=== PATIENT | male | born 1940 | race Caucasian/White ===

== ENCOUNTER → 2017-06-29 10:55 | Outpatient (CLI) | payer MEDICARE, OTHER, SELFPAY ==
[2017-06-29 12:39] LABS: Anion Gap 10 (5-15); BUN 41 mg/dL (7-18); BUN/Creat Ratio 36.6 RATIO (10-20); Calcium,Total 9.3 mg/dL (8.5-10.1); Chloride 100 mmol/L (98-107); Creatinine, Serum 1.12 mg/dL (0.70-1.30); EST Glomerular Filtration Rate 68 mL/min (>60); Est Glom Filt Rate - Afr Amer 82 mL/min (>60); Glucose 82 mg/dL (70-110); Potassium 4.3 mmol/L (3.5-5.1); Sodium Level 139 mmol/L (136-145)
== END ==
PROVIDERS: Family Provider Family Medicine; PCP Family Medicine; Visit Provider Family Medicine
DX: F03.90 Unspecified dementia, unspecified severity, without behavioral disturbance, psychotic disturbance, mood disturbance, and anxiety (principal)
CPT/HCPCS: 36415; 80048

== ENCOUNTER → 2017-07-16 12:13 | Outpatient (CLI) | payer MEDICARE, OTHER, SELFPAY ==
[2017-07-16 12:53] LABS: Amphetamine Urine VISTA NEGATIVE (<1000 ng/mL); Barbiturate Urine VISTA NEGATIVE (< 200 ng/mL); Benzodiazepine Urine VISTA NEGATIVE (< 200 ng/mL); Cocaine Urine VISTA NEGATIVE (< 300 ng/mL); Ecstacy Urine VISTA NEGATIVE (< 500 ng/mL); Methadone Urine VISTA NEGATIVE (< 300 ng/mL); PCP Urine VISTA NEGATIVE (< 25 ng/mL); THC Urine VISTA NEGATIVE (< 50 ng/mL); Vista UDS pH Range 4
== END ==
PROVIDERS: Family Provider Family Medicine; PCP Family Medicine; Visit Provider Anesthesiology Pain Medicine
DX: F11.20 Opioid dependence, uncomplicated (principal)
CPT/HCPCS: 80307

== ENCOUNTER 2017-07-22 17:11 | Inpatient (IN) | payer MEDICARE, OTHER, SELFPAY ==
[2017-07-22] VITALS (8 sets, daily range): BP systolic 90–112; BP diastolic 53–65; PULSE 74–87; RESP 14–18; TEMP 35.8–36.6; O2SAT 94–100; BMI 32.4; BMI 26.9
--- NOTE | 2017-07-22 18:04 | EKG12_ITS ---
Test Reason : GENERAL ILLNESS Blood Pressure : / mmHG Vent. Rate : 084 BPM Atrial Rate : 084 BPM P-R Int : 212 ms QRS Dur : 096 ms QT Int : 378 ms P-R-T Axes : 044 023 145 degrees QTc Int : 446 ms Somatic/motion artifact Sinus rhythm with 1st degree A-V block with Premature supraventricular complexes and with frequent an d consecutive Premature ventricular complexes Nonspecific T wave abnormality Abnormal ECG Confirmed by ILEANA JACKSON, ALEAH ([id number]), website/blog editor FLORENCIA BECKHAM ([id number]) on 07/25/2017 1:58:58 PM Referred By: DEVEN Confirmed By:ALEAH TEJEDA MD
--- NOTE | 2017-07-22 18:07 | RAD_ITS ---
STUDY: X-RAY CHEST REASON FOR EXAM: Male, 76 years old. Dyspnea. TECHNIQUE: Single AP portable view of the chest. COMPARISON: 07/11/2016. FINDINGS: The lungs are hyperexpanded. There are coarsened interstitial markings suggestive of mild chronic fibrosis. Probable stable scarring in the right lung base. No gross focal infiltrates. No gross effusions. Normal size heart. Normal mediastinum and jessica. Normal visualized pulmonary arteries. Normal visualized aortic arch and descending thoracic aorta. Normal visualized thoracic spine. Normal visualized ribs, clavicles, and shoulders. There is no demonstrated abnormality of the visualized soft tissue structures of the upper abdomen. 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 Probable scarring or atelectasis in the right lung base. Electronically Signed: Dick Gray MD at 19:31 EST , Service support ,
[2017-07-22 18:37] LABS: Absolute Lymphocyte Count 1.08 X10^3/ul (0.83-4.51); Absolute Neutrophil Count 8.5 X10^3/uL (2.0-7.7); Basophil# 0.03 X10^3/uL; Basophil% 0.3 % (0-1); Hematocrit 33.3 % (40-54); Hemoglobin 10.5 g/dl (13.0-16.5); Lymphocyte # 1.08 X10^3/ul (4.0); Lymphocyte % 10.3 % (19-41); Mean Corp Hgb Conc 31.5 g/gl (32-36); Mean Corpuscular Hgb 25.6 pg (27.0-32.0); Mean Corpuscular Volume 81.2 fL (80-94); Monocyte# 0.85 X10^3/uL; Monocyte% 8.1 % (0-10); Neutrophil # 8.53 X10^3/uL (2.7-7.7); Neutrophil % 81.1 % (47-70); Platelet Count 402 K/mm3 (150-450); RBC Distribution Width CV 16.2 % (11.6-14.6); RBC Distribution Width SD 46.8 fl (35.1-43.9); White Blood Count 10.5 K/mm3 (4.4-11.0)
[2017-07-22 18:45] LABS: POSITIVE COUNT NO; POSITIVE DIFFERENTIAL NO; POSITIVE MORPHOLOGY NO
[2017-07-22 18:56] LABS: Anion Gap 12 (5-15); BUN 95 mg/dL (7-18); Calcium,Total 9.2 mg/dL (8.5-10.1); Chloride 100 mmol/L (98-107); Creatinine, Serum 2.64 mg/dL (0.70-1.30); EST Glomerular Filtration Rate 25 mL/min (>60); Est Glom Filt Rate - Afr Amer 31 mL/min (>60); Estimated Creatinine Clearance 21.82 ml/min; Glucose 114 mg/dL (74-106); Sodium Level 136 mmol/L (136-145)
--- NOTE | 2017-07-22 18:59 | ED.RN ---
trop 1.2 called from [address] lab[address] dr youssef aware
--- NOTE | 2017-07-22 19:23 | ED.RN ---
PT UNABLE TO URINATE AFTER SEVERAL ATTEMPTS. BLADDER SCAN. [address] CARVALHO AWARE.
[2017-07-22 19:43] LABS: Mucous, Urine 0 SEEN /hpf (<or=2+)
[2017-07-22] MEDS: 0.9% Normal Saline 1,000 ML 150 ML IV (19:44)
--- NOTE | 2017-07-22 20:04 | ED.DCSUM_ITS ---
- ER Visit Summary Date of Service: 07/22/17 Chief Complaint: Sleeping more, decreased energy History of Present Illness: The patient is a 76 M brought in from home after feeling more fatigued and having decreased activity tolerance of the past several days. He has not had a fever. Family states has not been wanting to eat or drink as much. His legs are more swollen late last week. called who said to elevate legs of the weekend. She also gave him extra hydrochlorothiazide without significant improvement. They do note that he has not been urinating much. They state that the patient seems to be short of breath with ambulation. He complains of generalized body aches, worse in the joints. Past history significant for reflux disease, hypertension, high cholesterol, skin cancer, PE, anemia, depression, and back pain with sciatica. Physical Examination: Blood pressure is 105/57, temperature 96.5, heart rate 87 , respiratory rate 18, pulse ox 100% on room air. Head neck examination is grossly unremarkable. Heart is regular. I appreciate no murmurs. Lung sounds are grossly clear. Abdomen is soft nontender. Lower extremity examination reveals 3+ edema to the lower extremities. He wears a brace on his right lower leg chronically. He has a small wound to the right great toe that does not appear to be infected. Test Results: EKG is sinus 84 with frequent PVCs. Lateral T-wave inversions are noted. Portable chest x-ray reveals 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 There is probable scarring or atelectasis at the right lung base. CBC was normal white count with hemoglobin 10.5. Chemistry studies reveal BUN of 95 and a creatinine of 2.64. This is compared to a creatinine of 1.12 on June 29 of this year. Troponin is elevated at 1.2 and BNP is 2095. Bedside bladder scan was performed and only revealed 40 cc of urine. Emergency Department Course and Treatment: Patient was given gentle IV fluids. Test results were discussed with the patient and family at bedside. He will need to be admitted for further treatment and evaluation. Hospitalist is on page at this time. Treatment Plan: [] Disposition: Admit Impression: 1. Acute renal failure 2. NSTEMI 3. Elevated BNP Addendum: At hospital's request I did speak with cardiology. Dr. Salcido requests the patient be admitted to the hospitalist service and an echocardiogram obtained tomorrow. He does not wish for any anticoagulation to be started tonight. This note was generated with [employer] dictation software. It may contain incorrect words, spelling, and punctuation that were not noted in review of the chart prior to signing ED Disposition - Plan for ED Patient: Disposition: Home or Assisted Living Chief Complaint: General Illness
--- NOTE | 2017-07-22 20:07 | PCM.HP.STD ---
Problem List (1) Dementia Status: Chronic Qualifiers: Dementia type: unspecified type Dementia behavioral disturbance: without behavioral disturbance Qualified Code(s): F03.90 - Unspecified dementia without behavioral disturbance (2) Constipation Status: Chronic Qualifiers: Constipation type: unspecified constipation type Qualified Code(s): K59.00 - Constipation, unspecified (3) GERD (gastroesophageal reflux disease) Status: Chronic Qualifiers: Esophagitis presence: esophagitis presence not specified Qualified Code(s): K21.9 - Gastro-esophageal reflux disease without esophagitis (4) Iron deficiency anemia Status: Chronic Qualifiers: Iron deficiency anemia type: unspecified iron deficiency Qualified Code(s): D50.9 - Iron deficiency anemia, unspecified (5) Depression Status: Chronic Qualifiers: Depression Type: unspecified Qualified Code(s): F32.9 - Major depressive disorder, single episode, unspecified (6) History of pulmonary embolism Status: Chronic (7) Hyperlipidemia Status: Chronic Qualifiers: (8) Hypertension Status: Chronic Qualifiers: Hypertension type: essential hypertension Qualified Code(s): I10 - Essential (primary) hypertension (9) Chronic lower back pain Status: Chronic Qualifiers: Back pain laterality: unspecified Sciatica presence: unspecified whether sciatica present Qualified Code(s): M54.5 - Low back pain; G89.29 - Other chronic pain (10) Chronic obstructive pulmonary disease Status: Chronic Qualifiers: COPD type: unspecified COPD Qualified Code(s): J44.9 - Chronic obstructive pulmonary disease, unspecified (11) Former tobacco use Status: Chronic History of Present Illness Date of Admission: 07/22/17 Chief Complaint: Malaise, poor intake, decreased UOP. The patient is a 76 y/o M w/ PMHx: Dementia unclear type with unclear behavioral history, HTN, HLD, Chronic back pain, Depression, Obesity, History of PE, Chronic COPD, Former Tobacco use, Chronic Fe/Normocytic Anemia (Baseline Hgb 10) who presents to the [facility] ED on 07/22/17 with decreased oral intake, dyspnea with exertion, decreased energy, sleeping more than baseline. This past Sunday the family contacted his PCP with complaint of BL LE increased edema (2-3+) with PCP recommendation for elevation; however, administered him additional HCTZ without marked improvement. In the ED work-up included T 96.5, HR 70s, BP 90/53-->111/65 after initiation IVFs, RR 14, 100% on RA, CBC w/ WBC 10.5, Hgb 10.5, Plts 402 with L shift, BMP w/ BUN/Cr 95/2.64 (baseline Cr 0.8-1), glucose 114, BNP 2095.9, Trop 1.20, UA pending, CXR with chronic COPD/fibrotic changes, EKG w/ lateral T-wave inversions. In the ED patient administered NS. Past Medical History Past Medical History (Chronic Problems): Chronic Problems Dementia (Chronic) Chronic obstructive pulmonary disease (Chronic) Former tobacco use (Chronic) Subacute delirium (Chronic) Hypokalemia (Chronic) Constipation (Chronic) GERD (gastroesophageal reflux disease) (Chronic) Iron deficiency anemia (Chronic) Depression (Chronic) Pulmonary embolism (Chronic) History of pulmonary embolism (Chronic) Status post total right knee replacement (Chronic) Hyperlipidemia (Chronic) Hypertension (Chronic) Chronic lower back pain (Chronic) Allergies hydrocodone [From Vicodin] Adverse Reaction (Verified 07/22/17 17:19) Itching lorazepam [From Ativan] Adverse Reaction (Verified 07/22/17 17:19) Other MAKES ME CRAZY morphine Adverse Reaction (Verified 07/22/17 17:19) Other MAKES HIM CRAZY PER Home Medications: Ambulatory Orders Medication Instructions Recorded Amlodipine Besylate [Norvasc] 10 mg PO DAILY 07/11/16 Duloxetine Hcl [Cymbalta] 60 mg PO DAILY 07/11/16 Hydrochlorothiazide [Hctz] 25 mg PO DAILY 07/11/16 Lisinopril [Prinivil] 5 mg PO DAILY 07/11/16 Omeprazole [Prilosec] 40 mg PO DAILY 09/20/16 Simvastatin [Zocor] 10 mg PO QHS 09/20/16 Acetaminophen [Tylenol] 1,000 mg PO Q8 30 Days tablet 09/30/16 DiphenhydrAMINE [Benadryl] 25 mg PO QHS PRN PRN 07/22/17 Memantine HCl/Donepezil HCl 1 each PO QHS 07/22/17 [Namzaric 28 mg-10 mg Capsule] Multivit-Min/FA/Lycopen/Lutein 1 each PO DAILY 07/22/17 [Centrum Silver Tablet] Oxycodone HCl/Acetaminophen 1 tablet PO TID 07/22/17 [Percocet 10-325 mg Tablet] Oxycodone Myristate [Xtampza ER] 18 mg PO BID 07/22/17 Surgical History: appendectomy, cholecystectomy, herniorrhaphy, total hip arthroplasty - Right, 2011., total knee arthroplasty - 2011, then 09/27/2016., tonsillectomy, - - Laminectomy 1974, Spinal fusion L4, L5, S1 1979, Right knee antibiotic spacer 07/12/2016 Dr. Perea. Psychiatric History: Depression Lives: Spouse/ Significant Other Smoking Status: Former smoker - Quit ~2 years prior. Tobacco Use: Non-smoker Alcohol: Rare Drugs: None - *Family History Maternal History Items: Dementia Paternal History Items: Cancer - Father age 47 from liver CA. Review of Systems Constitutional: Reports: Anorexia, Malaise, Weakness, Fatigue. Denies: Chills, Fever, Weight Change HEENT: Denies: Head Aches, Sinus Congestion, Sinus Drainage Cardiovascular: Denies: Chest Pain, Palpitations Respiratory: Reports: Shortness of Breath, Shortness of breath at rest, Shortness of breath upon exertion. Denies: Cough, Sputum production, Wheezing Gastrointestinal: Denies: Abdominal Pain, Nausea, Vomiting Genitourinary: Denies: Dysuria Musculoskeletal: Reports: Back Pain, Foot Pain. Denies: Joint Pain, Joint Tenderness Skin: Reports: Wounds. Denies: Rash Neurological: Denies: Numbness, Tingling, Focal weakness Psychiatric: Reports: Depression. Denies: Anxiety, Homicidal Ideations, Suicidal Ideations Hematologic/ Lymphatic: Reports: Anemia. Denies: Easy Bruising, Easy Bleeding VTE Information - Inpt Only VTE Present on Admission: No VTE Mechan Device Prophylaxis: SCD's VTE Pharm Prophylaxis ordered?: Yes Subjective: Seated upright in the ED bed, NAD, denies any current chest pain or dyspnea. Objective: Physical Examination: General: awake, alert, oriented x 3 and cooperative, seated upright in the ED bed in no apparent distress. Skin: normal color, turgor, no icterus, cyanosis. HEENT: AT/NC, EOMI, PERRLA, mildly dry MM, no carotid bruits or JVD noted. Lungs: Diminished BS, > BL bases, mild effort, no rales, ronchi or wheezing. Heart: Regular rate and rhythm; no gallop, rub audible. Abdomen: soft, NTTP, ND, normal BS, no HSM. Extremities: no cyanosis, clubbing, BL LE 2-3+ edema ankles to distal park, R foot drop, R great toe small pressure ulcer. Neurological: patient awake, alert, oriented x 3; cognitive function intact; pupils equally reactive to light and accomodation; cranial nerves II-XII grossly normal, moving all 4 extremities but limited, no focal deficits, strength moderately to severely globally decreased secondary to acute presentation. Psychiatric: affect appears mildly flat, fatigued, no acute evidence of depressive or anxiety feelings. - Physical Exam Vital Signs Temp Pulse Resp BP Pulse Ox 96.5 F L 78 14 111/65 100 07/22/17 17:20 07/22/17 18:45 07/22/17 18:45 07/22/17 18:45 07/22/17 17:16 Oxygen Delivery Method Room Air Weight: 200 lb 13.458 oz Body Mass Index (BMI) 32.4 Laboratory Tests Past 24 Hrs 07/22/17 07/22/17 07/22/17 18:21 18:21 18:21 WBC 10.5 RBC 4.10 L Hgb 10.5 L Hct 33.3 L MCV 81.2 MCH 25.6 L MCHC 31.5 L RDW 16.2 H RDW Differential 46.8 H Plt Count 402 MPV 9.0 Immature Gran % (Auto) 0.200 Neut % (Auto) 81.1 H Lymph % (Auto) 10.3 L [place] % (Auto) 8.1 Eos % (Auto) 0.0 Baso % (Auto) 0.3 Absolute Neuts (auto) 8.5 H Absolute Lymphs (auto) 1.08 Total Counted Not Reportable Sodium 136 Potassium 5.0 Chloride 100 Carbon Dioxide 24.0 Anion Gap 12 BUN 95 H Creatinine 2.64 H Estim Creat Clear Calc 21.82 Est GFR (MDRD) Af Amer 31 L Est GFR (MDRD) Non-Af 25 L BUN/Creatinine Ratio 36.0 H Glucose 114 H Calcium 9.2 Troponin I 1.20 H* B-Natriuretic Peptide 2095.9 H Urine Color Urine Clarity Urine pH Ur Specific Ashby Urine Protein Urine Glucose (UA) Urine Ketones Urine Occult Blood Urine Nitrite Urine Bilirubin Urine Urobilinogen Ur Leukocyte Esterase Urine RBC Urine WBC Ur Squamous Epith Cells Urine Bacteria Urine Mucus 07/22/17 19:34 WBC RBC Hgb Hct MCV MCH MCHC RDW RDW Differential Plt Count MPV Immature Gran % (Auto) Neut % (Auto) Lymph % (Auto) [place] % (Auto) Eos % (Auto) Baso % (Auto) Absolute Neuts (auto) Absolute Lymphs (auto) Total Counted Sodium Potassium Chloride Carbon Dioxide Anion Gap BUN Creatinine Estim Creat Clear Calc Est GFR (MDRD) Af Amer Est GFR (MDRD) Non-Af BUN/Creatinine Ratio Glucose Calcium Troponin I B-Natriuretic Peptide Urine Color Pending Urine Clarity Pending Urine pH Pending Ur Specific Ash[place] Pending Urine Protein Pending Urine Glucose (UA) Pending Urine Ketones Pending Urine Occult Blood Pending Urine Nitrite Pending Urine Bilirubin Pending Urine Urobilinogen Pending Ur Leukocyte Esterase Pending Urine RBC Pending Urine WBC Pending Ur Squamous Epith Cells Pending Urine Bacteria Pending Urine Mucus Pending Assessment/Plan The patient is a 76 y/o M w/ PMHx: Dementia unclear type with unclear behavioral history, HTN, HLD, Chronic back pain, Depression, Obesity, History of PE, Chronic COPD, Former Tobacco use, Chronic Fe/Normocytic Anemia who presents to the [facility] ED on 07/22/17 with decreased oral intake, dyspnea with exertion, decreased energy, sleeping more than baseline. (1) Acute NSTEMI: EKG in ED w/ lateral T-wave inversions, CXR w/ chronic COPD changes. Trop elevated, 1.20. Will admit to PCU, maintain on a monitored bed, continue serial cardiac enzymes and EKGs. Obtain magnesium level upon admission. Start Heparin drip. Continue medical management w/ asa, add BB, statin w/ AM FLP. Cardiology consulted, given KARINE will need to continue hydration and have renal improvement prior. ASA, NG. ECHO pending. Mag pending. (2) Acute kidney injury: Secondary to poor intake, increased nephrotoxic regimen. Admission BUN/Cr 95/2.64, prior baseline creatinine noted to be 0.8-1. Will gently hydrate, hold nephrotoxic medications and repeat chemistry in AM. If no improvement would plan FeNa and renal US assessment. (3) ? Underlying CHF: Elevated BNP but concurrently elevated troponin, BL LE 2-3+ pitting edema with complaint of exertional dyspnea, given presentation 100% on RA, CXR without congestion, effusions, appears compensated, will defer initiation of treatment given KARINE concurrently, will maintain on asa, add BB, statin w/ AM FLP. Holding ACEI, HCTZ. Magnesium and TSH pending. ECHO pending. BL LE snug JANINE wraps and elevation. (4) Chronic COPD: Will maintain on oxygen with wean as tolerated to room air/home oxygen supplementation, continue ATC duonebs, PRN albuterol, HOB, IS parameters. (5) Hypertension: Continue home regimen including addition of beta-benitez, Norvasc, holding lisinopril and hydrochlorothiazide secondary to KARINE, PRN hydralazine. (6) Hyperlipidemia: Continue home statin regimen. AM FLP. (7) Dementia unclear type with unclear behavioral history: Continue home namzaric regimen. Adverse rxn hx to ativan of note. (8) Depression: Continue home regimen cymbalta. (9) Chronic Fe/Normocytic Anemia: Admission Hgb 10.5, baseline Hgb 10, stable. (10) Chronic Back Pain: Continue home chronic narcotic regimen, PRN regimen, fall precautions, position changes. (11) GERD: PPI. 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 (13) DVT Prophylaxis: SCDs, heparin drip. (14) CODE status: Discussed CODE status at length including difference between FULL code, DNR-CCA and DNR-CC status. Following discussions about the differences in these status, requested FULL CODE. Advanced Care Planning Face to Face Time: 16 minutes. Code Visit Inpatient E&M: 31054 Init Hosp L3 Procedures: 75041 Advncd Care Plan 30 Min
[2017-07-22 20:12] LABS: Color, Urine Yellow (Yellow); Glucose, Dipstick Normal (Normal); Ketone-Dipstick 5 mg/dl (Negative); Leukocyte Esterase-Dipstick 25 /ul (Negative); Nitrite-Dipstick Negative (Negative); Occult Blood-Urine 10 /ul (Negative); Protein-Dipstick 100 mg/dl (Negative); Specific Gravity, Urine 1.025 (1.002-1.030); Urine Clarity Clear (Clear); Urine Urobilinogen 1 mg/dl (Normal)
[2017-07-22 20:13] LABS: Urine Bilirubin Dipstick 1 mg/dL (Negative)
--- NOTE | 2017-07-22 20:13 | HP.PCM_ITS ---
Problem List (1) Dementia Status: Chronic Qualifiers: Dementia type: unspecified type Dementia behavioral disturbance: without behavioral disturbance Qualified Code(s): F03.90 - Unspecified dementia without behavioral disturbance (2) Constipation Status: Chronic Qualifiers: Constipation type: unspecified constipation type Qualified Code(s): K59.00 - Constipation, unspecified (3) GERD (gastroesophageal reflux disease) Status: Chronic Qualifiers: Esophagitis presence: esophagitis presence not specified Qualified Code(s) : K21.9 - Gastro-esophageal reflux disease without esophagitis (4) Iron deficiency anemia Status: Chronic Qualifiers: Iron deficiency anemia type: unspecified iron deficiency Qualified Code(s) : D50.9 - Iron deficiency anemia, unspecified (5) Depression Status: Chronic Qualifiers: Depression Type: unspecified Qualified Code(s): F32.9 - Major depressive disorder, single episode, unspecified (6) History of pulmonary embolism Status: Chronic (7) Hyperlipidemia Status: Chronic Qualifiers: (8) Hypertension Status: Chronic Qualifiers: Hypertension type: essential hypertension Qualified Code(s): I10 - Essential (primary) hypertension (9) Chronic lower back pain Status: Chronic Qualifiers: Back pain laterality: unspecified Sciatica presence: unspecified whether sciatica present Qualified Code(s): M54.5 - Low back pain; G89.29 - Other chronic pain (10) Chronic obstructive pulmonary disease Status: Chronic Qualifiers: COPD type: unspecified COPD Qualified Code(s): J44.9 - Chronic obstructive pulmonary disease, unspecified (11) Former tobacco use Status: Chronic History of Present Illness Date of Admission: 07/22/17 Chief Complaint: Malaise, poor intake, decreased UOP. The patient is a 76 y/o M w/ PMHx: Dementia unclear type with unclear behavioral history, HTN, HLD, Chronic back pain, Depression, Obesity, History of PE, Chronic COPD, Former Tobacco use, Chronic Fe/Normocytic Anemia (Baseline Hgb 10) who presents to the [facility] ED on 07/22/17 with decreased oral intake, dyspnea with exertion, decreased energy, sleeping more than baseline. This past Sunday the family contacted his PCP with complaint of BL LE increased edema (2-3 +) with PCP recommendation for elevation; however, administered him additional HCTZ without marked improvement. In the ED work-up included T 96.5, HR 70s, BP 90/53-->111/65 after initiation IVFs, RR 14, 100% on RA, CBC w/ WBC 10.5, Hgb 10.5, Plts 402 with L shift, BMP w/ BUN/Cr 95/2.64 (baseline Cr 0.8-1) , glucose 114, BNP 2095.9, Trop 1.20, UA pending, CXR with chronic COPD/ fibrotic changes, EKG w/ lateral T-wave inversions. In the ED patient administered NS. Past Medical History Past Medical History (Chronic Problems): Chronic Problems Dementia (Chronic) Chronic obstructive pulmonary disease (Chronic) Former tobacco use (Chronic) Subacute delirium (Chronic) Hypokalemia (Chronic) Constipation (Chronic) GERD (gastroesophageal reflux disease) (Chronic) Iron deficiency anemia (Chronic) Depression (Chronic) Pulmonary embolism (Chronic) History of pulmonary embolism (Chronic) Status post total right knee replacement (Chronic) Hyperlipidemia (Chronic) Hypertension (Chronic) Chronic lower back pain (Chronic) Allergies hydrocodone [From Vicodin] Adverse Reaction (Verified 07/22/17 17:19) Itching lorazepam [From Ativan] Adverse Reaction (Verified 07/22/17 17:19) Other MAKES ME CRAZY morphine Adverse Reaction (Verified 07/22/17 17:19) Other MAKES HIM CRAZY PER Home Medications: Ambulatory Orders Medication Instructions Recorded Amlodipine Besylate [Norvasc] 10 mg PO DAILY 07/11/16 Duloxetine Hcl [Cymbalta] 60 mg PO DAILY 07/11/16 Hydrochlorothiazide [Hctz] 25 mg PO DAILY 07/11/16 Lisinopril [Prinivil] 5 mg PO DAILY 07/11/16 Omeprazole [Prilosec] 40 mg PO DAILY 09/20/16 Simvastatin [Zocor] 10 mg PO QHS 09/20/16 Acetaminophen [Tylenol] 1,000 mg PO Q8 30 Days tablet 09/30/16 DiphenhydrAMINE [Benadryl] 25 mg PO QHS PRN PRN 07/22/17 Memantine HCl/Donepezil HCl 1 each PO QHS 07/22/17 [Namzaric 28 mg-10 mg Capsule] Multivit-Min/FA/Lycopen/Lutein 1 each PO DAILY 07/22/17 [Centrum Silver Tablet] Oxycodone HCl/Acetaminophen 1 tablet PO TID 07/22/17 [Percocet 10-325 mg Tablet] Oxycodone Myristate [Xtampza ER] 18 mg PO BID 07/22/17 Surgical History: appendectomy, cholecystectomy, herniorrhaphy, total hip arthroplasty - Right, 2011., total knee arthroplasty - 2011, then 09/27/2016., tonsillectomy, - - Laminectomy 1974, Spinal fusion L4, L5, S1 1979, Right knee antibiotic spacer 07/12/2016 Dr. Perea. Psychiatric History: Depression Lives: Spouse/ Significant Other Smoking Status: Former smoker - Quit ~2 years prior. Tobacco Use: Non-smoker Alcohol: Rare Drugs: None - *Family History Maternal History Items: Dementia Paternal History Items: Cancer - Father age 47 from liver CA. Review of Systems Constitutional: Reports: Anorexia, Malaise, Weakness, Fatigue. Denies: Chills, Fever, Weight Change HEENT: Denies: Head Aches, Sinus Congestion, Sinus Drainage Cardiovascular: Denies: Chest Pain, Palpitations Respiratory: Reports: Shortness of Breath, Shortness of breath at rest, Shortness of breath upon exertion. Denies: Cough, Sputum production, Wheezing Gastrointestinal: Denies: Abdominal Pain, Nausea, Vomiting Genitourinary: Denies: Dysuria Musculoskeletal: Reports: Back Pain, Foot Pain. Denies: Joint Pain, Joint Tenderness Skin: Reports: Wounds. Denies: Rash Neurological: Denies: Numbness, Tingling, Focal weakness Psychiatric: Reports: Depression. Denies: Anxiety, Homicidal Ideations, Suicidal Ideations Hematologic/ Lymphatic: Reports: Anemia. Denies: Easy Bruising, Easy Bleeding VTE Information - Inpt Only VTE Present on Admission: No VTE Mechan Device Prophylaxis: SCD's VTE Pharm Prophylaxis ordered?: Yes Subjective: Seated upright in the ED bed, NAD, denies any current chest pain or dyspnea. Objective: Physical Examination: General: awake, alert, oriented x 3 and cooperative, seated upright in the ED bed in no apparent distress. Skin: normal color, turgor, no icterus, cyanosis. HEENT: AT/NC, EOMI, PERRLA, mildly dry MM, no carotid bruits or JVD noted. Lungs: Diminished BS, > BL bases, mild effort, no rales, ronchi or wheezing. Heart: Regular rate and rhythm; no gallop, rub audible. Abdomen: soft, NTTP, ND, normal BS, no HSM. Extremities: no cyanosis, clubbing, BL LE 2-3+ edema ankles to distal park, R foot drop, R great toe small pressure ulcer. Neurological: patient awake, alert, oriented x 3; cognitive function intact; pupils equally reactive to light and accomodation; cranial nerves II-XII grossly normal, moving all 4 extremities but limited, no focal deficits, strength moderately to severely globally decreased secondary to acute presentation. Psychiatric: affect appears mildly flat, fatigued, no acute evidence of depressive or anxiety feelings. - Physical Exam Vital Signs Temp Pulse Resp BP Pulse Ox 96.5 F L 78 14 111/65 100 07/22/17 17:20 07/22/17 18:45 07/22/17 18:45 07/22/17 18:45 07/22/17 17:16 Oxygen Delivery Method Room Air Weight: 200 lb 13.458 oz Body Mass Index (BMI) 32.4 Laboratory Tests Past 24 Hrs 07/22/17 07/22/17 07/22/17 18:21 18:21 18:21 WBC 10.5 RBC 4.10 L Hgb 10.5 L Hct 33.3 L MCV 81.2 MCH 25.6 L MCHC 31.5 L RDW 16.2 H RDW Differential 46.8 H Plt Count 402 MPV 9.0 Immature Gran % (Auto) 0.200 Neut % (Auto) 81.1 H Lymph % (Auto) 10.3 L [place] % (Auto) 8.1 Eos % (Auto) 0.0 Baso % (Auto) 0.3 Absolute Neuts (auto) 8.5 H Absolute Lymphs (auto) 1.08 Total Counted Not Reportable Sodium 136 Potassium 5.0 Chloride 100 Carbon Dioxide 24.0 Anion Gap 12 BUN 95 H Creatinine 2.64 H Estim Creat Clear Calc 21.82 Est GFR (MDRD) Af Amer 31 L Est GFR (MDRD) Non-Af 25 L BUN/Creatinine Ratio 36.0 H Glucose 114 H Calcium 9.2 Troponin I 1.20 H* B-Natriuretic Peptide 2095.9 H Urine Color Urine Clarity Urine pH Ur Specific [place] Urine Protein Urine Glucose (UA) Urine Ketones Urine Occult Blood Urine Nitrite Urine Bilirubin Urine Urobilinogen Ur Leukocyte Esterase Urine RBC Urine WBC Ur Squamous Epith Cells Urine Bacteria Urine Mucus 07/22/17 19:34 WBC RBC Hgb Hct MCV MCH MCHC RDW RDW Differential Plt Count MPV Immature Gran % (Auto) Neut % (Auto) Lymph % (Auto) [place] % (Auto) Eos % (Auto) Baso % (Auto) Absolute Neuts (auto) Absolute Lymphs (auto) Total Counted Sodium Potassium Chloride Carbon Dioxide Anion Gap BUN Creatinine Estim Creat Clear Calc Est GFR (MDRD) Af Amer Est GFR (MDRD) Non-Af BUN/Creatinine Ratio Glucose Calcium Troponin I B-Natriuretic Peptide Urine Color Pending Urine Clarity Pending Urine pH Pending Ur Specific [place] Pending Urine Protein Pending Urine Glucose (UA) Pending Urine Ketones Pending Urine Occult Blood Pending Urine Nitrite Pending Urine Bilirubin Pending Urine Urobilinogen Pending Ur Leukocyte Esterase Pending Urine RBC Pending Urine WBC Pending Ur Squamous Epith Cells Pending Urine Bacteria Pending Urine Mucus Pending Assessment/Plan The patient is a 76 y/o M w/ PMHx: Dementia unclear type with unclear behavioral history, HTN, HLD, Chronic back pain, Depression, Obesity, History of PE, Chronic COPD, Former Tobacco use, Chronic Fe/Normocytic Anemia who presents to the [facility] ED on 07/22/17 with decreased oral intake, dyspnea with exertion, decreased energy, sleeping more than baseline. (1) Acute NSTEMI: EKG in ED w/ lateral T-wave inversions, CXR w/ chronic COPD changes. Trop elevated, 1.20. Will admit to PCU, maintain on a monitored bed, continue serial cardiac enzymes and EKGs. Obtain magnesium level upon admission. Start Heparin drip. Continue medical management w/ asa, add BB, statin w/ AM FLP. Cardiology consulted, given KARINE will need to continue hydration and have renal improvement prior. ASA, NG. ECHO pending. Mag pending. (2) Acute kidney injury: Secondary to poor intake, increased nephrotoxic regimen. Admission BUN/Cr 95/2.64, prior baseline creatinine noted to be 0.8-1. Will gently hydrate, hold nephrotoxic medications and repeat chemistry in AM. If no improvement would plan FeNa and renal US assessment. (3) ? Underlying CHF: Elevated BNP but concurrently elevated troponin, BL LE 2-3 + pitting edema with complaint of exertional dyspnea, given presentation 100% on RA, CXR without congestion, effusions, appears compensated, will defer initiation of treatment given KARINE concurrently, will maintain on asa, add BB, statin w/ AM FLP. Holding ACEI, HCTZ. Magnesium and TSH pending. ECHO pending. BL LE snug JANINE wraps and elevation. (4) Chronic COPD: Will maintain on oxygen with wean as tolerated to room air/ home oxygen supplementation, continue ATC duonebs, PRN albuterol, HOB, IS parameters. (5) Hypertension: Continue home regimen including addition of beta-benitez, Norvasc, holding lisinopril and hydrochlorothiazide secondary to KARINE, PRN hydralazine. (6) Hyperlipidemia: Continue home statin regimen. AM FLP. (7) Dementia unclear type with unclear behavioral history: Continue home namzaric regimen. Adverse rxn hx to ativan of note. (8) Depression: Continue home regimen cymbalta. (9) Chronic Fe/Normocytic Anemia: Admission Hgb 10.5, baseline Hgb 10, stable. (10) Chronic Back Pain: Continue home chronic narcotic regimen, PRN regimen, fall precautions, position changes. (11) GERD: PPI. 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 (13) DVT Prophylaxis: SCDs, heparin drip. (14) CODE status: Discussed CODE status at length including difference between FULL code, DNR-CCA and DNR-CC status. Following discussions about the differences in these status, requested FULL CODE. Advanced Care Planning Face to Face Time: 16 minutes. Code Visit Inpatient E&M: 94777 Init Hosp L3 Procedures: 71018 Advncd Care Plan 30 Min
[2017-07-22 20:17] LABS: Red Blood Cells-Urine 0-5 SEEN /hpf (0-5); Squamous Epithelial Cells - UA 0-5 SEEN /hpf (0-5)
[2017-07-22 20:18] LABS: Bacteria 2+ /hpf (None Seen)
[2017-07-22 20:19] LABS: White Blood Cells 0-5 SEEN /hpf (0-5)
[2017-07-22 20:20] LABS: Hyaline Cast 10-25 SEEN /lpf (0-5)
[2017-07-22 21:43] LABS: Magnesium 2.9 mg/dL (1.6-2.6)
--- NOTE | 2017-07-22 21:44 | NURSING ---
, Monae, (cell) [phone] (home)
[2017-07-22] MEDS: 0.9% Normal Saline 1,000 ML 100 ML IV (23:39)
[2017-07-22] MEDS: Carvedilol 6.25 MG Tablet PO (23:39)
[2017-07-22] MEDS: oxyCODONE 5 MG Tablet 10 MG PO (23:39)
[2017-07-22] MEDS: Atorvastatin Calcium 10 MG Tablet 5 MG PO (23:40)
[2017-07-22] MEDS: Aspirin E.C. 81 MG Tablet PO (23:42)
[2017-07-23] VITALS (13 sets, daily range): BP systolic 95–102; BP diastolic 50–67; PULSE 68–85; RESP 12–18; TEMP 36.3–36.7; O2SAT 93–98
[2017-07-23 00:22] LABS: International Normalized Ratio 1.2; Prothrombin Time (Protime)PT. 14.7 SECONDS (11.7-14.9)
[2017-07-23 00:23] LABS: Partial Thromboplast Time 34.2 Seconds (24.1-36.2)
[2017-07-23] MEDS: CLARIFY ORDER 1 EACH NOTE (00:24)
[2017-07-23] MEDS: HEPARIN/D5w 25,000 UNITS 25,000 UNITS/250 ML IV.SOLN. 12 UNITS IV (00:39)
[2017-07-23] MEDS: HYDROmorphone 1 MG/ML Syringe 0.5 MG IV (01:05)
[2017-07-23] MEDS: oxyCODONE 5 MG Tablet 10 MG PO ×2 (03:39→15:37)
--- NOTE | 2017-07-23 05:55 | EKG12_ITS ---
Test Reason : ROUTINE AM Blood Pressure : / mmHG Vent. Rate : 078 BPM Atrial Rate : 078 BPM P-R Int : 194 ms QRS Dur : 086 ms QT Int : 420 ms P-R-T Axes : 052 064 197 degrees QTc Int : 478 ms Sinus rhythm with frequent Premature ventricular complexes in a pattern of bigeminy ST & T wave abnormality, consider anterolateral ischemia Abnormal ECG When compared with ECG of 22-JUL-2017 18:12, MANUAL COMPARISON REQUIRED, DATA IS UNCONFIRMED Confirmed by MASHA BORJA ([id number]), research editor FLORENCIA BECKHAM ([id number] on 07/26/2017 3:16:03 PM Referred By: DERRICK Confirmed By:MASHA BORJA
--- NOTE | 2017-07-23 05:55 | ECHOD_ITS ---
Reason For Study: CHF Procedure This was a 2D Doppler, Color Flow transthoracic echocardiogram. Exam performed portable in patient room. Left Ventricle Severely dilated left ventricle. The estimated ejection fraction is 10-15 %. There is severe global hypokinesis of the left ventricle. Right Ventricle Moderately dilated right ventricle. Moderate global right ventricular systolic dysfunction. Atria The left atrium is moderately enlarged. The right atrium is mildly enlarged. Normal atrial septum. Mitral Valve Mild diffuse mitral valve thickening. Moderate mitral annular calcification extending into the posterior leaflet. Trivial mitral valve insufficiency. Tricuspid Valve Normal tricuspid valve. Moderate (2+) tricuspid valve insufficiency. Right ventricular systolic pressure estimated to be 18 mmHg. Pulmonary pressures most likely underestimated. Aortic Valve Trisinus/trileaflet aortic valve. Mild focal aortic valve thickening. Trivial aortic valve insufficiency. Pulmonic Valve Normal pulmonic valve. Great Vessels Normal aortic root. Normal arch. The inferior vena cava is dilated. No collapse of the inferior vena cava. Pericardium/Pleural No pericardial effusion. Medication Definity0.5ml given slow IV push to enhance endocardial definition. MMode/2D Measurements & Calculations LVIDd: 5.2 cm IVSd: 1.3 cm Ao root diam: 3.2 cm LVIDs: 4.7 cm LVPWd: 0.99 cm LA dimension: 4.0 cm FS: 10.5 % LAV(MOD-bp): 80.3 ml LAV(MOD-bp) Indexed: 38.7 ml/m2 LA A4 area: 24.9 cm2 RA A4 area: 25.4 cm2 LAV(MOD-sp2): 70.2 ml LAV(MOD-sp4): 87.9 ml Doppler Measurements & Calculations MV E max wes: 67.7 cm/sec Ao V2 max: 102.9 cm/sec LV V1 max: 76.4 cm/sec MV A max wes: 78.1 cm/sec Ao max P.2 mmHg LV V1 max P.9 mmHg MV E/A: 0.87 Ao V2 mean: 86.0 cm/sec Ao mean P.1 mmHg Ao V2 VTI: 19.0 cm PA V2 max: 64.9 cm/sec TR max wes: 165.0 cm/sec TR max P.1 mmHg Interpretation Summary Severely dilated left ventricle. The estimated ejection fraction is 10-15 %. There is severe global hypokinesis of the left ventricle. Moderately dilated right ventricle. Moderate global right ventricular systolic dysfunction. The left atrium is moderately enlarged. Trivial mitral valve insufficiency. Moderate (2+) tricuspid valve insufficiency. Right ventricular systolic pressure estimated to be 18 mmHg. Pulmonary pressures most likely underestimated. Trivial aortic valve insufficiency. The inferior vena cava is dilated No collapse of the inferior vena cava. Compared to echo report dated 07/12/2016, LV function has markedly deteriorated from 60% to 10-15%. Ordering Physician: Natali Santiago Referring Physician: Jonel Mckeon Performed By: Mireille Francis, SILVIO, RVT
[2017-07-23 06:49] LABS: Partial Thromboplast Time 130.5 Seconds (24.1-36.2)
[2017-07-23 06:55] LABS: Absolute Lymphocyte Count 1.97 X10^3/ul (0.83-4.51); Absolute Neutrophil Count 6.8 X10^3/uL (2.0-7.7); Basophil# 0.02 X10^3/uL; Basophil% 0.2 % (0-1); Eosinophil# 0.02 X10^3/uL; Eosinophils% 0.2 % (0-5); Hematocrit 31.9 % (40-54); Lymphocyte # 1.97 X10^3/ul (4.0); Lymphocyte % 20.6 % (19-41); Mean Corp Hgb Conc 31.3 g/gl (32-36); Mean Corpuscular Hgb 25.3 pg (27.0-32.0); Mean Corpuscular Volume 80.6 fL (80-94); Mean Platelet Vol. 8.9 fl (6.2-12.0); Monocyte# 0.75 X10^3/uL; Monocyte% 7.9 % (0-10); Neutrophil # 6.78 X10^3/uL (2.7-7.7); Platelet Count 350 K/mm3 (150-450); RBC Distribution Width CV 16.2 % (11.6-14.6); RBC Distribution Width SD 46.9 fl (35.1-43.9); Red Blood Count 3.96 M/mm3 (4.6-6.2); White Blood Count 9.6 K/mm3 (4.4-11.0)
[2017-07-23] MEDS: Ipratropium/Albuterol Sulfate 3 ML AMPUL.NEB INHALATION ×2 (07:01→19:01)
[2017-07-23 07:02] LABS: AST(SGOT) 36 U/L (15-37); Alanine Aminotransfer ALT/SGPT 45 U/L (16-61); Albumin, Serum 2.9 g/dL (3.2-5.0); Alkaline Phosphatase 120 U/L (45-117); Anion Gap 13 (5-15); BUN 97 mg/dL (7-18); BUN/Creat Ratio 42.4 RATIO (10-20); Calcium,Total 8.9 mg/dL (8.5-10.1); Chloride 101 mmol/L (98-107); Cholesterol 86 mg/dL (200); Creatinine, Serum 2.29 mg/dL (0.70-1.30); EST Glomerular Filtration Rate 30 mL/min (>60); Est Glom Filt Rate - Afr Amer 36 mL/min (>60); Estimated Creatinine Clearance 29.69 ml/min; Glucose 88 mg/dL (74-106); High Density Lipoprotein 37 mg/dL; Potassium 4.9 mmol/L (3.5-5.1); Protein, Total 5.9 g/dL (6.4-8.2); Sodium Level 136 mmol/L (136-145); Triglycerides 53 mg/dL; Very Low Density Lipoprotein 11 mg/dL (5-40)
[2017-07-23 07:03] LABS: POSITIVE COUNT NO; POSITIVE DIFFERENTIAL NO; POSITIVE MORPHOLOGY NO
[2017-07-23] MEDS: 0.9% Normal Saline 1,000 ML 100 ML IV ×2 (09:54→21:47)
[2017-07-23] MEDS: Aspirin E.C. 81 MG Tablet PO (09:54)
[2017-07-23] MEDS: Carvedilol 6.25 MG Tablet PO ×2 (09:55→21:41)
[2017-07-23] MEDS: Donepezil HCl 10 MG Tablet PO (09:55)
[2017-07-23] MEDS: DULoxetine Hcl 60 MG Capsule PO (09:55)
[2017-07-23] MEDS: Memantine Hydrochloride 10 MG Tablet PO ×2 (09:55→21:41)
[2017-07-23] MEDS: Pantoprazole Sodium 40 MG Tablet PO (09:56)
[2017-07-23] MEDS: amLODIPine 10 MG Tablet PO (09:56)
--- NOTE | 2017-07-23 10:27 | CASEMGMT ---
Face to Face with patient for initial transition planning/care coordination assessment. RN BRYSON introduced self and role at [facility], pt voices understanding and consents to assessment at this time. Pt sitting up in bed in no distress at this time. Pt A/O x4 at this time and answers all questions appropriately at this time. Care providers, pharmacy, and demographics verified. See attached link. Pt voices no further concerns/needs at this time. Advised pt to ask for CM if any further questions/concerns/needs arise, voices understanding. CM to follow for any further discharge planning/needs. [place]
--- NOTE | 2017-07-23 12:05 | PCM.PN.HOSP ---
Vitals/I&O's: Vital Signs Temp Pulse Resp BP Pulse Ox 98.1 F 81 18 97/58 L 98 07/23/17 09:37 07/23/17 09:37 07/23/17 09:37 07/23/17 09:37 07/23/17 09:37 Oxygen Delivery Method Room Air Weight: 87.4 kg Body Mass Index (BMI) 26.9 Intake and Output for Last 24 Hours 07/21/17 07/22/17 07/23/17 23:59 23:59 23:59 Intake Total 640 / 640 Output Total 125 / 125 Balance 515 / 515 Laboratory Results 07/22/17 22:24: Troponin I 1.20 H* 07/22/17 23:59: PT 14.7, INR 1.2, APTT 34.2 07/23/17 02:27: Troponin I 1.32 H* 07/23/17 06:27: WBC 9.6, RBC 3.96 L, Hgb 10.0 L, Hct 31.9 L, MCV 80.6, MCH 25.3 L, MCHC 31.3 L, RDW 16.2 H, RDW Differential 46.9 H, Plt Count 350, MPV 8.9, Immature Gran % (Auto) 0.100, Neut % (Auto) 71.0 H, Lymph % (Auto) 20.6, [place] % (Auto) 7.9, Eos % (Auto) 0.2, Baso % (Auto) 0.2, Absolute Neuts (auto) 6.8, Absolute Lymphs (auto) 1.97, Total Counted Not Reportable 07/23/17 06:27: Sodium 136, Potassium 4.9, Chloride 101, Carbon Dioxide 22.0, Anion Gap 13, BUN 97 H, Creatinine 2.29 H, Estim Creat Clear Calc 29.69, Est GFR (MDRD) Af Amer 36 L, Est GFR (MDRD) Non-Af 30 L, BUN/Creatinine Ratio 42.4 H, Glucose 88, Calcium 8.9, Total Bilirubin 0.70, AST 36, ALT 45, Alkaline Phosphatase 120 H, Total Protein 5.9 L, Albumin 2.9 L, Globulin 3.0, Albumin/Globulin Ratio 1.0, Triglycerides 53, Cholesterol 86, LDL Cholesterol 38, VLDL Cholesterol 11, HDL Cholesterol 37 L 07/23/17 06:27: APTT 130.5 H* 07/23/17 08:25: Troponin I 1.31 H* Current Medications Al Hydroxide/Mg Hydroxide (Mylanta Ii) 30 ml PO Q6H PRN PRN PRN Reason: Gastric burning Albuterol Sulfate (Ventolin Aerosols) 2.5 mg INHALATION Q2H PRN PRN PRN Reason: dyspnea, wheezing Albuterol/Ipratropium (Duoneb) 3 ml INHALATION Q6HWA.RT [facility] Last Admin: 07/23/17 07:01 Dose: 3 ml Amlodipine Besylate (Norvasc) 10 mg PO DAILY [facility] Last Admin: 07/23/17 09:56 Dose: 10 mg Aspirin (Ecotrin) 81 mg PO DAILY@0800 [facility] Last Admin: 07/23/17 09:54 Dose: 81 mg Atorvastatin Calcium (Lipitor) 5 mg PO QHS [facility] Last Admin: 07/22/17 23:40 Dose: 5 mg Carvedilol (Coreg) 6.25 mg PO BID [facility] Last Admin: 07/23/17 09:55 Dose: 6.25 mg Donepezil HCl (Aricept) 10 mg PO DAILY [facility] Last Admin: 07/23/17 09:55 Dose: 10 mg Duloxetine HCl (Cymbalta) 60 mg PO DAILY [facility] Last Admin: 07/23/17 09:55 Dose: 60 mg Heparin Sodium (Porcine) (Heparin Na) 0 unit IV UD PRN PRN Reason: Protocol Hydralazine HCl (Apresoline) 10 mg IV Q4H PRN PRN PRN Reason: SBP > 160 Sodium Chloride () 1,000 mls @ 100 mls/hr IV .Q10H [facility] Last Admin: 07/23/17 09:54 Dose: 100 mls/hr Heparin Sodium/Dextrose () 25,000 units in 250 mls @ 12 mls/hr IV .[id number] [facility]; As Directed PRN Reason: Protocol Last Admin: 07/23/17 00:39 Dose: 12 mls/hr Magnesium Hydroxide (Milk Of Magnesia) 30 ml PO DAILY PRN PRN Reason: Constipation Memantine (Namenda) 10 mg PO BID [facility] Last Admin: 07/23/17 09:55 Dose: 10 mg Nitroglycerin (Nitrostat) 0.4 mg SUBLINGUAL Q5M PRN PRN Reason: CHEST PAIN Nutritional Formula (Lactose Free) (Ensure Enlive) 120 ml PO 4X/DAY [facility] Last Admin: 07/23/17 10:06 Dose: 120 ml Ondansetron HCl (Zofran) 4 mg IV Q8H PRN PRN PRN Reason: NAUSEA Oxycodone HCl (Oxyir) 10 mg PO Q4H PRN PRN PRN Reason: SEVERE PAIN (6-10/10) Last Admin: 07/23/17 03:39 Dose: 10 mg Oxycodone HCl (Oxycontin) 20 mg PO BID [facility] Last Admin: 07/23/17 10:02 Dose: 20 mg Pantoprazole Sodium (Protonix) 40 mg PO DAILY [facility] Last Admin: 07/23/17 09:56 Dose: 40 mg Promethazine HCl (Phenergan (Ll)) 12.5 mg IV Q6H PRN PRN PRN Reason: NAUSEA/VOMITING Sodium Chloride () 5 - 30 ml IV UD PRN PRN Reason: SALINE FLUSH
[2017-07-23] MEDS: 0.9% NaCl Peripheral Flush Adult/Peds IV (12:08)
[2017-07-23 13:36] LABS: Partial Thromboplast Time 40.1 Seconds (24.1-36.2)
--- NOTE | 2017-07-23 14:03 | CASEMGMT ---
Therapy told SW that patient and his would like patient to go to TCU for rehab. SW met with patient and his . She confirmed they would like TCU. BARBARA asked if she has a 2nd choice as TCU may be full. She said she does not and will have to think about it. BARBARA called TCU and left a message for Kavita with patient's name. Valentina BALBUENA MSW
--- NOTE | 2017-07-23 15:05 | PCM.CONS.C ---
Problem List (1) Elevated troponin I level Status: Acute Reason for Consult Date of Consultation: 07/23/17 History of Present Illness: The patient is a 76 year old M with past medical history significant for dementia, hypertension, pulmonary embolism, anemia. He was brought to the emergency room with complaints of increasing confusion. This was a change from his baseline. Noted to be short of breath with exertion. Patient usually used to walk with a cane. No chest pain. Per patient himself, he had been having pain in his legs. No orthopnea or PND. Positive ankle swelling recently. Patient was noted to have elevated troponins in the emergency room. He was also noted to have acute kidney injury with elevated creatinine. He had an echocardiogram done this morning which showed ejection fraction of 10-15% with global hypokinesis. No history of heart failure before. No history of coronary artery disease. [] Past Medical History Allergies/Adverse Reactions: Allergies hydrocodone [From Vicodin] Adverse Reaction (Verified 07/22/17 17:19) Itching lorazepam [From Ativan] Adverse Reaction (Verified 07/22/17 17:19) Other MAKES ME CRAZY morphine Adverse Reaction (Verified 07/22/17 17:19) Other MAKES HIM CRAZY PER Home Medications: Ambulatory Orders Medication Instructions Recorded Amlodipine Besylate [Norvasc] 10 mg PO DAILY 07/11/16 Duloxetine Hcl [Cymbalta] 60 mg PO DAILY 07/11/16 Hydrochlorothiazide [Hctz] 25 mg PO DAILY 07/11/16 Lisinopril [Prinivil] 5 mg PO DAILY 07/11/16 Omeprazole [Prilosec] 40 mg PO DAILY 09/20/16 Simvastatin [Zocor] 10 mg PO QHS 09/20/16 Acetaminophen [Tylenol] 1,000 mg PO Q8 30 Days tablet 09/30/16 DiphenhydrAMINE [Benadryl] 25 mg PO QHS PRN PRN 07/22/17 Memantine HCl/Donepezil HCl 1 each PO QHS 07/22/17 [Namzaric 28 mg-10 mg Capsule] Multivit-Min/FA/Lycopen/Lutein 1 each PO DAILY 07/22/17 [Centrum Silver Tablet] Oxycodone HCl/Acetaminophen 1 tablet PO TID 07/22/17 [Percocet 10-325 mg Tablet] Oxycodone Myristate [Xtampza ER] 18 mg PO BID 07/22/17 Past Medical History (Chronic Problems): Chronic Problems Dementia (Chronic) Chronic obstructive pulmonary disease (Chronic) Former tobacco use (Chronic) Subacute delirium (Chronic) Hypokalemia (Chronic) Constipation (Chronic) GERD (gastroesophageal reflux disease) (Chronic) Iron deficiency anemia (Chronic) Depression (Chronic) Pulmonary embolism (Chronic) History of pulmonary embolism (Chronic) Status post total right knee replacement (Chronic) Hyperlipidemia (Chronic) Hypertension (Chronic) Chronic lower back pain (Chronic) Surgical History: appendectomy, cholecystectomy, herniorrhaphy, total hip arthroplasty - Right, 2011., total knee arthroplasty - 2011, then 09/27/2016., tonsillectomy, - - Laminectomy 1974, Spinal fusion L4, L5, S1 1979, Right knee antibiotic spacer 07/12/2016 Dr. Perea. Psychiatric History: Depression - *Family History Maternal History Items: Dementia Paternal History Items: Cancer - Father age 47 from liver CA. Lives: Spouse/ Significant Other Smoking Status: Former smoker - Quit ~2 years prior. Tobacco Use: Non-smoker Alcohol: Rare Drugs: None Review of Systems - Review of Systems General: Reports: Fatigue, Weakness, Anorexia HEENT: Denies: Head Aches Cardiovascular: Reports: Shortness of Breath with Exertion, Peripheral Edema. Denies: Chest Discomfort, Orthopnea, PND Respiratory: Denies: Cough Gastrointestinal: Denies: Abdominal Discomfort, Jaundice, Nausea Muscoloskeletal: Reports: Myalgias Neurological: Reports: Confusion, Weakness Endocrine: Denies: Heat Intolerance, Cold Intolerance Hematologic/ Lymphatic: Reports: Anemia, Easy Brusing Subjectve: Comfortable. No apparent distress Objective: Vital Signs Temp Pulse Resp BP Pulse Ox 98.1 F 80 18 97/58 L 98 07/23/17 09:37 07/23/17 12:05 07/23/17 09:37 07/23/17 09:37 07/23/17 09:37 Oxygen Delivery Method Room Air Weight: 87.4 kg Body Mass Index (BMI) 26.9 Intake and Output for Last 24 Hours 07/21/17 07/22/17 07/23/17 23:59 23:59 23:59 Intake Total 1505 / 1505 Output Total 275 / 275 Balance 1230 / 1230 General: No Acute Distress HEENT: Atraumatic Oral: Moist Mucosa Neck: Supple Lungs: Diminished Demond Bases Cardiovascular: Regular Rhythm, Normal S1, Normal S2 Vascular: No Carotid Bruits Abdomen: Bowel Sounds Present, Soft Extremities: Bilateral Edema +2 Neurological: - - Alert oriented ?3 07/22/17 22:24: Troponin I 1.20 H* 07/22/17 23:59: PT 14.7, INR 1.2, APTT 34.2 07/23/17 02:27: Troponin I 1.32 H* 07/23/17 06:27: WBC 9.6, RBC 3.96 L, Hgb 10.0 L, Hct 31.9 L, MCV 80.6, MCH 25.3 L, MCHC 31.3 L, RDW 16.2 H, RDW Differential 46.9 H, Plt Count 350, MPV 8.9, Immature Gran % (Auto) 0.100, Neut % (Auto) 71.0 H, Lymph % (Auto) 20.6, [place] % (Auto) 7.9, Eos % (Auto) 0.2, Baso % (Auto) 0.2, Absolute Neuts (auto) 6.8, Total Counted Not Reportable 07/23/17 06:27: Sodium 136, Potassium 4.9, Chloride 101, Carbon Dioxide 22.0, Anion Gap 13, BUN 97 H, Creatinine 2.29 H, Est GFR (MDRD) Af Amer 36 L, Est GFR (MDRD) Non-Af 30 L, BUN/Creatinine Ratio 42.4 H, Glucose 88, Calcium 8.9, Total Bilirubin 0.70, Triglycerides 53, Cholesterol 86, LDL Cholesterol 38, VLDL Cholesterol 11, HDL Cholesterol 37 L 07/23/17 06:27: APTT 130.5 H* 07/23/17 08:25: Troponin I 1.31 H* 07/23/17 13:00: APTT 40.1 H Rhythm: Sinus rhythm. PVC is noted EKG: Sinus rhythm. Frequent PVCs. ST changes suggestive of lateral ischemia ECHO: Ejection fraction 10-15%. Global hypokinesis. Moderately dilated right ventricle and moderate hypokinesis of the right ventricle. Stress Test: Cardiac Cath: PCI: CT Surgery: Holter monitor: EPS: PPM: CXR: Chest CT Scan: Assessment/Plan 1. Elevated troponin. Likely secondary to acute renal failure. No significant upward or downward trend noted. Doubt acute coronary event 2. Severe LV systolic dysfunction. Consider chronic systolic congestive heart failure. However difficult to ascertain for sure if this is truly chronic, acute on chronic or acute. No JANINE inhibitors or ARB's in view of acute renal failure. Stop amlodipine. Start on low-dose beta blockers. No chest congestion on chest x-ray Likely nonischemic cardiomyopathy in view of the fact that there is RV dilatation and RV systolic dysfunction as well. However consider stress test at a later stage to rule out any underlying ischemia 3. Acute kidney injury. Consider nephrology consult 4. Underlying dementia 5. History of hypertension
--- NOTE | 2017-07-23 17:40 | PCM.PN.HOSP ---
Patient Problems: Active and Suspected Problems Elevated troponin I level (Acute) Subjective: Cc: Troponin elevation This is a 76 y/o M with past medical history of who presents to the [facility] ED on 07/22/17 with decreased oral intake, dyspnea with exertion, decreased energy malaise. The patient was noted to have worsening renal dysfunction and elevated troponin. He reports no chest pain shortness of breath or palpitations. Vitals/I&O's: Vital Signs Temp Pulse Resp BP Pulse Ox 97.5 F L 74 18 102/67 96 07/23/17 15:30 07/23/17 15:30 07/23/17 15:30 07/23/17 15:30 07/23/17 15:30 Oxygen Delivery Method Room Air Weight: 87.4 kg Body Mass Index (BMI) 26.9 Intake and Output for Last 24 Hours 07/21/17 07/22/17 07/23/17 23:59 23:59 23:59 Intake Total 1505 / 1505 Output Total 275 / 275 Balance 1230 / 1230 General: Alert, Oriented x3 HEENT: Atraumatic Oral: Moist Mucosa Neck: Supple, No JVD Lungs: Clear to auscultation Cardiovascular: Regular rate, Normal S1, Normal S2 Abdomen: Bowel Sounds Present, Soft, Non Tender, Non-Distended Extremities: No clubbing, No edema Neurological: Cranial nerves II-XII grossly intact, Deep Tendon Reflexes 2+/4 and Symmetrical, Neuro grossly intact, Motor Exam 5/5 strength throughout Laboratory Results 07/22/17 22:24: Troponin I 1.20 H* 07/22/17 23:59: PT 14.7, INR 1.2, APTT 34.2 07/23/17 02:27: Troponin I 1.32 H* 07/23/17 06:27: WBC 9.6, RBC 3.96 L, Hgb 10.0 L, Hct 31.9 L, MCV 80.6, MCH 25.3 L, MCHC 31.3 L, RDW 16.2 H, RDW Differential 46.9 H, Plt Count 350, MPV 8.9, Immature Gran % (Auto) 0.100, Neut % (Auto) 71.0 H, Lymph % (Auto) 20.6, [place] % (Auto) 7.9, Eos % (Auto) 0.2, Baso % (Auto) 0.2, Absolute Neuts (auto) 6.8, Absolute Lymphs (auto) 1.97, Total Counted Not Reportable 07/23/17 06:27: Sodium 136, Potassium 4.9, Chloride 101, Carbon Dioxide 22.0, Anion Gap 13, BUN 97 H, Creatinine 2.29 H, Estim Creat Clear Calc 29.69, Est GFR (MDRD) Af Amer 36 L, Est GFR (MDRD) Non-Af 30 L, BUN/Creatinine Ratio 42.4 H, Glucose 88, Calcium 8.9, Total Bilirubin 0.70, AST 36, ALT 45, Alkaline Phosphatase 120 H, Total Protein 5.9 L, Albumin 2.9 L, Globulin 3.0, Albumin/Globulin Ratio 1.0, Triglycerides 53, Cholesterol 86, LDL Cholesterol 38, VLDL Cholesterol 11, HDL Cholesterol 37 L 07/23/17 06:27: APTT 130.5 H* 07/23/17 08:25: Troponin I 1.31 H* 07/23/17 13:00: APTT 40.1 H Current Medications Al Hydroxide/Mg Hydroxide (Mylanta Ii) 30 ml PO Q6H PRN PRN PRN Reason: Gastric burning Albuterol Sulfate (Ventolin Aerosols) 2.5 mg INHALATION Q2H PRN PRN PRN Reason: dyspnea, wheezing Albuterol/Ipratropium (Duoneb) 3 ml INHALATION Q6HWA.RT [facility] Last Admin: 07/23/17 13:15 Dose: Not Given Aspirin (Ecotrin) 81 mg PO DAILY@0800 [facility] Last Admin: 07/23/17 09:54 Dose: 81 mg Atorvastatin Calcium (Lipitor) 5 mg PO QHS [facility] Last Admin: 07/22/17 23:40 Dose: 5 mg Carvedilol (Coreg) 6.25 mg PO BID [facility] Last Admin: 07/23/17 09:55 Dose: 6.25 mg Donepezil HCl (Aricept) 10 mg PO DAILY [facility] Last Admin: 07/23/17 09:55 Dose: 10 mg Duloxetine HCl (Cymbalta) 60 mg PO DAILY [facility] Last Admin: 07/23/17 09:55 Dose: 60 mg Heparin Sodium (Porcine) (Heparin Na) 0 unit IV UD PRN PRN Reason: Protocol Last Admin: 07/23/17 13:56 Dose: 3,000 units Hydralazine HCl (Apresoline) 10 mg IV Q4H PRN PRN PRN Reason: SBP > 160 Sodium Chloride () 1,000 mls @ 100 mls/hr IV .Q10H [facility] Last Admin: 07/23/17 09:54 Dose: 100 mls/hr Heparin Sodium/Dextrose () 25,000 units in 250 mls @ 12 mls/hr IV .[id number] [facility]; As Directed PRN Reason: Protocol Last Admin: 07/23/17 00:39 Dose: 12 mls/hr Magnesium Hydroxide (Milk Of Magnesia) 30 ml PO DAILY PRN PRN Reason: Constipation Memantine (Namenda) 10 mg PO BID [facility] Last Admin: 07/23/17 09:55 Dose: 10 mg Nitroglycerin (Nitrostat) 0.4 mg SUBLINGUAL Q5M PRN PRN Reason: CHEST PAIN Nutritional Formula (Lactose Free) (Ensure Enlive) 120 ml PO 4X/DAY [facility] Last Admin: 07/23/17 17:10 Dose: Not Given Ondansetron HCl (Zofran) 4 mg IV Q8H PRN PRN PRN Reason: NAUSEA Oxycodone HCl (Oxyir) 10 mg PO Q4H PRN PRN PRN Reason: SEVERE PAIN (6-10/10) Last Admin: 07/23/17 15:37 Dose: 10 mg Oxycodone HCl (Oxycontin) 20 mg PO BID [facility] Last Admin: 07/23/17 10:02 Dose: 20 mg Pantoprazole Sodium (Protonix) 40 mg PO DAILY [facility] Last Admin: 07/23/17 09:56 Dose: 40 mg Promethazine HCl (Phenergan (Ll)) 12.5 mg IV Q6H PRN PRN PRN Reason: NAUSEA/VOMITING Sodium Chloride () 5 - 30 ml IV UD PRN PRN Reason: SALINE FLUSH Last Admin: 07/23/17 12:08 Dose: 10 ml Assessment/Plan Active and Suspected Problems Elevated troponin I level (Acute) 1. Troponin elevation consistent with NSTEMI; he was started on heparin drip and cardiology was consulted. 2. Acute kidney injury; this is most likely. I will continue on gentle IV hydration, we will avoid potential nephrotoxic medications. 3. history of diastolic heart failure , he is clinically compensated we will monitor him closely. 4. Dementia without behavioral disturbance; supportive measures. 5. 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 6. Dyslipidemia; he is on a statin. 7. Prophylaxis with subcutaneous heparin. Code Visit Inpatient E&M: 75477 Subs Hosp L2
--- NOTE | 2017-07-23 17:47 | PN_ITS ---
Patient Problems: Active and Suspected Problems Elevated troponin I level (Acute) Subjective: Cc: Troponin elevation This is a 76 y/o M with past medical history of who presents to the [facility] ED on with decreased oral intake, dyspnea with exertion, decreased energy malaise. The patient was noted to have worsening renal dysfunction and elevated troponin. He reports no chest pain shortness of breath or palpitations. Vitals/I&O's: Vital Signs Temp Pulse Resp BP Pulse Ox 97.5 F L 74 18 102/67 96 07/23/17 15:30 07/23/17 15:30 07/23/17 15:30 07/23/17 15:30 07/23/17 15:30 Oxygen Delivery Method Room Air Weight: 87.4 kg Body Mass Index (BMI) 26.9 Intake and Output for Last 24 Hours 07/21/17 07/22/17 07/23/17 23:59 23:59 23:59 Intake Total 1505 / 1505 Output Total 275 / 275 Balance 1230 / 1230 General: Alert, Oriented x3 HEENT: Atraumatic Oral: Moist Mucosa Neck: Supple, No JVD Lungs: Clear to auscultation Cardiovascular: Regular rate, Normal S1, Normal S2 Abdomen: Bowel Sounds Present, Soft, Non Tender, Non-Distended Extremities: No clubbing, No edema Neurological: Cranial nerves II-XII grossly intact, Deep Tendon Reflexes 2+/4 and Symmetrical, Neuro grossly intact, Motor Exam 5/5 strength throughout Laboratory Results 07/22/17 22:24: Troponin I 1.20 H* 07/22/17 23:59: PT 14.7, INR 1.2, APTT 34.2 07/23/17 02:27: Troponin I 1.32 H* 07/23/17 06:27: WBC 9.6, RBC 3.96 L, Hgb 10.0 L, Hct 31.9 L, MCV 80.6, MCH 25.3 L, MCHC 31.3 L, RDW 16.2 H, RDW Differential 46.9 H, Plt Count 350, MPV 8.9, Immature Gran % (Auto) 0.100, Neut % (Auto) 71.0 H, Lymph % (Auto) 20.6, [place] % (Auto) 7.9, Eos % (Auto) 0.2, Baso % (Auto) 0.2, Absolute Neuts (auto) 6.8, Absolute Lymphs (auto) 1.97, Total Counted Not Reportable 07/23/17 06:27: Sodium 136, Potassium 4.9, Chloride 101, Carbon Dioxide 22.0, Anion Gap 13, BUN 97 H, Creatinine 2.29 H, Estim Creat Clear Calc 29.69, Est GFR (MDRD) Af Amer 36 L, Est GFR (MDRD) Non-Af 30 L, BUN/Creatinine Ratio 42.4 H , Glucose 88, Calcium 8.9, Total Bilirubin 0.70, AST 36, ALT 45, Alkaline Phosphatase 120 H, Total Protein 5.9 L, Albumin 2.9 L, Globulin 3.0, Albumin/ Globulin Ratio 1.0, Triglycerides 53, Cholesterol 86, LDL Cholesterol 38, VLDL Cholesterol 11, HDL Cholesterol 37 L 07/23/17 06:27: APTT 130.5 H* 07/23/17 08:25: Troponin I 1.31 H* 07/23/17 13:00: APTT 40.1 H Current Medications Al Hydroxide/Mg Hydroxide (Mylanta Ii) 30 ml PO Q6H PRN PRN PRN Reason: Gastric burning Albuterol Sulfate (Ventolin Aerosols) 2.5 mg INHALATION Q2H PRN PRN PRN Reason: dyspnea, wheezing Albuterol/Ipratropium (Duoneb) 3 ml INHALATION Q6HWA.RT [facility] Last Admin: 07/23/17 13:15 Dose: Not Given Aspirin (Ecotrin) 81 mg PO DAILY@0800 [facility] Last Admin: 07/23/17 09:54 Dose: 81 mg Atorvastatin Calcium (Lipitor) 5 mg PO QHS [facility] Last Admin: 07/22/17 23:40 Dose: 5 mg Carvedilol (Coreg) 6.25 mg PO BID [facility] Last Admin: 07/23/17 09:55 Dose: 6.25 mg Donepezil HCl (Aricept) 10 mg PO DAILY [facility] Last Admin: 07/23/17 09:55 Dose: 10 mg Duloxetine HCl (Cymbalta) 60 mg PO DAILY [facility] Last Admin: 07/23/17 09:55 Dose: 60 mg Heparin Sodium (Porcine) (Heparin Na) 0 unit IV UD PRN PRN Reason: Protocol Last Admin: 07/23/17 13:56 Dose: 3,000 units Hydralazine HCl (Apresoline) 10 mg IV Q4H PRN PRN PRN Reason: SBP > 160 Sodium Chloride () 1,000 mls @ 100 mls/hr IV .Q10H [facility] Last Admin: 07/23/17 09:54 Dose: 100 mls/hr Heparin Sodium/Dextrose () 25,000 units in 250 mls @ 12 mls/hr IV .[id number] [facility] ; As Directed PRN Reason: Protocol Last Admin: 07/23/17 00:39 Dose: 12 mls/hr Magnesium Hydroxide (Milk Of Magnesia) 30 ml PO DAILY PRN PRN Reason: Constipation Memantine (Namenda) 10 mg PO BID [facility] Last Admin: 07/23/17 09:55 Dose: 10 mg Nitroglycerin (Nitrostat) 0.4 mg SUBLINGUAL Q5M PRN PRN Reason: CHEST PAIN Nutritional Formula (Lactose Free) (Ensure Enlive) 120 ml PO 4X/DAY [facility] Last Admin: 07/23/17 17:10 Dose: Not Given Ondansetron HCl (Zofran) 4 mg IV Q8H PRN PRN PRN Reason: NAUSEA Oxycodone HCl (Oxyir) 10 mg PO Q4H PRN PRN PRN Reason: SEVERE PAIN (6-10/10) Last Admin: 07/23/17 15:37 Dose: 10 mg Oxycodone HCl (Oxycontin) 20 mg PO BID [facility] Last Admin: 07/23/17 10:02 Dose: 20 mg Pantoprazole Sodium (Protonix) 40 mg PO DAILY [facility] Last Admin: 07/23/17 09:56 Dose: 40 mg Promethazine HCl (Phenergan (Ll)) 12.5 mg IV Q6H PRN PRN PRN Reason: NAUSEA/VOMITING Sodium Chloride () 5 - 30 ml IV UD PRN PRN Reason: SALINE FLUSH Last Admin: 07/23/17 12:08 Dose: 10 ml Assessment/Plan Active and Suspected Problems Elevated troponin I level (Acute) 1. Troponin elevation consistent with NSTEMI; he was started on heparin drip and cardiology was consulted. 2. Acute kidney injury; this is most likely. I will continue on gentle IV hydration, we will avoid potential nephrotoxic medications. 3. history of diastolic heart failure , he is clinically compensated we will monitor him closely. 4. Dementia without behavioral disturbance; supportive measures. 5. 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 6. Dyslipidemia; he is on a statin. 7. Prophylaxis with subcutaneous heparin. Code Visit Inpatient E&M: 77136 Subs Hosp L2
[2017-07-23 21:02] LABS: Partial Thromboplast Time 170.8 Seconds (24.1-36.2)
[2017-07-23] MEDS: Atorvastatin Calcium 10 MG Tablet 5 MG PO (21:41)
[2017-07-24] VITALS (15 sets, daily range): BP systolic 91–108; BP diastolic 45–64; PULSE 58–75; RESP 12–26; TEMP 35.9–36.6; O2SAT 92–95
[2017-07-24 01:59] LABS: Partial Thromboplast Time 55.8 Seconds (24.1-36.2)
[2017-07-24] MEDS: oxyCODONE 5 MG Tablet 10 MG PO ×4 (03:48→19:20)
[2017-07-24] MEDS: HEPARIN/D5w 25,000 UNITS 25,000 UNITS/250 ML IV.SOLN. 8 UNITS IV (04:59)
[2017-07-24] MEDS: Ipratropium/Albuterol Sulfate 3 ML AMPUL.NEB INHALATION ×3 (07:12→19:00)
[2017-07-24] MEDS: Aspirin E.C. 81 MG Tablet PO (07:46)
[2017-07-24 08:04] LABS: Partial Thromboplast Time 43.8 Seconds (24.1-36.2)
[2017-07-24] MEDS: 0.9% Normal Saline 1,000 ML 100 ML IV ×2 (08:47→18:29)
[2017-07-24] MEDS: Donepezil HCl 10 MG Tablet PO (10:07)
[2017-07-24] MEDS: Carvedilol 6.25 MG Tablet PO (10:09)
[2017-07-24] MEDS: DULoxetine Hcl 60 MG Capsule PO (10:10)
[2017-07-24] MEDS: Memantine Hydrochloride 10 MG Tablet PO (10:11)
[2017-07-24] MEDS: Pantoprazole Sodium 40 MG Tablet PO (11:30)
[2017-07-24 13:22] LABS: Anion Gap 10 (5-15); BUN 108 mg/dL (7-18); BUN/Creat Ratio 48.4 RATIO (10-20); Calcium,Total 8.8 mg/dL (8.5-10.1); Chloride 105 mmol/L (98-107); Creatinine, Serum 2.23 mg/dL (0.70-1.30); EST Glomerular Filtration Rate 31 mL/min (>60); Est Glom Filt Rate - Afr Amer 37 mL/min (>60); Estimated Creatinine Clearance 30.48 ml/min; Glucose 108 mg/dL (74-106); Sodium Level 138 mmol/L (136-145)
--- NOTE | 2017-07-24 13:45 | US_ITS ---
STUDY: RENAL ULTRASOUND - COMPLETE REASON FOR EXAM: Male, 76 years old. Acute renal failure TECHNIQUE: Ultrasound evaluation of the kidneys was performed with real-time and static whaley-scale imaging. COMPARISON: None. FINDINGS: RIGHT KIDNEY: Normal location of the right kidney, which is normal in size. The right kidney measures 9.8 cm. There is a normal cortex of the right kidney. The renal cortex measures 1.3 cm. There is no right renal mass or cyst. There are no right renal calculi. There is no right hydronephrosis. DISTAL RIGHT URETER: There is non-visualization of the distal right ureter. There is no demonstrated right ureterovesical junction calculus. There is a non- visualized right ureteral jet. LEFT KIDNEY: Normal location of the left kidney, which is normal in size. The left kidney measures 9.3 cm. There is a normal cortex of the left kidney. The renal cortex measures 1.3 cm. There is a simple 2 cm cortical cyst. There are no left renal calculi. There is no left hydronephrosis. DISTAL LEFT URETER: There is non-visualization of the distal left ureter. There is no demonstrated left ureterovesical junction calculus. There is a non-visualized left ureteral jet. BLADDER: Decompressed with a Camara catheter.. US/Kidney and Bladder IMPRESSION: Simple left renal cortical cyst Electronically Signed: Leno Pinedo MD at 23:56 EST , Service support ,
[2017-07-24 15:06] LABS: Partial Thromboplast Time 69.9 Seconds (24.1-36.2)
[2017-07-24 15:32] LABS: Bacteria 0 SEEN /hpf (None Seen); Mucous, Urine 0 SEEN /hpf (<or=2+); Red Blood Cells-Urine 0 SEEN /hpf (0-5); White Blood Cells 0 SEEN /hpf (0-5)
[2017-07-24 15:36] LABS: Color, Urine Yellow (Yellow); Glucose, Dipstick Normal (Normal); Ketone-Dipstick Negative (Negative); Leukocyte Esterase-Dipstick Negative /ul (Negative); Nitrite-Dipstick Negative (Negative); Occult Blood-Urine Negative /ul (Negative); Protein-Dipstick 15 mg/dl (Negative); Urine Bilirubin Dipstick Negative (Negative); Urine Clarity Sl. Cloudy (Clear); Urine Urobilinogen 1 mg/dl (Normal)
--- NOTE | 2017-07-24 16:03 | PCM.PN.HOSP ---
Patient Problems: Active and Suspected Problems Elevated troponin I level (Acute) Subjective: c: Troponin elevation This is a 76 y/o M with past medical history of who presents to the [facility] ED on 07/22/17 with decreased oral intake, dyspnea with exertion, decreased energy malaise. The patient much more somnolent today and has less urine output. Vitals/I&O's: Vital Signs Temp Pulse Resp BP Pulse Ox 97.8 F 66 16 91/58 L 94 07/24/17 15:22 07/24/17 15:22 07/24/17 15:22 07/24/17 15:22 07/24/17 15:22 Oxygen Delivery Method Room Air Weight: 87.4 kg Body Mass Index (BMI) 26.9 Intake and Output for Last 24 Hours 07/22/17 07/23/17 07/24/17 23:59 23:59 23:59 Intake Total 2743 / 2743 1920 / 1920 Output Total 600 / 600 225 / 225 Balance 2143 / 2143 1695 / 1695 General: Alert, Oriented x3 HEENT: Atraumatic Neck: Supple, No JVD Lungs: Clear to auscultation Cardiovascular: Regular rate, Normal S1, Normal S2 Abdomen: Bowel Sounds Present, Soft, Non Tender Extremities: No edema Skin: No rashes Neurological: Cranial nerves II-XII grossly intact, Neuro grossly intact, Motor Exam 5/5 strength throughout Laboratory Results 07/23/17 19:40: APTT 170.8 H* 07/24/17 01:20: APTT 55.8 H 07/24/17 07:13: APTT 43.8 H 07/24/17 12:52: Sodium 138, Potassium 5.0, Chloride 105, Carbon Dioxide 23.0, Anion Gap 10, BUN 108 H*, Creatinine 2.23 H, Estim Creat Clear Calc 30.48, Est GFR (MDRD) Af Amer 37 L, Est GFR (MDRD) Non-Af 31 L, BUN/Creatinine Ratio 48.4 H, Glucose 108 H, Calcium 8.8 07/24/17 14:40: APTT 69.9 H 07/24/17 15:05: Urine Color Pending, Urine Clarity Pending, Urine pH Pending, Ur Specific Orange Pending, Urine Protein Pending, Urine Glucose (UA) Pending, Urine Ketones Pending, Urine Occult Blood Pending, Urine Nitrite Pending, Urine Bilirubin Pending, Urine Urobilinogen Pending, Ur Leukocyte Esterase Pending, Urine RBC Pending, Urine WBC Pending, Ur Squamous Epith Cells Pending, Urine Bacteria Pending, Urine Mucus Pending 07/24/17 15:05: Urine Creatinine Pending 07/24/17 15:05: U Random Total Protein Pending Current Medications Al Hydroxide/Mg Hydroxide (Mylanta Ii) 30 ml PO Q6H PRN PRN PRN Reason: Gastric burning Albuterol Sulfate (Ventolin Aerosols) 2.5 mg INHALATION Q2H PRN PRN PRN Reason: dyspnea, wheezing Albuterol/Ipratropium (Duoneb) 3 ml INHALATION Q6HWA.RT [facility] Last Admin: 07/24/17 13:33 Dose: 3 ml Aspirin (Ecotrin) 81 mg PO DAILY@0800 [facility] Last Admin: 07/24/17 07:46 Dose: 81 mg Atorvastatin Calcium (Lipitor) 5 mg PO QHS [facility] Last Admin: 07/23/17 21:41 Dose: 5 mg Carvedilol (Coreg) 6.25 mg PO BID [facility] Last Admin: 07/24/17 10:09 Dose: 6.25 mg Donepezil HCl (Aricept) 10 mg PO DAILY [facility] Last Admin: 07/24/17 10:07 Dose: 10 mg Duloxetine HCl (Cymbalta) 60 mg PO DAILY [facility] Last Admin: 07/24/17 10:10 Dose: 60 mg Heparin Sodium (Porcine) (Heparin Na) 0 unit IV UD PRN PRN Reason: Protocol Last Admin: 07/24/17 08:47 Dose: 1,000 units Hydralazine HCl (Apresoline) 10 mg IV Q4H PRN PRN PRN Reason: SBP > 160 Sodium Chloride () 1,000 mls @ 100 mls/hr IV .Q10H [facility] Last Admin: 07/24/17 08:47 Dose: 100 mls/hr Heparin Sodium/Dextrose () 25,000 units in 250 mls @ 12 mls/hr IV .[id number] [facility]; As Directed PRN Reason: Protocol Last Admin: 07/24/17 04:59 Dose: 8 mls/hr Magnesium Hydroxide (Milk Of Magnesia) 30 ml PO DAILY PRN PRN Reason: Constipation Memantine (Namenda) 10 mg PO BID [facility] Last Admin: 07/24/17 10:11 Dose: 10 mg Nitroglycerin (Nitrostat) 0.4 mg SUBLINGUAL Q5M PRN PRN Reason: CHEST PAIN Nutritional Formula (Lactose Free) (Ensure Enlive) 120 ml PO 4X/DAY [facility] Last Admin: 07/24/17 14:39 Dose: Not Given Ondansetron HCl (Zofran) 4 mg IV Q8H PRN PRN PRN Reason: NAUSEA Oxycodone HCl (Oxyir) 10 mg PO Q4H PRN PRN PRN Reason: SEVERE PAIN (6-10/10) Last Admin: 07/24/17 15:34 Dose: 10 mg Oxycodone HCl (Oxycontin) 20 mg PO BID [facility] Last Admin: 07/24/17 11:28 Dose: 20 mg Pantoprazole Sodium (Protonix) 40 mg PO DAILY [facility] Last Admin: 07/24/17 11:30 Dose: 40 mg Promethazine HCl (Phenergan (Ll)) 12.5 mg IV Q6H PRN PRN PRN Reason: NAUSEA/VOMITING Sodium Chloride () 5 - 30 ml IV UD PRN PRN Reason: SALINE FLUSH Last Admin: 07/23/17 12:08 Dose: 10 ml Assessment/Plan Active and Suspected Problems Elevated troponin I level (Acute) 1. Troponin elevation consistent with NSTEMI, likely type II :he was started on heparin drip and cardiology was consulted. No heart catheterization is recommended at this time we would undergo stress testing at some point during this hospitalization as per cardiology's recommendation. 2. Acute kidney injury; worsening renal parameters with oliguria, obtain renal ultrasound, with increased IV fluids rate, placing a Camara catheter for strict I's and O's, will consult wholesale diamond broker. 3. history of diastolic heart failure , he is clinically compensated we will monitor him closely. 4. Dementia without behavioral disturbance; supportive measures. 5. 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 6. Dyslipidemia; he is on a statin. 7. Prophylaxis with subcutaneous heparin. Code Visit Inpatient E&M: 82056 [facility] Hosp L3
--- NOTE | 2017-07-24 16:07 | PN_ITS ---
Patient Problems: Active and Suspected Problems Elevated troponin I level (Acute) Subjective: c: Troponin elevation This is a 76 y/o M with past medical history of who presents to the [facility] ED on with decreased oral intake, dyspnea with exertion, decreased energy malaise. The patient much more somnolent today and has less urine output. Vitals/I&O's: Vital Signs Temp Pulse Resp BP Pulse Ox 97.8 F 66 16 91/58 L 94 07/24/17 15:22 07/24/17 15:22 07/24/17 15:22 07/24/17 15:22 07/24/17 15:22 Oxygen Delivery Method Room Air Weight: 87.4 kg Body Mass Index (BMI) 26.9 Intake and Output for Last 24 Hours 07/22/17 07/23/17 07/24/17 23:59 23:59 23:59 Intake Total 2743 / 2743 1920 / 1920 Output Total 600 / 600 225 / 225 Balance 2143 / 2143 1695 / 1695 General: Alert, Oriented x3 HEENT: Atraumatic Neck: Supple, No JVD Lungs: Clear to auscultation Cardiovascular: Regular rate, Normal S1, Normal S2 Abdomen: Bowel Sounds Present, Soft, Non Tender Extremities: No edema Skin: No rashes Neurological: Cranial nerves II-XII grossly intact, Neuro grossly intact, Motor Exam 5/5 strength throughout Laboratory Results 07/23/17 19:40: APTT 170.8 H* 07/24/17 01:20: APTT 55.8 H 07/24/17 07:13: APTT 43.8 H 07/24/17 12:52: Sodium 138, Potassium 5.0, Chloride 105, Carbon Dioxide 23.0, Anion Gap 10, BUN 108 H*, Creatinine 2.23 H, Estim Creat Clear Calc 30.48, Est GFR (MDRD) Af Amer 37 L, Est GFR (MDRD) Non-Af 31 L, BUN/Creatinine Ratio 48.4 H , Glucose 108 H, Calcium 8.8 07/24/17 14:40: APTT 69.9 H 07/24/17 15:05: Urine Color Pending, Urine Clarity Pending, Urine pH Pending, Ur Specific [place] Pending, Urine Protein Pending, Urine Glucose (UA) Pending, Urine Ketones Pending, Urine Occult Blood Pending, Urine Nitrite Pending, Urine Bilirubin Pending, Urine Urobilinogen Pending, Ur Leukocyte Esterase Pending, Urine RBC Pending, Urine WBC Pending, Ur Squamous Epith Cells Pending, Urine Bacteria Pending, Urine Mucus Pending 07/24/17 15:05: Urine Creatinine Pending 07/24/17 15:05: U Random Total Protein Pending Current Medications Al Hydroxide/Mg Hydroxide (Mylanta Ii) 30 ml PO Q6H PRN PRN PRN Reason: Gastric burning Albuterol Sulfate (Ventolin Aerosols) 2.5 mg INHALATION Q2H PRN PRN PRN Reason: dyspnea, wheezing Albuterol/Ipratropium (Duoneb) 3 ml INHALATION Q6HWA.RT [facility] Last Admin: 07/24/17 13:33 Dose: 3 ml Aspirin (Ecotrin) 81 mg PO DAILY@0800 [facility] Last Admin: 07/24/17 07:46 Dose: 81 mg Atorvastatin Calcium (Lipitor) 5 mg PO QHS [facility] Last Admin: 07/23/17 21:41 Dose: 5 mg Carvedilol (Coreg) 6.25 mg PO BID [facility] Last Admin: 07/24/17 10:09 Dose: 6.25 mg Donepezil HCl (Aricept) 10 mg PO DAILY [facility] Last Admin: 07/24/17 10:07 Dose: 10 mg Duloxetine HCl (Cymbalta) 60 mg PO DAILY [facility] Last Admin: 07/24/17 10:10 Dose: 60 mg Heparin Sodium (Porcine) (Heparin Na) 0 unit IV UD PRN PRN Reason: Protocol Last Admin: 07/24/17 08:47 Dose: 1,000 units Hydralazine HCl (Apresoline) 10 mg IV Q4H PRN PRN PRN Reason: SBP > 160 Sodium Chloride () 1,000 mls @ 100 mls/hr IV .Q10H [facility] Last Admin: 07/24/17 08:47 Dose: 100 mls/hr Heparin Sodium/Dextrose () 25,000 units in 250 mls @ 12 mls/hr IV .[id number] [facility] ; As Directed PRN Reason: Protocol Last Admin: 07/24/17 04:59 Dose: 8 mls/hr Magnesium Hydroxide (Milk Of Magnesia) 30 ml PO DAILY PRN PRN Reason: Constipation Memantine (Namenda) 10 mg PO BID [facility] Last Admin: 07/24/17 10:11 Dose: 10 mg Nitroglycerin (Nitrostat) 0.4 mg SUBLINGUAL Q5M PRN PRN Reason: CHEST PAIN Nutritional Formula (Lactose Free) (Ensure Enlive) 120 ml PO 4X/DAY [facility] Last Admin: 07/24/17 14:39 Dose: Not Given Ondansetron HCl (Zofran) 4 mg IV Q8H PRN PRN PRN Reason: NAUSEA Oxycodone HCl (Oxyir) 10 mg PO Q4H PRN PRN PRN Reason: SEVERE PAIN (6-10/10) Last Admin: 07/24/17 15:34 Dose: 10 mg Oxycodone HCl (Oxycontin) 20 mg PO BID [facility] Last Admin: 07/24/17 11:28 Dose: 20 mg Pantoprazole Sodium (Protonix) 40 mg PO DAILY [facility] Last Admin: 07/24/17 11:30 Dose: 40 mg Promethazine HCl (Phenergan (Ll)) 12.5 mg IV Q6H PRN PRN PRN Reason: NAUSEA/VOMITING Sodium Chloride () 5 - 30 ml IV UD PRN PRN Reason: SALINE FLUSH Last Admin: 07/23/17 12:08 Dose: 10 ml Assessment/Plan Active and Suspected Problems Elevated troponin I level (Acute) 1. Troponin elevation consistent with NSTEMI, likely type II :he was started on heparin drip and cardiology was consulted. No heart catheterization is recommended at this time we would undergo stress testing at some point during this hospitalization as per cardiology's recommendation. 2. Acute kidney injury; worsening renal parameters with oliguria, obtain renal ultrasound, with increased IV fluids rate, placing a Camara catheter for strict I 's and O's, will consult wraparound facilitator. 3. history of diastolic heart failure , he is clinically compensated we will monitor him closely. 4. Dementia without behavioral disturbance; supportive measures. 5. 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 6. Dyslipidemia; he is on a statin. 7. Prophylaxis with subcutaneous heparin. Code Visit Inpatient E&M: [id number] [facility] [place] [facility] L3
[2017-07-24 16:09] LABS: Protein, Urine (Random) 21.9 mg/dL (<11.9)
[2017-07-24 16:41] LABS: Squamous Epithelial Cells - UA 0-5 SEEN /hpf (0-5)
--- NOTE | 2017-07-24 22:53 | PCM.PN.CARD ---
Subjectve: The patient was evaluated earlier. He appears to be confused. Objective: Vital Signs Temp Pulse Resp BP Pulse Ox 97.7 F L 65 18 108/53 L 95 07/24/17 20:16 07/24/17 20:16 07/24/17 20:16 07/24/17 20:16 07/24/17 20:16 Oxygen Delivery Method Room Air Weight: 192 lb 10.944 oz Body Mass Index (BMI) 26.9 Intake and Output for Last 24 Hours 07/22/17 07/23/17 07/24/17 23:59 23:59 23:59 Intake Total 2743 / 2743 2580 / 2580 Output Total 600 / 600 225 / 225 Balance 2143 / 2143 2355 / 2355 General: Disoriented Neck: Positive JVD Lungs: Diminished [place]ond Bases Cardiovascular: Regular Rhythm, Premature Ectopic Beats, Normal S1, Normal S2 Abdomen: Bowel Sounds Present, Soft, Non Tender Extremities: Mild RLE Edema, Mild LLE Edema 07/24/17 01:20: APTT 55.8 H 07/24/17 07:13: APTT 43.8 H 07/24/17 12:52: Sodium 138, Potassium 5.0, Chloride 105, Carbon Dioxide 23.0, Anion Gap 10, BUN 108 H*, Creatinine 2.23 H, Est GFR (MDRD) Af Amer 37 L, Est GFR (MDRD) Non-Af 31 L, BUN/Creatinine Ratio 48.4 H, Glucose 108 H, Calcium 8.8 07/24/17 14:40: APTT 69.9 H 07/24/17 15:05: Urine Color Yellow, Urine Clarity Sl. Cloudy, Urine pH 5.0, Ur Specific [place] 1.020, Urine Protein 15 H, Urine Glucose (UA) Normal, Urine Ketones Negative, Urine Occult Blood Negative, Urine Nitrite Negative, Urine Bilirubin Negative, Urine Urobilinogen 1 H, Ur Leukocyte Esterase Negative, Urine RBC 0 SEEN, Urine WBC 0 SEEN 07/24/17 20:45: APTT 68.0 H Rhythm: Sinus rhythm; PVC Assessment/Plan 1. Non-ST segment elevation [place] As per Dr. Salcido's previous cardiovascular consultation, it is unclear whether this is related to a type I event versus a type II event. According to his initial impression this may be a type II event being brought out by his underlying noncardiovascular conditions including his renal insufficiency. The patient has continued to be followed. He has undergone noninvasive studies. He does have the appearance of underlying cardiomyopathy. There is a concern whether this is ischemic or nonischemic mediated. Has been started on medical management. This is included aspirin, beta blockers, and lipid-lowering agents. He has not been on JANINE inhibitors or ARB secondary to his ongoing renal insufficiency. He may eventually need further evaluation with noninvasive or invasive studies. However this may depend upon his underlying mental status as well as his other medical issues including his renal insufficiency. 2. Cardiomyopathy As appear to have an underlying cardiomyopathy. His LV systolic function is markedly depressed according to his echocardiographic studies. Again the etiology is unclear as noted above. He will continue medical management. His medications will be adjusted based upon his ability to tolerate them from the standpoint of vital signs, renal function, etc. 3. Hypertension He apparently has a history of hypertension. He will continue medical therapy as deemed appropriate. 4. Renal insufficiency He does have the appearance of renal insufficiency. He will continue evaluation care per internal medicine and nephrology. However this does impact his cardiovascular status and medical therapy and ability to undergo additional cardiovascular studies including invasive studies. 5. Dementia He does have a history of dementia. He appears to have been noted to be confused. Again this impacts his ongoing evaluation and care. This note was generated with [employer] software. It may contain incorrect words, spelling, and punctuation that were not noted in checking the note before signing.
--- NOTE | 2017-07-24 22:58 | PN.CARD_ITS ---
Subjectve: The patient was evaluated earlier. He appears to be confused. Objective: Vital Signs Temp Pulse Resp BP Pulse Ox 97.7 F L 65 18 108/53 L 95 07/24/17 20:16 07/24/17 20:16 07/24/17 20:16 07/24/17 20:16 07/24/17 20:16 Oxygen Delivery Method Room Air Weight: 192 lb 10.944 oz Body Mass Index (BMI) 26.9 Intake and Output for Last 24 Hours 07/22/17 07/23/17 07/24/17 23:59 23:59 23:59 Intake Total 2743 / 2743 2580 / 2580 Output Total 600 / 600 225 / 225 Balance 2143 / 2143 2355 / 2355 General: Disoriented Neck: Positive JVD Lungs: Diminished [place]ond Bases Cardiovascular: Regular Rhythm, Premature Ectopic Beats, Normal S1, Normal S2 Abdomen: Bowel Sounds Present, Soft, Non Tender Extremities: Mild RLE Edema, Mild LLE Edema 07/24/17 01:20: APTT 55.8 H 07/24/17 07:13: APTT 43.8 H 07/24/17 12:52: Sodium 138, Potassium 5.0, Chloride 105, Carbon Dioxide 23.0, Anion Gap 10, BUN 108 H*, Creatinine 2.23 H, Est GFR (MDRD) Af Amer 37 L, Est GFR (MDRD) Non-Af 31 L, BUN/Creatinine Ratio 48.4 H, Glucose 108 H, Calcium 8.8 07/24/17 14:40: APTT 69.9 H 07/24/17 15:05: Urine Color Yellow, Urine Clarity Sl. Cloudy, Urine pH 5.0, Ur Specific [place] 1.020, Urine Protein 15 H, Urine Glucose (UA) Normal, Urine Ketones Negative, Urine Occult Blood Negative, Urine Nitrite Negative, Urine Bilirubin Negative, Urine Urobilinogen 1 H, Ur Leukocyte Esterase Negative, Urine RBC 0 SEEN, Urine WBC 0 SEEN 07/24/17 20:45: APTT 68.0 H Rhythm: Sinus rhythm; PVC Assessment/Plan 1. Non-ST segment elevation [place] As per Dr. Salcido's previous cardiovascular consultation, it is unclear whether this is related to a type I event versus a type II event. According to his initial impression this may be a type II event being brought out by his underlying noncardiovascular conditions including his renal insufficiency. The patient has continued to be followed. He has undergone noninvasive studies. He does have the appearance of underlying cardiomyopathy. There is a concern whether this is ischemic or nonischemic mediated. Has been started on medical management. This is included aspirin, beta blockers , and lipid-lowering agents. He has not been on JANINE inhibitors or ARB secondary to his ongoing renal insufficiency. He may eventually need further evaluation with noninvasive or invasive studies. However this may depend upon his underlying mental status as well as his other medical issues including his renal insufficiency. 2. Cardiomyopathy As appear to have an underlying cardiomyopathy. His LV systolic function is markedly depressed according to his echocardiographic studies. Again the etiology is unclear as noted above. He will continue medical management. His medications will be adjusted based upon his ability to tolerate them from the standpoint of vital signs, renal function, etc. 3. Hypertension He apparently has a history of hypertension. He will continue medical therapy as deemed appropriate. 4. Renal insufficiency He does have the appearance of renal insufficiency. He will continue evaluation care per internal medicine and nephrology. However this does impact his cardiovascular status and medical therapy and ability to undergo additional cardiovascular studies including invasive studies. 5. Dementia He does have a history of dementia. He appears to have been noted to be confused. Again this impacts his ongoing evaluation and care. This note was generated with [employer] software. It may contain incorrect words, spelling, and punctuation that were not noted in checking the note before signing.
[2017-07-25] VITALS (16 sets, daily range): BP systolic 91–125; BP diastolic 50–60; PULSE 71–88; RESP 16–18; TEMP 36.3–36.8; O2SAT 80–98
[2017-07-25 05:48] LABS: Partial Thromboplast Time 54.1 Seconds (24.1-36.2)
[2017-07-25 05:49] LABS: Anion Gap 13 (5-15); BUN 116 mg/dL (7-18); BUN/Creat Ratio 46.6 RATIO (10-20); Calcium,Total 8.8 mg/dL (8.5-10.1); Chloride 104 mmol/L (98-107); Creatinine, Serum 2.49 mg/dL (0.70-1.30); EST Glomerular Filtration Rate 27 mL/min (>60); Est Glom Filt Rate - Afr Amer 33 mL/min (>60); Glucose 104 mg/dL (74-106); Potassium 4.9 mmol/L (3.5-5.1); Sodium Level 140 mmol/L (136-145)
[2017-07-25] MEDS: 0.9% Normal Saline 1,000 ML 100 ML IV (06:45)
[2017-07-25] MEDS: Ipratropium/Albuterol Sulfate 3 ML AMPUL.NEB INHALATION ×3 (07:25→19:15)
[2017-07-25] MEDS: 0.9% NaCl Peripheral Flush Adult/Peds IV (07:40)
--- NOTE | 2017-07-25 08:59 | PCM.PN.CARD ---
Subjectve: The patient remains confused. Objective: Vital Signs Temp Pulse Resp BP Pulse Ox 98.2 F 63 16 107/57 L 93 07/25/17 06:48 07/25/17 07:26 07/25/17 07:26 07/25/17 06:48 07/25/17 07:26 Oxygen Delivery Method Room Air Weight: 192 lb 10.944 oz Body Mass Index (BMI) 26.9 Intake and Output for Last 24 Hours 07/23/17 07/24/17 07/25/17 23:59 23:59 23:59 Intake Total 2743 / 2743 2580 / 2580 Output Total 600 / 600 345 / 345 100 / 100 Balance 2143 / 2143 2235 / 2235 -100 / -100 General: Disoriented Neck: Positive JVD Lungs: - - Scattered upper air way sounds Cardiovascular: Regular Rhythm, Premature Ectopic Beats, Normal S1, Normal S2 Abdomen: Bowel Sounds Present, Soft Extremities: Mild RLE Edema, Mild LLE Edema 07/24/17 12:52: Sodium 138, Potassium 5.0, Chloride 105, Carbon Dioxide 23.0, Anion Gap 10, BUN 108 H*, Creatinine 2.23 H, Est GFR (MDRD) Af Amer 37 L, Est GFR (MDRD) Non-Af 31 L, BUN/Creatinine Ratio 48.4 H, Glucose 108 H, Calcium 8.8 07/24/17 14:40: APTT 69.9 H 07/24/17 15:05: Urine Color Yellow, Urine Clarity Sl. Cloudy, Urine pH 5.0, Ur Specific [place] 1.020, Urine Protein 15 H, Urine Glucose (UA) Normal, Urine Ketones Negative, Urine Occult Blood Negative, Urine Nitrite Negative, Urine Bilirubin Negative, Urine Urobilinogen 1 H, Ur Leukocyte Esterase Negative, Urine RBC 0 SEEN, Urine WBC 0 SEEN 07/24/17 20:45: APTT 68.0 H 07/25/17 04:55: Sodium 140, Potassium 4.9, Chloride 104, Carbon Dioxide 23.0, Anion Gap 13, BUN 116 H*, Creatinine 2.49 H, Est GFR (MDRD) Af Amer 33 L, Est GFR (MDRD) Non-Af 27 L, BUN/Creatinine Ratio 46.6 H, Glucose 104, Calcium 8.8 07/25/17 04:55: APTT 54.1 H Rhythm: sinus rhythm; PVCs Assessment/Plan 1. Non-ST segment elevation [place] The patient has continued to be followed. He has undergone noninvasive studies. He does have the appearance of underlying cardiomyopathy. There is a concern whether this is ischemic or nonischemic mediated. Has been started on medical management. This is included aspirin, beta blockers, and lipid-lowering agents. He has not been on JANINE inhibitors or ARB secondary to his ongoing renal insufficiency. However, due to his confusion and concern of possible aspiration, he is unable to take oral medications. Thus, his medications may need to altered to topical or IV medications. He may eventually need further evaluation with noninvasive or invasive studies. However this may depend upon his underlying mental status as well as his other medical issues including his renal insufficiency. 2. Cardiomyopathy As appear to have an underlying cardiomyopathy. His LV systolic function is markedly depressed according to his echocardiographic studies. Again the etiology is unclear as noted above. He will continue medical management. His medications will be adjusted based upon his ability to tolerate them from the standpoint of vital signs, renal function, etc., as noted above. 3. Hypertension He apparently has a history of hypertension. He will continue medical therapy as deemed appropriate and able. 4. Renal insufficiency He does have the appearance of renal insufficiency. He will continue evaluation care per internal medicine and nephrology. However this does impact his cardiovascular status and medical therapy and ability to undergo additional cardiovascular studies including invasive studies. 5. Dementia He does have a history of dementia. He appears to have been noted to be confused. Again this impacts his ongoing evaluation and care. Comment: His case has been discussed with Dr. Delgado of nephrology. She discussed the case with the patients spouse via telephone. At the present time the patient' spouse requests continue evaluation / care including if needed dialysis. At the present time, Dr. Delgado is planning continuing medical therapy with IV fluids. If the patient does not improve with respect to overall status / renal function then the tentative plan will be for initiation of dialysis therapy. The patients future cardiac evaluation will depend upon his overall status including his renal function. This note was generated with [employer] software. It may contain incorrect words, spelling, and punctuation that were not noted in checking the note before signing.
--- NOTE | 2017-07-25 09:13 | PN.CARD_ITS ---
Subjectve: The patient remains confused. Objective: Vital Signs Temp Pulse Resp BP Pulse Ox 98.2 F 63 16 107/57 L 93 07/25/17 06:48 07/25/17 07:26 07/25/17 07:26 07/25/17 06:48 07/25/17 07:26 Oxygen Delivery Method Room Air Weight: 192 lb 10.944 oz Body Mass Index (BMI) 26.9 Intake and Output for Last 24 Hours 07/23/17 07/24/17 07/25/17 23:59 23:59 23:59 Intake Total 2743 / 2743 2580 / 2580 Output Total 600 / 600 345 / 345 100 / 100 Balance 2143 / 2143 2235 / 2235 -100 / -100 General: Disoriented Neck: Positive JVD Lungs: - - Scattered upper air way sounds Cardiovascular: Regular Rhythm, Premature Ectopic Beats, Normal S1, Normal S2 Abdomen: Bowel Sounds Present, Soft Extremities: Mild RLE Edema, Mild LLE Edema 07/24/17 12:52: Sodium 138, Potassium 5.0, Chloride 105, Carbon Dioxide 23.0, Anion Gap 10, BUN 108 H*, Creatinine 2.23 H, Est GFR (MDRD) Af Amer 37 L, Est GFR (MDRD) Non-Af 31 L, BUN/Creatinine Ratio 48.4 H, Glucose 108 H, Calcium 8.8 07/24/17 14:40: APTT 69.9 H 07/24/17 15:05: Urine Color Yellow, Urine Clarity Sl. Cloudy, Urine pH 5.0, Ur Specific [place] 1.020, Urine Protein 15 H, Urine Glucose (UA) Normal, Urine Ketones Negative, Urine Occult Blood Negative, Urine Nitrite Negative, Urine Bilirubin Negative, Urine Urobilinogen 1 H, Ur Leukocyte Esterase Negative, Urine RBC 0 SEEN, Urine WBC 0 SEEN 07/24/17 20:45: APTT 68.0 H 07/25/17 04:55: Sodium 140, Potassium 4.9, Chloride 104, Carbon Dioxide 23.0, Anion Gap 13, BUN 116 H*, Creatinine 2.49 H, Est GFR (MDRD) Af Amer 33 L, Est GFR (MDRD) Non-Af 27 L, BUN/Creatinine Ratio 46.6 H, Glucose 104, Calcium 8.8 07/25/17 04:55: APTT 54.1 H Rhythm: sinus rhythm; PVCs Assessment/Plan 1. Non-ST segment elevation [place] The patient has continued to be followed. He has undergone noninvasive studies. He does have the appearance of underlying cardiomyopathy. There is a concern whether this is ischemic or nonischemic mediated. Has been started on medical management. This is included aspirin, beta blockers , and lipid-lowering agents. He has not been on JANINE inhibitors or ARB secondary to his ongoing renal insufficiency. However, due to his confusion and concern of possible aspiration, he is unable to take oral medications. Thus, his medications may need to altered to topical or IV medications. He may eventually need further evaluation with noninvasive or invasive studies. However this may depend upon his underlying mental status as well as his other medical issues including his renal insufficiency. 2. Cardiomyopathy As appear to have an underlying cardiomyopathy. His LV systolic function is markedly depressed according to his echocardiographic studies. Again the etiology is unclear as noted above. He will continue medical management. His medications will be adjusted based upon his ability to tolerate them from the standpoint of vital signs, renal function, etc., as noted above. 3. Hypertension He apparently has a history of hypertension. He will continue medical therapy as deemed appropriate and able. 4. Renal insufficiency He does have the appearance of renal insufficiency. He will continue evaluation care per internal medicine and nephrology. However this does impact his cardiovascular status and medical therapy and ability to undergo additional cardiovascular studies including invasive studies. 5. Dementia He does have a history of dementia. He appears to have been noted to be confused. Again this impacts his ongoing evaluation and care. Comment: His case has been discussed with Dr. Delgado of nephrology. She discussed the case with the patients spouse via telephone. At the present time the patient ' spouse requests continue evaluation / care including if needed dialysis. At the present time, Dr. Delgado is planning continuing medical therapy with IV fluids. If the patient does not improve with respect to overall status / renal function then the tentative plan will be for initiation of dialysis therapy. The patients future cardiac evaluation will depend upon his overall status including his renal function. This note was generated with Prism Skyl[employer] software. It may contain incorrect words, spelling, and punctuation that were not noted in checking the note before signing.
[2017-07-25] MEDS: HEPARIN/D5w 25,000 UNITS 25,000 UNITS/250 ML IV.SOLN. 10 UNITS IV (13:18)
[2017-07-25 14:41] LABS: Partial Thromboplast Time 70.8 Seconds (24.1-36.2)
[2017-07-25] MEDS: 0.9% Normal Saline 1,000 ML 125 ML IV (15:10)
--- NOTE | 2017-07-25 17:45 | PCM.CONS.GEN ---
Problem List (1) Acute renal failure Status: Acute Qualifiers: Acute renal failure type: unspecified Qualified Code(s): N17.9 - Acute kidney failure, unspecified Reason for Consult Date of Consultation: 07/25/17 History of Present Illness: The patient is a 76 year old M who was hospitalized on July 22, 2017. Problems include chronic dementia, chronic constipation, chronic GERD, chronic iron deficiency anemia, chronic depression, history of pulmonary embolism, hyperlipidemia, hypertension, chronic low back pain, chronic obstructive airways disease. He was admitted with acute malaise and poor oral intake and decreased urine output. Was found to have an acute non-ST segment IN. Acute renal injury, possible underlying congestive heart failure. I have been asked by Dr. Haydee Delgado to see this patient for placement of dialysis catheters. Patient's was present. A full discussion was had. She is wanting all resuscitative measures to be pursued at this time. Past Medical History Past Medical History (Chronic Problems): Chronic Problems Dementia (Chronic) Chronic obstructive pulmonary disease (Chronic) Former tobacco use (Chronic) Subacute delirium (Chronic) Hypokalemia (Chronic) Constipation (Chronic) GERD (gastroesophageal reflux disease) (Chronic) Iron deficiency anemia (Chronic) Depression (Chronic) Pulmonary embolism (Chronic) History of pulmonary embolism (Chronic) Status post total right knee replacement (Chronic) Hyperlipidemia (Chronic) Hypertension (Chronic) Chronic lower back pain (Chronic) Allergies hydrocodone [From Vicodin] Adverse Reaction (Verified 07/22/17 17:19) Itching lorazepam [From Ativan] Adverse Reaction (Verified 07/22/17 17:19) Other MAKES ME CRAZY morphine Adverse Reaction (Verified 07/22/17 17:19) Other MAKES HIM CRAZY PER Home Medications: Ambulatory Orders Medication Instructions Recorded Amlodipine Besylate [Norvasc] 10 mg PO DAILY 07/11/16 Duloxetine Hcl [Cymbalta] 60 mg PO DAILY 07/11/16 Hydrochlorothiazide [Hctz] 25 mg PO DAILY 07/11/16 Omeprazole [Prilosec] 40 mg PO DAILY 09/20/16 Simvastatin [Zocor] 10 mg PO QHS 09/20/16 Acetaminophen [Tylenol] 1,000 mg PO Q8 30 Days tablet 09/30/16 DiphenhydrAMINE [Benadryl] 25 mg PO QHS PRN PRN 07/22/17 Memantine HCl/Donepezil HCl 1 each PO QHS 07/22/17 [Namzaric 28 mg-10 mg Capsule] Multivit-Min/FA/Lycopen/Lutein 1 each PO DAILY 07/22/17 [Centrum Silver Tablet] Oxycodone HCl/Acetaminophen 1 tablet PO TID 07/22/17 [Percocet 10-325 mg Tablet] Oxycodone Myristate [Xtampza ER] 18 mg PO BID 07/22/17 Surgical History: appendectomy, cholecystectomy, herniorrhaphy, total hip arthroplasty - Right, 2011., total knee arthroplasty - 2011, then 09/27/2016., tonsillectomy, - - Laminectomy 1974, Spinal fusion L4, L5, S1 1979, Right knee antibiotic spacer 07/12/2016 Dr. Perea. Psychiatric History: Depression Lives: Spouse/ Significant Other Smoking Status: Former smoker - Quit ~2 years prior. Tobacco Use: Non-smoker Alcohol: Rare Drugs: None - *Family History Maternal History Items: Dementia Paternal History Items: Cancer - Father age 47 from liver CA. Review of Systems Unable to obtain accurate/complete ROS d/t: Unable to obtain because of dementia and inability to express himself Patient Problems: Active and Suspected Problems Elevated troponin I level (Acute) Acute renal failure (Acute) - Physical Exam General: - - Patient has tremors jerks. Gurgling respirations, appears significantly ill HEENT: - - Torticollis severe Neck: Negative Carotid Bruits Lungs: - - Coarse bilaterally Cardiovascular: Regular rate Abdomen: Bowel Sounds Present, Non Tender Extremities: - - Evidence of bilateral knee incisions, Ramon wrap bilateral feet and calves Vital Signs Temp Pulse Resp BP Pulse Ox 97.4 F L 79 16 105/51 L 97 07/25/17 12:48 07/25/17 15:06 07/25/17 13:09 07/25/17 12:48 07/25/17 12:48 Oxygen Delivery Method Room Air Weight: 192 lb 10.944 oz Body Mass Index (BMI) 26.9 Intake and Output for Last 24 Hours 07/23/17 07/24/17 07/25/17 23:59 23:59 23:59 Intake Total 2743 / 2743 2580 / 2580 870 / 870 Output Total 600 / 600 345 / 345 275 / 275 Balance 2143 / 2143 2235 / 2235 595 / 595 Laboratory Tests Past 24 Hrs 07/24/17 07/25/17 07/25/17 20:45 04:55 04:55 APTT 68.0 H 54.1 H Sodium 140 Potassium 4.9 Chloride 104 Carbon Dioxide 23.0 Anion Gap 13 BUN 116 H* Creatinine 2.49 H Estim Creat Clear Calc 27.30 Est GFR (MDRD) Af Amer 33 L Est GFR (MDRD) Non-Af 27 L BUN/Creatinine Ratio 46.6 H Glucose 104 Calcium 8.8 07/25/17 13:45 APTT 70.8 H Sodium Potassium Chloride Carbon Dioxide Anion Gap BUN Creatinine Estim Creat Clear Calc Est GFR (MDRD) Af Amer Est GFR (MDRD) Non-Af BUN/Creatinine Ratio Glucose Calcium Assessment/Plan Active and Suspected Problems Elevated troponin I level (Acute) Acute renal failure (Acute) It is of note that the patient is on aspirin and Aricept and Cymbalta and is fully anticoagulated on IV heparin. Spin additionally treated with Apresoline. This is in addition to his other medications. Operatory significant for PTT of 70.8. BUN is 116 and creatinine 2.49. His most recent white count was 9.6 with a hemoglobin of 10 and hematocrit 31.9 and a platelet count of 350,000 I have discussed treatment options with the patient's . I offered palliative comfort care versus ongoing aggressive treatment. The patient requests all options be pursued. I discussed placement of tunneled hemodialysis catheters. We discussed the technique, benefits, risks and alternatives. Absolutely no guarantees of success have been offered. The the patient's is very much aware that this is a higher risk surgical procedure for this patient and that he is at risk for complication including . Pending the patient's progress we will tentatively proceed with placement of catheters tomorrow. I appreciate the opportunity of assisting with surgical care Paco Alaniz M.D., F.A.C.S.
--- NOTE | 2017-07-25 17:47 | PCM.CONS.R ---
Consultation - Renal 07/25/17 PCP/ Referring MD: Requesting physician: Shaka Wang Primary care physician: Jonel Mckeon Reason for Consultation:: KARINE - History of Present Illness History of Present Illness: The patient is a 76 M brought in from home for complaints of progressive weakness past 2 weeks with poor oral intake.He has a history of chronic pain syndrome on narcotics for spinal stenosis, foot drop, back pain. He has been requiring a walker recently with progressive weakness. His states he did not express chest pain but was breathless with minimal exertion past week. He has no prior history of heart disease that he is aware of. Echo on admit showed severe LV dysfunction with EF 10-15% with moderate,severe right ventricular dysfunction. He was started on heparin drip for NSTEMI and cardiology was consulted. He was instructed to increase his thiazide diuretic for increased leg swelling. He has a history of PE. His mentation has been progressively worsening. He remains on oxycodone for pain. Consulted for worsening renal function. Creatinine was 1.12 on 06/29/17. Creatinine on admit was 2.64 improved to 2.23 yesterday with gentle hydration. Creatinine increased to 2.49 today with little improvement in urine output despite iv fluids. His lisinopril and HCTZ were discontinued. He has a history of renal failure in the past with prior sepsis from right knee infection requiring spacers, arthroplasty and following a GB removal 3 years ago. He did not require dialysis in the past and did not require f/u with a bag tester. He has a history of dementia and is unable to provide history. Contacted his spouse who provided history over phone. Pt full code and wants everything done including hemodialysis if needed. CXR showed COPD on admit. Renal US was unremarkable for hydronephrosis. - Allergies Allergies: Allergies hydrocodone [From Vicodin] Adverse Reaction (Verified 07/22/17 17:19) Itching lorazepam [From Ativan] Adverse Reaction (Verified 07/22/17 17:19) Other MAKES ME CRAZY morphine Adverse Reaction (Verified 07/22/17 17:19) Other MAKES HIM CRAZY PER - Current Medications Current Medications: Current Medications Al Hydroxide/Mg Hydroxide (Mylanta Ii) 30 ml PO Q6H PRN PRN PRN Reason: Gastric burning Albuterol Sulfate (Ventolin Aerosols) 2.5 mg INHALATION Q2H PRN PRN PRN Reason: dyspnea, wheezing Albuterol/Ipratropium (Duoneb) 3 ml INHALATION Q6HWA.RT [facility] Last Admin: 07/25/17 13:08 Dose: 3 ml Aspirin (Ecotrin) 81 mg PO DAILY@0800 [facility] Last Admin: 07/25/17 09:07 Dose: Not Given Atorvastatin Calcium (Lipitor) 5 mg PO QHS [facility] Last Admin: 07/24/17 22:04 Dose: Not Given Donepezil HCl (Aricept) 10 mg PO DAILY [facility] Last Admin: 07/25/17 09:08 Dose: Not Given Duloxetine HCl (Cymbalta) 60 mg PO DAILY [facility] Last Admin: 07/25/17 09:08 Dose: Not Given Heparin Sodium (Porcine) (Heparin Na) 0 unit IV UD PRN PRN Reason: Protocol Last Admin: 07/25/17 07:40 Dose: 1,000 units Hydralazine HCl (Apresoline) 10 mg IV Q4H PRN PRN PRN Reason: SBP > 160 Heparin Sodium/Dextrose () 25,000 units in 250 mls @ 12 mls/hr IV .[id number] [facility]; As Directed PRN Reason: Protocol Last Admin: 07/25/17 13:18 Dose: 10 mls/hr Sodium Chloride () 1,000 mls @ 125 mls/hr IV .Q8H [facility] Last Admin: 07/25/17 15:10 Dose: 125 mls/hr Magnesium Hydroxide (Milk Of Magnesia) 30 ml PO DAILY PRN PRN Reason: Constipation Memantine (Namenda) 10 mg PO BID [facility] Last Admin: 07/25/17 09:08 Dose: Not Given Metoprolol Succinate (Toprol Xl (Beta Ceci)) 25 mg PO BID [facility] Nitroglycerin (Nitrostat) 0.4 mg SUBLINGUAL Q5M PRN PRN Reason: CHEST PAIN Ondansetron HCl (Zofran) 4 mg IV Q8H PRN PRN PRN Reason: NAUSEA Oxycodone HCl (Oxyir) 10 mg PO Q4H PRN PRN PRN Reason: SEVERE PAIN (6-10/10) Last Admin: 07/24/17 19:20 Dose: 10 mg Oxycodone HCl (Oxycontin) 20 mg PO BID [facility] Last Admin: 07/25/17 09:08 Dose: Not Given Pantoprazole Sodium (Protonix) 40 mg PO DAILY [facility] Last Admin: 07/25/17 09:08 Dose: Not Given Promethazine HCl (Phenergan (Ll)) 12.5 mg IV Q6H PRN PRN PRN Reason: NAUSEA/VOMITING Sodium Chloride () 5 - 30 ml IV UD PRN PRN Reason: SALINE FLUSH Last Admin: 07/25/17 07:40 Dose: 10 ml - Past Medical History Past Medical History (Chronic Problems): Chronic Problems Dementia (Chronic) Chronic obstructive pulmonary disease (Chronic) Former tobacco use (Chronic) Subacute delirium (Chronic) Hypokalemia (Chronic) Constipation (Chronic) GERD (gastroesophageal reflux disease) (Chronic) Iron deficiency anemia (Chronic) Depression (Chronic) Pulmonary embolism (Chronic) History of pulmonary embolism (Chronic) Status post total right knee replacement (Chronic) Hyperlipidemia (Chronic) Hypertension (Chronic) Chronic lower back pain (Chronic) - Past Surgical History Surgical History: appendectomy, cholecystectomy, herniorrhaphy, total hip arthroplasty - Right, 2011., total knee arthroplasty - 2011, then 09/27/2016., tonsillectomy, - - Laminectomy 1974, Spinal fusion L4, L5, S1 1979, Right knee antibiotic spacer 07/12/2016 Dr. Perea. - Social History Marital Status: Smoking Status: Former smoker - Quit ~2 years prior. Alcohol: Rare Drugs: None - Family History Maternal History Items: Dementia Paternal History Items: Cancer - Father age 47 from liver CA. Review of Systems Constitutional: Reports: Anorexia, Weakness, Fatigue. Denies: Chills, Fever Eyes: Denies: Blurred vision Cardiovascular: Reports: Edema, - - breathlessness. Denies: Chest Pain Respiratory: Reports: Cough - with swallowing per nursing staff, Shortness of Breath, Shortness of breath upon exertion Gastrointestinal: Reports: - - anorexia. Denies: Abdominal Pain, Constipation, Diarrhea, Nausea, Vomiting Genitourinary: Reports: - - decreased urine output, waters catheter inserted. Denies: Dysuria Musculoskeletal: Reports: - - spinal stenosis, sciatica Skin: Denies: Rash Neurological: Reports: Balance problems, Tremor, - - weakness, uses walker at home Psychiatric: Reports: Depression Hematologic/ Lymphatic: Reports: Anemia, Hx of blood clot - PE Patient Problems: Active and Suspected Problems Elevated troponin I level (Acute) Acute renal failure (Acute) - Physical Exam General: No apparent distress, Confused, Disoriented, - - poor historian, follows commands, debilitated HEENT: PERRLA, EOMI, - - tortocolis Oral: Dry Mucosa Neck: Supple, No JVD Lungs: Clear to auscultation, Diminished Cardiovascular: Regular rate, No rub noted Abdomen: Bowel Sounds Present, Soft, Non Tender, Non-Distended Extremities: No edema Skin: Excoriated - abrasions on toes, shins, - Musculoskeletal: Muscle Wasting, - - R TKA with deformity, generalized weakness of all four extremities Neurological: - - generalized weakness, tremor in upper extremities Psych/Mental Status: Flat Affect, Depressed, - - confused to time, place Vital Signs Temp Pulse Resp BP Pulse Ox 97.4 F L 79 16 105/51 L 97 07/25/17 12:48 07/25/17 15:06 07/25/17 13:09 07/25/17 12:48 07/25/17 12:48 Oxygen Delivery Method Room Air Weight: 87.4 kg Body Mass Index (BMI) 26.9 Intake and Output for Last 24 Hours 07/23/17 07/24/17 07/25/17 23:59 23:59 23:59 Intake Total 2743 / 2743 2580 / 2580 870 / 870 Output Total 600 / 600 345 / 345 275 / 275 Balance 2143 / 2143 2235 / 2235 595 / 595 Laboratory Tests Past 24 Hrs 07/24/17 07/25/17 07/25/17 20:45 04:55 04:55 APTT 68.0 H 54.1 H Sodium 140 Potassium 4.9 Chloride 104 Carbon Dioxide 23.0 Anion Gap 13 BUN 116 H* Creatinine 2.49 H Estim Creat Clear Calc 27.30 Est GFR (MDRD) Af Amer 33 L Est GFR (MDRD) Non-Af 27 L BUN/Creatinine Ratio 46.6 H Glucose 104 Calcium 8.8 07/25/17 13:45 APTT 70.8 H Sodium Potassium Chloride Carbon Dioxide Anion Gap BUN Creatinine Estim Creat Clear Calc Est GFR (MDRD) Af Amer Est GFR (MDRD) Non-Af BUN/Creatinine Ratio Glucose Calcium Clinical Impression(s) from Imaging Studies Chest X-Ray 07/22/17 18:07 IMPRESSION: 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 Probable scarring or atelectasis in the right lung base. Electronically Signed: Dick Gray MD at 19:31 EST , Service support , Renal Ultrasound 07/24/17 13:45 IMPRESSION: Simple left renal cortical cyst Electronically Signed: Leno Pinedo MD at 23:56 EST , Service support , Assessment/Plan Active and Suspected Problems Elevated troponin I level (Acute) Acute renal failure (Acute) 1. KARINE with baseline creatinine 0.9-1.0 in Jun 2017, 2016. Creatinine 2.6 on admit taking lisinopril and HCTz at home with poor oral intake. Creatinine improved to 2.23 with iv hydration now at 2.49 suspect prerenal event from cardiomyopathy, biventricular failure LVEF 10-15%, recent NSTEMI, poor intake, hypotension. Agree with gentle hydration, hold lisinopril. Avoid nephrotoxins. No recent iv contrast studies. Discussed with pt spouse that he may require dialysis if continues to have poor urinary output with continued rise in creatinine. Spouse wants everything done including dialysis if needed. Renal US without hydronephrosis. UCr 183, UA with high specific gravity suggestive of prerenal event. 2. Acute NSTEMI with severe cardiomyopathy that is new to pt. Cardiology following. Remains on heparin drip. 3. History of pulmonary embolus BNP elevated at 2094 4. Recent diagnosis of dementia started on dementia drugs 3 months ago, now with worsening mentation. Likely from combination of narcotics, renal failure. 5. Consult Dr. Alaniz for possible dialysis access placement. DW hospitalist, cardiology, surgery, nursing staff.
--- NOTE | 2017-07-25 17:58 | CON.PCM_ITS ---
Consultation - Renal 07/25/17 PCP/ Referring MD: Requesting physician: Shaka Wang Primary care physician: Jonel Mckeon Reason for Consultation:: KARINE - History of Present Illness History of Present Illness: The patient is a 76 M brought in from home for complaints of progressive weakness past 2 weeks with poor oral intake.He has a history of chronic pain syndrome on narcotics for spinal stenosis, foot drop, back pain. He has been requiring a walker recently with progressive weakness. His states he did not express chest pain but was breathless with minimal exertion past week. He has no prior history of heart disease that he is aware of. Echo on admit showed severe LV dysfunction with EF 10-15% with moderate,severe right ventricular dysfunction. He was started on heparin drip for NSTEMI and cardiology was consulted. He was instructed to increase his thiazide diuretic for increased leg swelling. He has a history of PE. His mentation has been progressively worsening. He remains on oxycodone for pain. Consulted for worsening renal function. Creatinine was 1.12 on 06/29/17. Creatinine on admit was 2.64 improved to 2.23 yesterday with gentle hydration. Creatinine increased to 2.49 today with little improvement in urine output despite iv fluids. His lisinopril and HCTZ were discontinued. He has a history of renal failure in the past with prior sepsis from right knee infection requiring spacers, arthroplasty and following a GB removal 3 years ago. 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 He has a history of dementia and is unable to provide history. Contacted his spouse who provided history over phone. Pt full code and wants everything done including hemodialysis if needed. CXR showed COPD on admit. Renal US was unremarkable for hydronephrosis. - Allergies Allergies: Allergies hydrocodone [From Vicodin] Adverse Reaction (Verified 07/22/17 17:19) Itching lorazepam [From Ativan] Adverse Reaction (Verified 07/22/17 17:19) Other MAKES ME CRAZY morphine Adverse Reaction (Verified 07/22/17 17:19) Other MAKES HIM CRAZY PER - Current Medications Current Medications: Current Medications Al Hydroxide/Mg Hydroxide (Mylanta Ii) 30 ml PO Q6H PRN PRN PRN Reason: Gastric burning Albuterol Sulfate (Ventolin Aerosols) 2.5 mg INHALATION Q2H PRN PRN PRN Reason: dyspnea, wheezing Albuterol/Ipratropium (Duoneb) 3 ml INHALATION Q6HWA.RT [facility] Last Admin: 07/25/17 13:08 Dose: 3 ml Aspirin (Ecotrin) 81 mg PO DAILY@0800 [facility] Last Admin: 07/25/17 09:07 Dose: Not Given Atorvastatin Calcium (Lipitor) 5 mg PO QHS [facility] Last Admin: 07/24/17 22:04 Dose: Not Given Donepezil HCl (Aricept) 10 mg PO DAILY [facility] Last Admin: 07/25/17 09:08 Dose: Not Given Duloxetine HCl (Cymbalta) 60 mg PO DAILY [facility] Last Admin: 07/25/17 09:08 Dose: Not Given Heparin Sodium (Porcine) (Heparin Na) 0 unit IV UD PRN PRN Reason: Protocol Last Admin: 07/25/17 07:40 Dose: 1,000 units Hydralazine HCl (Apresoline) 10 mg IV Q4H PRN PRN PRN Reason: SBP > 160 Heparin Sodium/Dextrose () 25,000 units in 250 mls @ 12 mls/hr IV .[id number] [facility] ; As Directed PRN Reason: Protocol Last Admin: 07/25/17 13:18 Dose: 10 mls/hr Sodium Chloride () 1,000 mls @ 125 mls/hr IV .Q8H [facility] Last Admin: 07/25/17 15:10 Dose: 125 mls/hr Magnesium Hydroxide (Milk Of Magnesia) 30 ml PO DAILY PRN PRN Reason: Constipation Memantine (Namenda) 10 mg PO BID [facility] Last Admin: 07/25/17 09:08 Dose: Not Given Metoprolol Succinate (Toprol Xl (Beta Ceci)) 25 mg PO BID [facility] Nitroglycerin (Nitrostat) 0.4 mg SUBLINGUAL Q5M PRN PRN Reason: CHEST PAIN Ondansetron HCl (Zofran) 4 mg IV Q8H PRN PRN PRN Reason: NAUSEA Oxycodone HCl (Oxyir) 10 mg PO Q4H PRN PRN PRN Reason: SEVERE PAIN (6-10/10) Last Admin: 07/24/17 19:20 Dose: 10 mg Oxycodone HCl (Oxycontin) 20 mg PO BID [facility] Last Admin: 07/25/17 09:08 Dose: Not Given Pantoprazole Sodium (Protonix) 40 mg PO DAILY [facility] Last Admin: 07/25/17 09:08 Dose: Not Given Promethazine HCl (Phenergan (Ll)) 12.5 mg IV Q6H PRN PRN PRN Reason: NAUSEA/VOMITING Sodium Chloride () 5 - 30 ml IV UD PRN PRN Reason: SALINE FLUSH Last Admin: 07/25/17 07:40 Dose: 10 ml - Past Medical History Past Medical History (Chronic Problems): Chronic Problems Dementia (Chronic) Chronic obstructive pulmonary disease (Chronic) Former tobacco use (Chronic) Subacute delirium (Chronic) Hypokalemia (Chronic) Constipation (Chronic) GERD (gastroesophageal reflux disease) (Chronic) Iron deficiency anemia (Chronic) Depression (Chronic) Pulmonary embolism (Chronic) History of pulmonary embolism (Chronic) Status post total right knee replacement (Chronic) Hyperlipidemia (Chronic) Hypertension (Chronic) Chronic lower back pain (Chronic) - Past Surgical History Surgical History: appendectomy, cholecystectomy, herniorrhaphy, total hip arthroplasty - Right, 2011., total knee arthroplasty - 2011, then 09/27/2016., tonsillectomy, - - Laminectomy 1974, Spinal fusion L4, L5, S1 1979, Right knee antibiotic spacer 07/12/2016 Dr. Perea. - Social History Marital Status: Smoking Status: Former smoker - Quit ~2 years prior. Alcohol: Rare Drugs: None - Family History Maternal History Items: Dementia Paternal History Items: Cancer - Father age 47 from liver CA. Review of Systems Constitutional: Reports: Anorexia, Weakness, Fatigue. Denies: Chills, Fever Eyes: Denies: Blurred vision Cardiovascular: Reports: Edema, - - breathlessness. Denies: Chest Pain Respiratory: Reports: Cough - with swallowing per nursing staff, Shortness of Breath, Shortness of breath upon exertion Gastrointestinal: Reports: - - anorexia. Denies: Abdominal Pain, Constipation, Diarrhea, Nausea, Vomiting Genitourinary: Reports: - - decreased urine output, waters catheter inserted. Denies: Dysuria Musculoskeletal: Reports: - - spinal stenosis, sciatica Skin: Denies: Rash Neurological: Reports: Balance problems, Tremor, - - weakness, uses walker at home Psychiatric: Reports: Depression Hematologic/ Lymphatic: Reports: Anemia, Hx of blood clot - PE Patient Problems: Active and Suspected Problems Elevated troponin I level (Acute) Acute renal failure (Acute) - Physical Exam General: No apparent distress, Confused, Disoriented, - - poor historian, follows commands, debilitated HEENT: PERRLA, EOMI, - - tortocolis Oral: Dry Mucosa Neck: Supple, No JVD Lungs: Clear to auscultation, Diminished Cardiovascular: Regular rate, No rub noted Abdomen: Bowel Sounds Present, Soft, Non Tender, Non-Distended Extremities: No edema Skin: Excoriated - abrasions on toes, shins, - Musculoskeletal: Muscle Wasting, - - R TKA with deformity, generalized weakness of all four extremities Neurological: - - generalized weakness, tremor in upper extremities Psych/Mental Status: Flat Affect, Depressed, - - confused to time, place Vital Signs Temp Pulse Resp BP Pulse Ox 97.4 F L 79 16 105/51 L 97 07/25/17 12:48 07/25/17 15:06 07/25/17 13:09 07/25/17 12:48 07/25/17 12:48 Oxygen Delivery Method Room Air Weight: 87.4 kg Body Mass Index (BMI) 26.9 Intake and Output for Last 24 Hours 07/23/17 07/24/17 07/25/17 23:59 23:59 23:59 Intake Total 2743 / 2743 2580 / 2580 870 / 870 Output Total 600 / 600 345 / 345 275 / 275 Balance 2143 / 2143 2235 / 2235 595 / 595 Laboratory Tests Past 24 Hrs 07/24/17 07/25/17 07/25/17 20:45 04:55 04:55 APTT 68.0 H 54.1 H Sodium 140 Potassium 4.9 Chloride 104 Carbon Dioxide 23.0 Anion Gap 13 BUN 116 H* Creatinine 2.49 H Estim Creat Clear Calc 27.30 Est GFR (MDRD) Af Amer 33 L Est GFR (MDRD) Non-Af 27 L BUN/Creatinine Ratio 46.6 H Glucose 104 Calcium 8.8 07/25/17 13:45 APTT 70.8 H Sodium Potassium Chloride Carbon Dioxide Anion Gap BUN Creatinine Estim Creat Clear Calc Est GFR (MDRD) Af Amer Est GFR (MDRD) Non-Af BUN/Creatinine Ratio Glucose Calcium Clinical Impression(s) from Imaging Studies Chest X-Ray 07/22/17 18:07 IMPRESSION: 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 Probable scarring or atelectasis in the right lung base. Electronically Signed: Dick Gray MD at 19:31 EST , Service support , Renal Ultrasound 07/24/17 13:45 IMPRESSION: Simple left renal cortical cyst Electronically Signed: Leno Pinedo MD at 23:56 EST , Service support , Assessment/Plan Active and Suspected Problems Elevated troponin I level (Acute) Acute renal failure (Acute) 1. KARINE with baseline creatinine 0.9-1.0 in Jun 2017, 2016. Creatinine 2.6 on admit taking lisinopril and HCTz at home with poor oral intake. Creatinine improved to 2.23 with iv hydration now at 2.49 suspect prerenal event from cardiomyopathy, biventricular failure LVEF 10-15%, recent NSTEMI, poor intake, hypotension. Agree with gentle hydration, hold lisinopril. Avoid nephrotoxins. No recent iv contrast studies. Discussed with pt spouse that he may require dialysis if continues to have poor urinary output with continued rise in creatinine. Spouse wants everything done including dialysis if needed. Renal US without hydronephrosis. UCr 183, UA with high specific gravity suggestive of prerenal event. 2. Acute NSTEMI with severe cardiomyopathy that is new to pt. Cardiology following. Remains on heparin drip. 3. History of pulmonary embolus BNP elevated at 2094 4. Recent diagnosis of dementia started on dementia drugs 3 months ago, now with worsening mentation. Likely from combination of narcotics, renal failure. 5. Consult Dr. Alaniz for possible dialysis access placement. DW hospitalist, cardiology, surgery, nursing staff.
--- NOTE | 2017-07-25 18:04 | PCM.PN.HOSP ---
Patient Problems: Active and Suspected Problems Elevated troponin I level (Acute) Acute renal failure (Acute) Subjective: Cc: Troponin elevation, worsening KARINE This is a 76 y/o M with past medical history of who presents to the [facility] ED on 07/22/17 with decreased oral intake, dyspnea with exertion, decreased energy malaise. The patient much more somnolent today and has less urine output his renal parameters are worsening. Vitals/I&O's: Vital Signs Temp Pulse Resp BP Pulse Ox 97.4 F L 79 16 105/51 L 97 07/25/17 12:48 07/25/17 15:06 07/25/17 13:09 07/25/17 12:48 07/25/17 12:48 Oxygen Delivery Method Room Air Weight: 87.4 kg Body Mass Index (BMI) 26.9 Intake and Output for Last 24 Hours 07/23/17 07/24/17 07/25/17 23:59 23:59 23:59 Intake Total 2743 / 2743 2580 / 2580 870 / 870 Output Total 600 / 600 345 / 345 275 / 275 Balance 2143 / 2143 2235 / 2235 595 / 595 General: Confused HEENT: Atraumatic Oral: Moist Mucosa Neck: Supple Abdomen: Bowel Sounds Present, Soft Psych/Mental Status: Normal Affect Laboratory Results 07/24/17 20:45: APTT 68.0 H 07/25/17 04:55: Sodium 140, Potassium 4.9, Chloride 104, Carbon Dioxide 23.0, Anion Gap 13, BUN 116 H*, Creatinine 2.49 H, Estim Creat Clear Calc 27.30, Est GFR (MDRD) Af Amer 33 L, Est GFR (MDRD) Non-Af 27 L, BUN/Creatinine Ratio 46.6 H, Glucose 104, Calcium 8.8 07/25/17 04:55: APTT 54.1 H 07/25/17 13:45: APTT 70.8 H Current Medications Al Hydroxide/Mg Hydroxide (Mylanta Ii) 30 ml PO Q6H PRN PRN PRN Reason: Gastric burning Albuterol Sulfate (Ventolin Aerosols) 2.5 mg INHALATION Q2H PRN PRN PRN Reason: dyspnea, wheezing Albuterol/Ipratropium (Duoneb) 3 ml INHALATION Q6HWA.RT [facility] Last Admin: 07/25/17 13:08 Dose: 3 ml Aspirin (Ecotrin) 81 mg PO DAILY@0800 [facility] Last Admin: 07/25/17 09:07 Dose: Not Given Atorvastatin Calcium (Lipitor) 5 mg PO QHS [facility] Last Admin: 07/24/17 22:04 Dose: Not Given Donepezil HCl (Aricept) 10 mg PO DAILY [facility] Last Admin: 07/25/17 09:08 Dose: Not Given Duloxetine HCl (Cymbalta) 60 mg PO DAILY [facility] Last Admin: 07/25/17 09:08 Dose: Not Given Heparin Sodium (Porcine) (Heparin Na) 0 unit IV UD PRN PRN Reason: Protocol Last Admin: 07/25/17 07:40 Dose: 1,000 units Hydralazine HCl (Apresoline) 10 mg IV Q4H PRN PRN PRN Reason: SBP > 160 Heparin Sodium/Dextrose () 25,000 units in 250 mls @ 12 mls/hr IV .[id number] [facility]; As Directed PRN Reason: Protocol Last Admin: 07/25/17 13:18 Dose: 10 mls/hr Sodium Chloride () 1,000 mls @ 125 mls/hr IV .Q8H [facility] Last Admin: 07/25/17 15:10 Dose: 125 mls/hr Cefazolin Sodium 2 gm/ Sodium (Chloride) 120 mls @ 240 mls/hr IV SEND TO OR W/PATIENT ONE Stop: 07/25/17 18:21 Magnesium Hydroxide (Milk Of Magnesia) 30 ml PO DAILY PRN PRN Reason: Constipation Memantine (Namenda) 10 mg PO BID [facility] Last Admin: 07/25/17 09:08 Dose: Not Given Metoprolol Succinate (Toprol Xl (Beta Ceci)) 25 mg PO BID [facility] Nitroglycerin (Nitrostat) 0.4 mg SUBLINGUAL Q5M PRN PRN Reason: CHEST PAIN Ondansetron HCl (Zofran) 4 mg IV Q8H PRN PRN PRN Reason: NAUSEA Oxycodone HCl (Oxyir) 10 mg PO Q4H PRN PRN PRN Reason: SEVERE PAIN (6-10/10) Last Admin: 07/24/17 19:20 Dose: 10 mg Oxycodone HCl (Oxycontin) 20 mg PO BID [facility] Last Admin: 07/25/17 09:08 Dose: Not Given Pantoprazole Sodium (Protonix) 40 mg PO DAILY [facility] Last Admin: 07/25/17 09:08 Dose: Not Given Promethazine HCl (Phenergan (Ll)) 12.5 mg IV Q6H PRN PRN PRN Reason: NAUSEA/VOMITING Sodium Chloride () 5 - 30 ml IV UD PRN PRN Reason: SALINE FLUSH Last Admin: 07/25/17 07:40 Dose: 10 ml Assessment/Plan Active and Suspected Problems Elevated troponin I level (Acute) Acute renal failure (Acute) 1. Troponin elevation consistent with NSTEMI, likely type II ; he was started on heparin drip and cardiology was consulted. No heart catheterization is recommended at this time. 2. Cardiomyopathy likely ischemic. we will Place him on appropriate cardioprotective medications. 3. Acute kidney injury; worsening renal parameters with oliguria, will continue IV fluids, nephrology to consider possible hemodialysis 3. history of diastolic heart failure , he is clinically compensated we will monitor him closely. 4. Dementia without behavioral disturbance; supportive measures. 5. 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 6. Dyslipidemia; he is on a statin. 7. Possible angioedema ; we will stop any of her new medication, would give a dose of Solu-Medrol 8. Prophylaxis with subcutaneous heparin. Code Visit Inpatient E&M: 20213 Subs Hosp L2
--- NOTE | 2017-07-25 18:08 | PN_ITS ---
Patient Problems: Active and Suspected Problems Elevated troponin I level (Acute) Acute renal failure (Acute) Subjective: Cc: Troponin elevation, worsening KARINE This is a 76 y/o M with past medical history of who presents to the [facility] ED on with decreased oral intake, dyspnea with exertion, decreased energy malaise. The patient much more somnolent today and has less urine output his renal parameters are worsening. Vitals/I&O's: Vital Signs Temp Pulse Resp BP Pulse Ox 97.4 F L 79 16 105/51 L 97 07/25/17 12:48 07/25/17 15:06 07/25/17 13:09 07/25/17 12:48 07/25/17 12:48 Oxygen Delivery Method Room Air Weight: 87.4 kg Body Mass Index (BMI) 26.9 Intake and Output for Last 24 Hours 07/23/17 07/24/17 07/25/17 23:59 23:59 23:59 Intake Total 2743 / 2743 2580 / 2580 870 / 870 Output Total 600 / 600 345 / 345 275 / 275 Balance 2143 / 2143 2235 / 2235 595 / 595 General: Confused HEENT: Atraumatic Oral: Moist Mucosa Neck: Supple Abdomen: Bowel Sounds Present, Soft Psych/Mental Status: Normal Affect Laboratory Results 07/24/17 20:45: APTT 68.0 H 07/25/17 04:55: Sodium 140, Potassium 4.9, Chloride 104, Carbon Dioxide 23.0, Anion Gap 13, BUN 116 H*, Creatinine 2.49 H, Estim Creat Clear Calc 27.30, Est GFR (MDRD) Af Amer 33 L, Est GFR (MDRD) Non-Af 27 L, BUN/Creatinine Ratio 46.6 H , Glucose 104, Calcium 8.8 07/25/17 04:55: APTT 54.1 H 07/25/17 13:45: APTT 70.8 H Current Medications Al Hydroxide/Mg Hydroxide (Mylanta Ii) 30 ml PO Q6H PRN PRN PRN Reason: Gastric burning Albuterol Sulfate (Ventolin Aerosols) 2.5 mg INHALATION Q2H PRN PRN PRN Reason: dyspnea, wheezing Albuterol/Ipratropium (Duoneb) 3 ml INHALATION Q6HWA.RT [facility] Last Admin: 07/25/17 13:08 Dose: 3 ml Aspirin (Ecotrin) 81 mg PO DAILY@0800 [facility] Last Admin: 07/25/17 09:07 Dose: Not Given Atorvastatin Calcium (Lipitor) 5 mg PO QHS [facility] Last Admin: 07/24/17 22:04 Dose: Not Given Donepezil HCl (Aricept) 10 mg PO DAILY [facility] Last Admin: 07/25/17 09:08 Dose: Not Given Duloxetine HCl (Cymbalta) 60 mg PO DAILY [facility] Last Admin: 07/25/17 09:08 Dose: Not Given Heparin Sodium (Porcine) (Heparin Na) 0 unit IV UD PRN PRN Reason: Protocol Last Admin: 07/25/17 07:40 Dose: 1,000 units Hydralazine HCl (Apresoline) 10 mg IV Q4H PRN PRN PRN Reason: SBP > 160 Heparin Sodium/Dextrose () 25,000 units in 250 mls @ 12 mls/hr IV .[id number] [facility] ; As Directed PRN Reason: Protocol Last Admin: 07/25/17 13:18 Dose: 10 mls/hr Sodium Chloride () 1,000 mls @ 125 mls/hr IV .Q8H [facility] Last Admin: 07/25/17 15:10 Dose: 125 mls/hr Cefazolin Sodium 2 gm/ Sodium (Chloride) 120 mls @ 240 mls/hr IV SEND TO OR W/ PATIENT ONE Stop: 07/25/17 18:21 Magnesium Hydroxide (Milk Of Magnesia) 30 ml PO DAILY PRN PRN Reason: Constipation Memantine (Namenda) 10 mg PO BID [facility] Last Admin: 07/25/17 09:08 Dose: Not Given Metoprolol Succinate (Toprol Xl (Beta Ceci)) 25 mg PO BID [facility] Nitroglycerin (Nitrostat) 0.4 mg SUBLINGUAL Q5M PRN PRN Reason: CHEST PAIN Ondansetron HCl (Zofran) 4 mg IV Q8H PRN PRN PRN Reason: NAUSEA Oxycodone HCl (Oxyir) 10 mg PO Q4H PRN PRN PRN Reason: SEVERE PAIN (6-10/10) Last Admin: 07/24/17 19:20 Dose: 10 mg Oxycodone HCl (Oxycontin) 20 mg PO BID [facility] Last Admin: 07/25/17 09:08 Dose: Not Given Pantoprazole Sodium (Protonix) 40 mg PO DAILY [facility] Last Admin: 07/25/17 09:08 Dose: Not Given Promethazine HCl (Phenergan (Ll)) 12.5 mg IV Q6H PRN PRN PRN Reason: NAUSEA/VOMITING Sodium Chloride () 5 - 30 ml IV UD PRN PRN Reason: SALINE FLUSH Last Admin: 07/25/17 07:40 Dose: 10 ml Assessment/Plan Active and Suspected Problems Elevated troponin I level (Acute) Acute renal failure (Acute) 1. Troponin elevation consistent with NSTEMI, likely type II ; he was started on heparin drip and cardiology was consulted. No heart catheterization is recommended at this time. 2. Cardiomyopathy likely ischemic. we will Place him on appropriate cardioprotective medications. 3. Acute kidney injury; worsening renal parameters with oliguria, will continue IV fluids, nephrology to consider possible hemodialysis 3. history of diastolic heart failure , he is clinically compensated we will monitor him closely. 4. Dementia without behavioral disturbance; supportive measures. 5. 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 6. Dyslipidemia; he is on a statin. 7. Possible angioedema ; we will stop any of her new medication, would give a dose of Solu-Medrol 8. Prophylaxis with subcutaneous heparin. Code Visit Inpatient E&M: 85205 Subs Hosp L2
[2017-07-25 19:47] LABS: Albumin, Serum 2.9 g/dL (3.2-5.0); BUN 108 mg/dL (7-18); BUN/Creat Ratio 48.9 RATIO (10-20); Chloride 108 mmol/L (98-107); Creatinine, Serum 2.21 mg/dL (0.70-1.30); EST Glomerular Filtration Rate 31 mL/min (>60); Est Glom Filt Rate - Afr Amer 37 mL/min (>60); Estimated Creatinine Clearance 30.76 ml/min; Glucose 105 mg/dL (74-106); Phosphorus 5.8 mg/dL (2.5-4.9); Potassium 4.6 mmol/L (3.5-5.1); Sodium Level 141 mmol/L (136-145)
[2017-07-25] MEDS: HYDROmorphone HCL 0.5 MG/0.5 ML SYRINGE IV (20:40)
[2017-07-25] MEDS: 0.9% Normal Saline 1,000 ML 75 ML IV (21:33)
[2017-07-26] VITALS (23 sets, daily range): BP systolic 113–149; BP diastolic 68–99; PULSE 73–108; RESP 16–18; TEMP 36.5–37.2; O2SAT 94–100; BMI 26.9
[2017-07-26] MEDS: HYDROmorphone HCL 0.5 MG/0.5 ML SYRINGE IV (04:43)
[2017-07-26 05:17] LABS: Absolute Lymphocyte Count 0.84 X10^3/ul (0.83-4.51); Absolute Neutrophil Count 9.6 X10^3/uL (2.0-7.7); Eosinophil# 0.01 X10^3/uL; Eosinophils% 0.1 % (0-5); Hematocrit 34.8 % (40-54); Hemoglobin 10.7 g/dl (13.0-16.5); Lymphocyte # 0.84 X10^3/ul (4.0); Lymphocyte % 7.7 % (19-41); Mean Corp Hgb Conc 30.7 g/gl (32-36); Mean Corpuscular Hgb 24.8 pg (27.0-32.0); Mean Corpuscular Volume 80.7 fL (80-94); Mean Platelet Vol. 8.9 fl (6.2-12.0); Monocyte# 0.39 X10^3/uL; Monocyte% 3.6 % (0-10); Neutrophil # 9.59 X10^3/uL (2.7-7.7); Neutrophil % 88.4 % (47-70); Platelet Count 416 K/mm3 (150-450); RBC Distribution Width CV 16.7 % (11.6-14.6); RBC Distribution Width SD 49.3 fl (35.1-43.9); Red Blood Count 4.31 M/mm3 (4.6-6.2); White Blood Count 10.9 K/mm3 (4.4-11.0)
[2017-07-26 05:18] LABS: International Normalized Ratio 1.2; Prothrombin Time (Protime)PT. 14.8 SECONDS (11.7-14.9)
[2017-07-26 05:30] LABS: Anion Gap 15 (5-15); BUN 102 mg/dL (7-18); Chloride 108 mmol/L (98-107); Creatinine, Serum 1.96 mg/dL (0.70-1.30); EST Glomerular Filtration Rate 36 mL/min (>60); Est Glom Filt Rate - Afr Amer 43 mL/min (>60); Estimated Creatinine Clearance 34.68 ml/min; Glucose 110 mg/dL (74-106); Potassium 4.4 mmol/L (3.5-5.1); Sodium Level 143 mmol/L (136-145)
[2017-07-26 05:39] LABS: POSITIVE COUNT NO; POSITIVE DIFFERENTIAL NO; POSITIVE MORPHOLOGY NO
--- NOTE | 2017-07-26 05:59 | PCM.PN.BLA ---
Progress Note UOP improved Labs about the same Tunneled cath placement on schedule for later today pending medical review I will not be available tomorrow for cath placement [place]
[2017-07-26 07:12] LABS: Partial Thromboplast Time 52.6 Seconds (24.1-36.2)
[2017-07-26] MEDS: Ipratropium/Albuterol Sulfate 3 ML AMPUL.NEB INHALATION ×2 (07:28→19:55)
--- NOTE | 2017-07-26 08:36 | PN.RENAL_ITS ---
Patient Problems: Active and Suspected Problems Elevated troponin I level (Acute) Acute renal failure (Acute) Subjective: Patient awake, follows commands but has slurred speech. Remains confused. His narcotics have been on hold. He is scheduled for tunneled dialysis catheter today. His renal function is slightly improved with minimal improvement in his mental status. - Physical Exam General: Alert, Confused, Disoriented HEENT: PERRLA, EOMI, - - torticollis Lungs: Rhonchi Cardiovascular: Regular rate Abdomen: Bowel Sounds Present, Soft, Non Tender, Non-Distended Extremities: Edema - mild BLE Skin: No rashes Musculoskeletal: - - muscle weakness Neurological: Slurred Speech, Unsteady Gait, - - tremor, coordination abnormal Psych/Mental Status: Flat Affect, Depressed, - - confused Vital Signs Temp Pulse Resp BP Pulse Ox 98.5 F 89 18 113/68 97 07/26/17 04:41 07/26/17 07:57 07/26/17 07:28 07/26/17 04:41 07/26/17 07:28 Oxygen Flow Rate 2.5 Oxygen Delivery Method Nasal Cannula Weight: 87.4 kg Body Mass Index (BMI) 26.9 Intake and Output for Last 24 Hours 07/24/17 07/25/17 07/26/17 23:59 23:59 23:59 Intake Total 2580 / 2580 2760.1 / 2760.1 445 / 445 Output Total 345 / 345 850 / 850 250 / 250 Balance 2235 / 2235 1910.1 / 1910.1 195 / 195 Laboratory Tests Past 24 Hrs 07/25/17 07/25/17 07/25/17 13:45 18:57 18:57 WBC RBC Hgb Hct MCV MCH MCHC RDW RDW Differential Plt Count MPV Immature Gran % (Auto) Neut % (Auto) Lymph % (Auto) [place] % (Auto) Eos % (Auto) Baso % (Auto) Absolute Neuts (auto) Absolute Lymphs (auto) Total Counted PT INR APTT 70.8 H Sodium 141 Cancelled Potassium 4.6 Cancelled Chloride 108 H Cancelled Carbon Dioxide 19.0 L Cancelled Anion Gap BUN 108 H* Cancelled Creatinine 2.21 H Cancelled Estim Creat Clear Calc 30.76 Cancelled Est GFR (MDRD) Af Amer 37 L Cancelled Est GFR (MDRD) Non-Af 31 L Cancelled BUN/Creatinine Ratio 48.9 H Cancelled Glucose 105 Cancelled Calcium 9.0 Cancelled Phosphorus 5.8 H Cancelled Albumin 2.9 L Cancelled 07/26/17 07/26/17 07/26/17 04:52 04:52 04:52 WBC 10.9 RBC 4.31 L Hgb 10.7 L Hct 34.8 L MCV 80.7 MCH 24.8 L MCHC 30.7 L RDW 16.7 H RDW Differential 49.3 H Plt Count 416 MPV 8.9 Immature Gran % (Auto) 0.200 Neut % (Auto) 88.4 H Lymph % (Auto) 7.7 L [place] % (Auto) 3.6 Eos % (Auto) 0.1 Baso % (Auto) 0.0 Absolute Neuts (auto) 9.6 H Absolute Lymphs (auto) 0.84 Total Counted Not Reportable PT INR APTT 52.6 H Sodium 143 Potassium 4.4 Chloride 108 H Carbon Dioxide 20.0 L Anion Gap 15 BUN 102 H* Creatinine 1.96 H Estim Creat Clear Calc 34.68 Est GFR (MDRD) Af Amer 43 L Est GFR (MDRD) Non-Af 36 L BUN/Creatinine Ratio 52.0 H Glucose 110 H Calcium 9.0 Phosphorus Albumin 07/26/17 04:52 WBC RBC Hgb Hct MCV MCH MCHC RDW RDW Differential Plt Count MPV Immature Gran % (Auto) Neut % (Auto) Lymph % (Auto) [place] % (Auto) Eos % (Auto) Baso % (Auto) Absolute Neuts (auto) Absolute Lymphs (auto) Total Counted PT 14.8 INR 1.2 APTT Sodium Potassium Chloride Carbon Dioxide Anion Gap BUN Creatinine Estim Creat Clear Calc Est GFR (MDRD) Af Amer Est GFR (MDRD) Non-Af BUN/Creatinine Ratio Glucose Calcium Phosphorus Albumin Assessment/Plan Active and Suspected Problems Elevated troponin I level (Acute) Acute renal failure (Acute) 1. KARINE with baseline creatinine 0.9-1.0 in Jun 20172016. Creatinine 2.6 on admit improved to 1.9 today. Decreased iv fluids. tsuspect prerenal event from cardiomyopathy, biventricular failure LVEF 10-15%, recent NSTEMI, poor intake, hypotension. 2. Acute NSTEMI with severe cardiomyopathy that is new to pt. Cardiology following. Remains on heparin drip. 3. History of pulmonary embolus BNP elevated at 2094 4. Metabolic encephalopathy with underlying dementia started on dementia drugs 3 months ago, now with worsening mentation. Likely from combination of narcotics , renal failure. 5. Consult Dr. Alaniz for dialysis access placement possible need for dialysis for altered mental status. 6. Debilitation PT/OT storm [facility] pt spouse regarding risks, benefits of initiating dialysis including but not limited to a stroke, ND, hypotension, bleeding, infection, and permanent loss of kidney function. Will place tunneled catheter today and continue to monitor renal function and assess mental status. Pt spouse agreed to proceed.
[2017-07-26 11:06] LABS: Urine Sodium 79 mmol/L (Not Establ.)
--- NOTE | 2017-07-26 13:12 | NURSING ---
verbal report given to surgical nurse
[2017-07-26] MEDS: Cefazolin 2 GM in 0.9% Normal Saline 100 ML IV (15:15)
[2017-07-26] MEDS: Heparin 10,000 UNITS/10 ML Vial 10000 UNITS (15:30)
[2017-07-26] MEDS: Bupivacaine 0.25% 30 ML Vial (15:38)
--- NOTE | 2017-07-26 15:49 | OP.PCM_ITS ---
Problem List (1) Acute renal failure Status: Acute Qualifiers: Acute renal failure type: unspecified Qualified Code(s): N17.9 - Acute kidney failure, unspecified Report of Operation Date of Procedure: 07/26/17 Pre-Operative Diagnosis: Acute renal failure Post-Operative Diagnosis: Same Surgery/Procedure Performed:: Right internal jugular tunneled 19 cm pre-curved palindrome catheters Description of Surgical Findings:: Timeout and informed consent was obtained. 76-year-old gentleman was taken to the operating room placed supine on the table. Because of medical risk he underwent mostly anesthetic. Ancef 2 g are given intravenously preoperatively. The right neck chest were sterilely prepped and draped. 1% lidocaine mixed 50 -50 with 0.5% Marcaine was used as a local anesthetic. Throughout the procedure total of 15 cc was used. Under ultrasound guidance local was instilled. Micropuncture needle was inserted. Micropuncture wire inserted. Then local was instilled down upon the chest wall. Exit site was selected. Skin site was incised in the 19 cm pre-curved palindrome catheter was tunneled from the chest of the neck. Then the micropuncture sheath was placed over the micropuncture wire. 035 J-wire was inserted. Fluoroscopy demonstrated good position. The tract was serially dilated. The sheath dilator was inserted. The dilator wire removed. The catheter was advanced through the sheath. The sheath was split and the catheter was positioned so the tip was at the SVC atrial junction. It aspirated easily. It was flushed with 2 cc of heparinized saline per channel. The cath was secured with interrupted 3-0 nylon. The neck site was closed with interrupted 5-0 Vicryl subdermal stitch. Steri-Strips Telfa OpSite dressing applied. And silver impregnated dressing was placed at the catheter exit site. Blood loss was minimal. He tolerated procedure well. No specimens. No drains. He was taken to the recovery area in satisfactory condition. Stat portable chest x-ray is pending. Paco Alaniz M.D., F.A.C.S. Type of Anesthesia:: Local MAC Anesthesiologist: Trent Marrero
[2017-07-26] MEDS: 0.9% Normal Saline 1,000 ML 75 ML IV (16:46)
--- NOTE | 2017-07-26 17:14 | RAD_ITS ---
STUDY: X-RAY CHEST REASON FOR EXAM: Male, 76 years old. Port placement. TECHNIQUE: Single AP portable view of the chest. COMPARISON: July 22, 2017 FINDINGS: Central catheter on the right extends to the lower superior vena cava. Bilateral mid and lower lung airspace opacities. Bilateral pleural effusions. There is moderate cardiac enlargement. Normal mediastinum and jessica. Normal visualized pulmonary arteries. There is atherosclerotic tortuosity of the aortic arch and descending thoracic aorta. There is demineralization of the osseous structures. Normal visualized ribs, clavicles, and shoulders. There is no demonstrated abnormality of the visualized soft tissue structures of the upper abdomen. RAD/Chest 1 View (Portable) IMPRESSION: Bilateral infiltrates or edema and pleural effusions. Electronically Signed: Ashish Sandra MD at 17:37 EST , Service support ,
--- NOTE | 2017-07-26 18:06 | PCM.PN.HOSP ---
Patient Problems: Active and Suspected Problems Elevated troponin I level (Acute) Acute renal failure (Acute) Subjective: CC: Troponin elevation, worsening KARINE This is a 76 y/o M who presented on 07/22/17 with decreased oral intake, dyspnea with exertion, decreased energy malaise. The patient is confused, his has low urine output his renal , to undergo dialysis catheter placement for possible hemodialysis. Vitals/I&O's: Vital Signs Temp Pulse Resp BP Pulse Ox 97.9 F 99 16 132/87 H 98 07/26/17 17:34 07/26/17 17:34 07/26/17 17:34 07/26/17 17:34 07/26/17 17:34 Oxygen Flow Rate 2 Oxygen Delivery Method Nasal Cannula Weight: 87.4 kg Body Mass Index (BMI) 26.9 Intake and Output for Last 24 Hours 07/24/17 07/25/17 07/26/17 23:59 23:59 23:59 Intake Total 2580 / 2580 2760.1 / 2760.1 955 / 955 Output Total 345 / 345 850 / 850 850 / 850 Balance 2235 / 2235 1910.1 / 1910.1 105 / 105 General: Confused, Lethargic Oral: Moist Mucosa Neck: Supple, No JVD Lungs: Clear to auscultation, No wheeze Cardiovascular: Regular rate, Normal S1, Normal S2 Abdomen: Bowel Sounds Present, Soft, Non Tender, Non-Distended Extremities: No edema Laboratory Results 07/25/17 18:57: Sodium 141, Potassium 4.6, Chloride 108 H, Carbon Dioxide 19.0 L, BUN 108 H*, Creatinine 2.21 H, Estim Creat Clear Calc 30.76, Est GFR (MDRD) Af Amer 37 L, Est GFR (MDRD) Non-Af 31 L, BUN/Creatinine Ratio 48.9 H, Glucose 105, Calcium 9.0, Phosphorus 5.8 H, Albumin 2.9 L 07/25/17 18:57: Sodium Cancelled, Potassium Cancelled, Chloride Cancelled, Carbon Dioxide Cancelled, BUN Cancelled, Creatinine Cancelled, Estim Creat Clear Calc Cancelled, Est GFR (MDRD) Af Amer Cancelled, Est GFR (MDRD) Non-Af Cancelled, BUN/Creatinine Ratio Cancelled, Glucose Cancelled, Calcium Cancelled, Phosphorus Cancelled, Albumin Cancelled 07/26/17 04:52: Sodium 143, Potassium 4.4, Chloride 108 H, Carbon Dioxide 20.0 L, Anion Gap 15, BUN 102 H*, Creatinine 1.96 H, Estim Creat Clear Calc 34.68, Est GFR (MDRD) Af Amer 43 L, Est GFR (MDRD) Non-Af 36 L, BUN/Creatinine Ratio 52.0 H, Glucose 110 H, Calcium 9.0 07/26/17 04:52: APTT 52.6 H 07/26/17 04:52: WBC 10.9, RBC 4.31 L, Hgb 10.7 L, Hct 34.8 L, MCV 80.7, MCH 24.8 L, MCHC 30.7 L, RDW 16.7 H, RDW Differential 49.3 H, Plt Count 416, MPV 8.9, Immature Gran % (Auto) 0.200, Neut % (Auto) 88.4 H, Lymph % (Auto) 7.7 L, [place] % (Auto) 3.6, Eos % (Auto) 0.1, Baso % (Auto) 0.0, Absolute Neuts (auto) 9.6 H, Absolute Lymphs (auto) 0.84, Total Counted Not Reportable 07/26/17 04:52: PT 14.8, INR 1.2 07/26/17 10:30: Ur Random Sodium 79 Current Medications Al Hydroxide/Mg Hydroxide (Mylanta Ii) 30 ml PO Q6H PRN PRN PRN Reason: Gastric burning Albuterol Sulfate (Ventolin Aerosols) 2.5 mg INHALATION Q2H PRN PRN PRN Reason: dyspnea, wheezing Albuterol/Ipratropium (Duoneb) 3 ml INHALATION Q6HWA.RT [facility] Last Admin: 07/26/17 13:27 Dose: Not Given Aspirin (Ecotrin) 81 mg PO DAILY@0800 [facility] Last Admin: 07/26/17 09:38 Dose: Not Given Atorvastatin Calcium (Lipitor) 5 mg PO QHS [facility] Last Admin: 07/25/17 23:08 Dose: Not Given Donepezil HCl (Aricept) 10 mg PO DAILY [facility] Last Admin: 07/26/17 09:38 Dose: Not Given Duloxetine HCl (Cymbalta) 60 mg PO DAILY [facility] Last Admin: 07/26/17 09:38 Dose: Not Given Fentanyl (Duragesic) 25 mcg TRANSDERM. Q3D [facility] Heparin Sodium (Porcine) (Heparin Na) 0 unit IV UD PRN PRN Reason: Protocol Last Admin: 07/25/17 07:40 Dose: 1,000 units Hydralazine HCl (Apresoline) 10 mg IV Q4H PRN PRN PRN Reason: SBP > 160 Hydromorphone HCl (Hydromorphone Hcl) 0.5 mg IV Q8H PRN PRN PRN Reason: PAIN Last Admin: 07/26/17 04:43 Dose: 0.5 mg Heparin Sodium/Dextrose () 25,000 units in 250 mls @ 12 mls/hr IV .[id number] [facility]; As Directed PRN Reason: Protocol Last Admin: 07/25/17 13:18 Dose: 10 mls/hr Sodium Chloride () 1,000 mls @ 75 mls/hr IV .[id number] [facility] Last Admin: 07/26/17 16:46 Dose: 75 mls/hr Magnesium Hydroxide (Milk Of Magnesia) 30 ml PO DAILY PRN PRN Reason: Constipation Memantine (Namenda) 10 mg PO BID [facility] Last Admin: 07/26/17 09:38 Dose: Not Given Metoprolol Succinate (Toprol Xl (Beta Ceci)) 25 mg PO BID [facility] Last Admin: 07/26/17 09:39 Dose: Not Given Nitroglycerin (Nitrostat) 0.4 mg SUBLINGUAL Q5M PRN PRN Reason: CHEST PAIN Ondansetron HCl (Zofran) 4 mg IV Q8H PRN PRN PRN Reason: NAUSEA Oxycodone HCl (Oxyir) 10 mg PO Q4H PRN PRN PRN Reason: SEVERE PAIN (6-10/10) Last Admin: 07/24/17 19:20 Dose: 10 mg Oxycodone HCl (Oxycontin) 20 mg PO BID [facility] Last Admin: 07/26/17 09:39 Dose: Not Given Pantoprazole Sodium (Protonix) 40 mg PO DAILY [facility] Last Admin: 07/26/17 09:39 Dose: Not Given Promethazine HCl (Phenergan (Ll)) 12.5 mg IV Q6H PRN PRN PRN Reason: NAUSEA/VOMITING Sodium Chloride () 5 - 30 ml IV UD PRN PRN Reason: SALINE FLUSH Last Admin: 07/25/17 07:40 Dose: 10 ml Assessment/Plan Active and Suspected Problems Elevated troponin I level (Acute) Acute renal failure (Acute) 1. Troponin elevation consistent with NSTEMI ; continue cardioprotective medications . 2. Cardiomyopathy likely ischemic. we will Place him on appropriate cardioprotective medications. 3. Acute kidney injury; renal parameters improved today. 3. history of diastolic heart failure , he is clinically compensated we will monitor him closely. 4. Acute change in mental status; I wonder if he is going through opiate withdrawal, he takes scheduled dose of OxyContin at home for many years but has not had descended since admission, he is on as needed Dilaudid and will place him on a fentanyl patch. 5. Chronic pain syndrome with possible opiate withdrawal; we will place him on fentanyl patch and as needed Dilaudid. 6. Dementia without behavioral disturbance; supportive measures. 7. 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 8. Dyslipidemia; he is on a statin. 7. Possible angioedema ; resolved after IV steroids. 8. Prophylaxis with subcutaneous heparin. Code Visit Inpatient E&M: 96107 Subs Hosp L3
--- NOTE | 2017-07-26 18:10 | PN_ITS ---
Patient Problems: Active and Suspected Problems Elevated troponin I level (Acute) Acute renal failure (Acute) Subjective: CC: Troponin elevation, worsening KARINE This is a 76 y/o M who presented on 07/22/17 with decreased oral intake, dyspnea with exertion, decreased energy malaise. The patient is confused, his has low urine output his renal , to undergo dialysis catheter placement for possible hemodialysis. Vitals/I&O's: Vital Signs Temp Pulse Resp BP Pulse Ox 97.9 F 99 16 132/87 H 98 07/26/17 17:34 07/26/17 17:34 07/26/17 17:34 07/26/17 17:34 07/26/17 17:34 Oxygen Flow Rate 2 Oxygen Delivery Method Nasal Cannula Weight: 87.4 kg Body Mass Index (BMI) 26.9 Intake and Output for Last 24 Hours 07/24/17 07/25/17 07/26/17 23:59 23:59 23:59 Intake Total 2580 / 2580 2760.1 / 2760.1 955 / 955 Output Total 345 / 345 850 / 850 850 / 850 Balance 2235 / 2235 1910.1 / 1910.1 105 / 105 General: Confused, Lethargic Oral: Moist Mucosa Neck: Supple, No JVD Lungs: Clear to auscultation, No wheeze Cardiovascular: Regular rate, Normal S1, Normal S2 Abdomen: Bowel Sounds Present, Soft, Non Tender, Non-Distended Extremities: No edema Laboratory Results 07/25/17 18:57: Sodium 141, Potassium 4.6, Chloride 108 H, Carbon Dioxide 19.0 L , BUN 108 H*, Creatinine 2.21 H, Estim Creat Clear Calc 30.76, Est GFR (MDRD) Af Amer 37 L, Est GFR (MDRD) Non-Af 31 L, BUN/Creatinine Ratio 48.9 H, Glucose 105, Calcium 9.0, Phosphorus 5.8 H, Albumin 2.9 L 07/25/17 18:57: Sodium Cancelled, Potassium Cancelled, Chloride Cancelled, Carbon Dioxide Cancelled, BUN Cancelled, Creatinine Cancelled, Estim Creat Clear Calc Cancelled, Est GFR (MDRD) Af Amer Cancelled, Est GFR (MDRD) Non-Af Cancelled, BUN/Creatinine Ratio Cancelled, Glucose Cancelled, Calcium Cancelled , Phosphorus Cancelled, Albumin Cancelled 07/26/17 04:52: Sodium 143, Potassium 4.4, Chloride 108 H, Carbon Dioxide 20.0 L , Anion Gap 15, BUN 102 H*, Creatinine 1.96 H, Estim Creat Clear Calc 34.68, Est GFR (MDRD) Af Amer 43 L, Est GFR (MDRD) Non-Af 36 L, BUN/Creatinine Ratio 52.0 H, Glucose 110 H, Calcium 9.0 07/26/17 04:52: APTT 52.6 H 07/26/17 04:52: WBC 10.9, RBC 4.31 L, Hgb 10.7 L, Hct 34.8 L, MCV 80.7, MCH 24.8 L, MCHC 30.7 L, RDW 16.7 H, RDW Differential 49.3 H, Plt Count 416, MPV 8.9 , Immature Gran % (Auto) 0.200, Neut % (Auto) 88.4 H, Lymph % (Auto) 7.7 L, [place] % (Auto) 3.6, Eos % (Auto) 0.1, Baso % (Auto) 0.0, Absolute Neuts (auto) 9.6 H, Absolute Lymphs (auto) 0.84, Total Counted Not Reportable 07/26/17 04:52: PT 14.8, INR 1.2 07/26/17 10:30: Ur Random Sodium 79 Current Medications Al Hydroxide/Mg Hydroxide (Mylanta Ii) 30 ml PO Q6H PRN PRN PRN Reason: Gastric burning Albuterol Sulfate (Ventolin Aerosols) 2.5 mg INHALATION Q2H PRN PRN PRN Reason: dyspnea, wheezing Albuterol/Ipratropium (Duoneb) 3 ml INHALATION Q6HWA.RT [facility] Last Admin: 07/26/17 13:27 Dose: Not Given Aspirin (Ecotrin) 81 mg PO DAILY@0800 [facility] Last Admin: 07/26/17 09:38 Dose: Not Given Atorvastatin Calcium (Lipitor) 5 mg PO QHS [facility] Last Admin: 07/25/17 23:08 Dose: Not Given Donepezil HCl (Aricept) 10 mg PO DAILY [facility] Last Admin: 07/26/17 09:38 Dose: Not Given Duloxetine HCl (Cymbalta) 60 mg PO DAILY [facility] Last Admin: 07/26/17 09:38 Dose: Not Given Fentanyl (Duragesic) 25 mcg TRANSDERM. Q3D [facility] Heparin Sodium (Porcine) (Heparin Na) 0 unit IV UD PRN PRN Reason: Protocol Last Admin: 07/25/17 07:40 Dose: 1,000 units Hydralazine HCl (Apresoline) 10 mg IV Q4H PRN PRN PRN Reason: SBP > 160 Hydromorphone HCl (Hydromorphone Hcl) 0.5 mg IV Q8H PRN PRN PRN Reason: PAIN Last Admin: 07/26/17 04:43 Dose: 0.5 mg Heparin Sodium/Dextrose () 25,000 units in 250 mls @ 12 mls/hr IV .[id number] [facility] ; As Directed PRN Reason: Protocol Last Admin: 07/25/17 13:18 Dose: 10 mls/hr Sodium Chloride () 1,000 mls @ 75 mls/hr IV .[id number] [facility] Last Admin: 07/26/17 16:46 Dose: 75 mls/hr Magnesium Hydroxide (Milk Of Magnesia) 30 ml PO DAILY PRN PRN Reason: Constipation Memantine (Namenda) 10 mg PO BID [facility] Last Admin: 07/26/17 09:38 Dose: Not Given Metoprolol Succinate (Toprol Xl (Beta Ceci)) 25 mg PO BID [facility] Last Admin: 07/26/17 09:39 Dose: Not Given Nitroglycerin (Nitrostat) 0.4 mg SUBLINGUAL Q5M PRN PRN Reason: CHEST PAIN Ondansetron HCl (Zofran) 4 mg IV Q8H PRN PRN PRN Reason: NAUSEA Oxycodone HCl (Oxyir) 10 mg PO Q4H PRN PRN PRN Reason: SEVERE PAIN (6-10/10) Last Admin: 07/24/17 19:20 Dose: 10 mg Oxycodone HCl (Oxycontin) 20 mg PO BID [facility] Last Admin: 07/26/17 09:39 Dose: Not Given Pantoprazole Sodium (Protonix) 40 mg PO DAILY [facility] Last Admin: 07/26/17 09:39 Dose: Not Given Promethazine HCl (Phenergan (Ll)) 12.5 mg IV Q6H PRN PRN PRN Reason: NAUSEA/VOMITING Sodium Chloride () 5 - 30 ml IV UD PRN PRN Reason: SALINE FLUSH Last Admin: 07/25/17 07:40 Dose: 10 ml Assessment/Plan Active and Suspected Problems Elevated troponin I level (Acute) Acute renal failure (Acute) 1. Troponin elevation consistent with NSTEMI ; continue cardioprotective medications . 2. Cardiomyopathy likely ischemic. we will Place him on appropriate cardioprotective medications. 3. Acute kidney injury; renal parameters improved today. 3. history of diastolic heart failure , he is clinically compensated we will monitor him closely. 4. Acute change in mental status; I wonder if he is going through opiate withdrawal, he takes scheduled dose of OxyContin at home for many years but has not had descended since admission, he is on as needed Dilaudid and will place him on a fentanyl patch. 5. Chronic pain syndrome with possible opiate withdrawal; we will place him on fentanyl patch and as needed Dilaudid. 6. Dementia without behavioral disturbance; supportive measures. 7. 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 8. Dyslipidemia; he is on a statin. 7. Possible angioedema ; resolved after IV steroids. 8. Prophylaxis with subcutaneous heparin. Code Visit Inpatient E&M: 14190 Subs Hosp L3
--- NOTE | 2017-07-26 18:12 | PCM.PN.BLA ---
Progress Note Right IJ catheter in good position and may be used RKalin
--- NOTE | 2017-07-26 18:48 | PCM.PN.CARD ---
Subjectve: The patient remains confused. He has continued medical management. He is now status post tunnel catheter placement for initiation of dialysis. Objective: Vital Signs Temp Pulse Resp BP Pulse Ox 97.8 F 92 16 127/73 H 95 07/26/17 18:33 07/26/17 18:33 07/26/17 18:33 07/26/17 18:33 07/26/17 18:33 Oxygen Flow Rate 2 Oxygen Delivery Method Nasal Cannula Weight: 192 lb 10.944 oz Body Mass Index (BMI) 26.9 Intake and Output for Last 24 Hours 07/24/17 07/25/17 07/26/17 23:59 23:59 23:59 Intake Total 2580 / 2580 2760.1 / 2760.1 1154 / 1154 Output Total 345 / 345 850 / 850 950 / 950 Balance 2235 / 2235 1910.1 / 1910.1 204 / 204 General: Disoriented Neck: Positive JVD Lungs: Diminished Demond Bases Cardiovascular: Regular Rhythm, Premature Ectopic Beats, Normal S1, Normal S2 Abdomen: Bowel Sounds Present, Soft Extremities: Mild RLE Edema, Mild LLE Edema 07/25/17 18:57: Sodium 141, Potassium 4.6, Chloride 108 H, Carbon Dioxide 19.0 L, BUN 108 H*, Creatinine 2.21 H, Est GFR (MDRD) Af Amer 37 L, Est GFR (MDRD) Non-Af 31 L, BUN/Creatinine Ratio 48.9 H, Glucose 105, Calcium 9.0, Phosphorus 5.8 H 07/25/17 18:57: Sodium Cancelled, Potassium Cancelled, Chloride Cancelled, Carbon Dioxide Cancelled, BUN Cancelled, Creatinine Cancelled, Est GFR (MDRD) Af Amer Cancelled, Est GFR (MDRD) Non-Af Cancelled, BUN/Creatinine Ratio Cancelled, Glucose Cancelled, Calcium Cancelled, Phosphorus Cancelled 07/26/17 04:52: Sodium 143, Potassium 4.4, Chloride 108 H, Carbon Dioxide 20.0 L, Anion Gap 15, BUN 102 H*, Creatinine 1.96 H, Est GFR (MDRD) Af Amer 43 L, Est GFR (MDRD) Non-Af 36 L, BUN/Creatinine Ratio 52.0 H, Glucose 110 H, Calcium 9.0 07/26/17 04:52: APTT 52.6 H 07/26/17 04:52: WBC 10.9, RBC 4.31 L, Hgb 10.7 L, Hct 34.8 L, MCV 80.7, MCH 24.8 L, MCHC 30.7 L, RDW 16.7 H, RDW Differential 49.3 H, Plt Count 416, MPV 8.9, Immature Gran % (Auto) 0.200, Neut % (Auto) 88.4 H, Lymph % (Auto) 7.7 L, [place] % (Auto) 3.6, Eos % (Auto) 0.1, Baso % (Auto) 0.0, Absolute Neuts (auto) 9.6 H, Total Counted Not Reportable 07/26/17 04:52: PT 14.8, INR 1.2 Rhythm: Sinus rhythm Assessment/Plan 1. Non-ST segment elevation AR The patient has continued to be followed. He has undergone noninvasive studies. He does have the appearance of underlying cardiomyopathy. There is a concern whether this is ischemic or nonischemic mediated. Has been started on medical management. This is included aspirin, beta blockers, and lipid-lowering agents. He has not been on JANINE inhibitors or ARB secondary to his ongoing renal insufficiency. However, due to his confusion and concern of possible aspiration, he is unable to take oral medications. Thus, his medications may need to altered to topical or IV medications. He may eventually need further evaluation with noninvasive or invasive studies. However this may depend upon his underlying mental status as well as his other medical issues including his renal insufficiency. 2. Cardiomyopathy As appear to have an underlying cardiomyopathy. His LV systolic function is markedly depressed according to his echocardiographic studies. Again the etiology is unclear as noted above. He will continue medical management. His medications will be adjusted based upon his ability to tolerate them from the standpoint of vital signs, renal function, etc., as noted above. 3. Hypertension He apparently has a history of hypertension. He will continue medical therapy as deemed appropriate and able. 4. Renal insufficiency He does have the appearance of renal insufficiency. Now status post tunnel catheter placement for dialysis therapy. Hopefully if the patient initiates dialysis, and his BUN levels decreased, he may have improvement in his underlying mental status. 5. Dementia He does have a history of dementia. He appears to have been noted to be confused. Again this impacts his ongoing evaluation and care. This note was generated with Dragon dictation software. It may contain incorrect words, spelling, and punctuation that were not noted in checking the note before signing.
--- NOTE | 2017-07-26 18:51 | PN.CARD_ITS ---
Subjectve: The patient remains confused. He has continued medical management. He is now status post tunnel catheter placement for initiation of dialysis. Objective: Vital Signs Temp Pulse Resp BP Pulse Ox 97.8 F 92 16 127/73 H 95 07/26/17 18:33 07/26/17 18:33 07/26/17 18:33 07/26/17 18:33 07/26/17 18:33 Oxygen Flow Rate 2 Oxygen Delivery Method Nasal Cannula Weight: 192 lb 10.944 oz Body Mass Index (BMI) 26.9 Intake and Output for Last 24 Hours 07/24/17 07/25/17 07/26/17 23:59 23:59 23:59 Intake Total 2580 / 2580 2760.1 / 2760.1 1154 / 1154 Output Total 345 / 345 850 / 850 950 / 950 Balance 2235 / 2235 1910.1 / 1910.1 204 / 204 General: Disoriented Neck: Positive JVD Lungs: Diminished Demond Bases Cardiovascular: Regular Rhythm, Premature Ectopic Beats, Normal S1, Normal S2 Abdomen: Bowel Sounds Present, Soft Extremities: Mild RLE Edema, Mild LLE Edema 07/25/17 18:57: Sodium 141, Potassium 4.6, Chloride 108 H, Carbon Dioxide 19.0 L , BUN 108 H*, Creatinine 2.21 H, Est GFR (MDRD) Af Amer 37 L, Est GFR (MDRD) Non -Af 31 L, BUN/Creatinine Ratio 48.9 H, Glucose 105, Calcium 9.0, Phosphorus 5.8 H 07/25/17 18:57: Sodium Cancelled, Potassium Cancelled, Chloride Cancelled, Carbon Dioxide Cancelled, BUN Cancelled, Creatinine Cancelled, Est GFR (MDRD) Af Amer Cancelled, Est GFR (MDRD) Non-Af Cancelled, BUN/Creatinine Ratio Cancelled, Glucose Cancelled, Calcium Cancelled, Phosphorus Cancelled 07/26/17 04:52: Sodium 143, Potassium 4.4, Chloride 108 H, Carbon Dioxide 20.0 L , Anion Gap 15, BUN 102 H*, Creatinine 1.96 H, Est GFR (MDRD) Af Amer 43 L, Est GFR (MDRD) Non-Af 36 L, BUN/Creatinine Ratio 52.0 H, Glucose 110 H, Calcium 9.0 07/26/17 04:52: APTT 52.6 H 07/26/17 04:52: WBC 10.9, RBC 4.31 L, Hgb 10.7 L, Hct 34.8 L, MCV 80.7, MCH 24.8 L, MCHC 30.7 L, RDW 16.7 H, RDW Differential 49.3 H, Plt Count 416, MPV 8.9 , Immature Gran % (Auto) 0.200, Neut % (Auto) 88.4 H, Lymph % (Auto) 7.7 L, [place] % (Auto) 3.6, Eos % (Auto) 0.1, Baso % (Auto) 0.0, Absolute Neuts (auto) 9.6 H, Total Counted Not Reportable 07/26/17 04:52: PT 14.8, INR 1.2 Rhythm: Sinus rhythm Assessment/Plan 1. Non-ST segment elevation NV The patient has continued to be followed. He has undergone noninvasive studies. He does have the appearance of underlying cardiomyopathy. There is a concern whether this is ischemic or nonischemic mediated. Has been started on medical management. This is included aspirin, beta blockers , and lipid-lowering agents. He has not been on JANINE inhibitors or ARB secondary to his ongoing renal insufficiency. However, due to his confusion and concern of possible aspiration, he is unable to take oral medications. Thus, his medications may need to altered to topical or IV medications. He may eventually need further evaluation with noninvasive or invasive studies. However this may depend upon his underlying mental status as well as his other medical issues including his renal insufficiency. 2. Cardiomyopathy As appear to have an underlying cardiomyopathy. His LV systolic function is markedly depressed according to his echocardiographic studies. Again the etiology is unclear as noted above. He will continue medical management. His medications will be adjusted based upon his ability to tolerate them from the standpoint of vital signs, renal function, etc., as noted above. 3. Hypertension He apparently has a history of hypertension. He will continue medical therapy as deemed appropriate and able. 4. Renal insufficiency He does have the appearance of renal insufficiency. Now status post tunnel catheter placement for dialysis therapy. Hopefully if the patient initiates dialysis, and his BUN levels decreased, he may have improvement in his underlying mental status. 5. Dementia He does have a history of dementia. He appears to have been noted to be confused. Again this impacts his ongoing evaluation and care. This note was generated with Dragon dictation software. It may contain incorrect words, spelling, and punctuation that were not noted in checking the note before signing.
[2017-07-26] MEDS: fentaNYL 25 MCG Patch TRANSDERM. (19:24)
--- NOTE | 2017-07-26 20:39 | NURSING ---
heparin gtt restarted at previous rate of 10 ml/hr at this time per Dr Schulz's order
[2017-07-26] MEDS: Nitroglycerin Oint 1 INCH PACKET 0.5 INCH TRANSDERM. (21:34)
[2017-07-27] VITALS (19 sets, daily range): BP systolic 122–129; BP diastolic 67–96; PULSE 71–121; RESP 16–24; TEMP 36.6–36.9; O2SAT 94–97; BMI 26.9
[2017-07-27] MEDS: Metoprolol Tartrate 5 MG/5 ML Vial IV ×3 (00:37→11:11)
[2017-07-27] MEDS: HEPARIN/D5w 25,000 UNITS 25,000 UNITS/250 ML IV.SOLN. 10 UNITS IV (00:59)
[2017-07-27] MEDS: 0.9% Normal Saline 1,000 ML 75 ML IV (04:31)
[2017-07-27] MEDS: 0.9% NaCl Peripheral Flush Adult/Peds IV (05:00)
[2017-07-27] MEDS: Nitroglycerin Oint 1 INCH PACKET 0.5 INCH TRANSDERM. ×3 (05:00→22:17)
[2017-07-27 06:02] LABS: Partial Thromboplast Time 55.9 Seconds (24.1-36.2)
[2017-07-27 06:25] LABS: Anion Gap 12 (5-15); BUN 84 mg/dL (7-18); BUN/Creat Ratio 65.1 RATIO (10-20); Calcium,Total 8.9 mg/dL (8.5-10.1); Chloride 114 mmol/L (98-107); Creatinine, Serum 1.29 mg/dL (0.70-1.30); EST Glomerular Filtration Rate 58 mL/min (>60); Est Glom Filt Rate - Afr Amer 70 mL/min (>60); Glucose 118 mg/dL (74-106); Potassium 3.9 mmol/L (3.5-5.1); Sodium Level 147 mmol/L (136-145)
[2017-07-27] MEDS: Ipratropium/Albuterol Sulfate 3 ML AMPUL.NEB INHALATION ×3 (06:52→19:18)
[2017-07-27] MEDS: 0.45% Normal Saline 1,000 ML 75 ML IV (11:07)
[2017-07-27] MEDS: Aspirin E.C. 81 MG Tablet PO (11:08)
[2017-07-27] MEDS: Pantoprazole Sodium 40 MG Tablet PO (11:09)
[2017-07-27] MEDS: Donepezil HCl 10 MG Tablet PO (11:09)
[2017-07-27] MEDS: Memantine Hydrochloride 10 MG Tablet PO ×2 (11:09→22:16)
[2017-07-27] MEDS: DULoxetine Hcl 60 MG Capsule PO (11:09)
[2017-07-27] MEDS: HYDROmorphone HCL 0.5 MG/0.5 ML SYRINGE IV (13:35)
--- NOTE | 2017-07-27 14:20 | PCM.PN.REN ---
Patient Problems: Active and Suspected Problems Elevated troponin I level (Acute) Acute renal failure (Acute) Subjective: more awake, responsive but slow to react. denies SOB, chest pain. +thirst. Denies nausea, vomiting. TDC placed last night in anticipation for possible dialysis if renal fxn worsened. Creatinine improved to 1.2 today. - Physical Exam General: Alert, Confused Oral: Moist Mucosa Neck: JVD, Bilateral Lungs: Clear to auscultation - poor inspiration Cardiovascular: Regular rate, No rub noted Abdomen: Bowel Sounds Present, Soft, Non Tender, Non-Distended Extremities: Edema - mild Musculoskeletal: Muscle Wasting, - - generalized weakness, tremor Neurological: Slurred Speech, - - generalized weakness Psych/Mental Status: Flat Affect, Depressed, - - more awake, slow to respond, confused Vital Signs Temp Pulse Resp BP Pulse Ox 98.2 F 71 20 H 129/96 H 95 07/27/17 10:32 07/27/17 13:31 07/27/17 13:19 07/27/17 13:31 07/27/17 10:32 Oxygen Flow Rate 2 Oxygen Delivery Method Room Air Weight: 87.4 kg Body Mass Index (BMI) 26.9 Intake and Output for Last 24 Hours 07/25/17 07/26/17 07/27/17 23:59 23:59 23:59 Intake Total 2760.1 / 2760.1 1694 / 1694 948 / 948 Output Total 850 / 850 1425 / 1425 750 / 750 Balance 1910.1 / 1910.1 269 / 269 198 / 198 Laboratory Tests Past 24 Hrs 07/27/17 07/27/17 05:30 05:30 APTT 55.9 H Sodium 147 H Potassium 3.9 Chloride 114 H Carbon Dioxide 21.0 Anion Gap 12 BUN 84 H Creatinine 1.29 Estim Creat Clear Calc 52.70 Est GFR (MDRD) Af Amer 70 Est GFR (MDRD) Non-Af 58 L BUN/Creatinine Ratio 65.1 H Glucose 118 H Calcium 8.9 Assessment/Plan Active and Suspected Problems Elevated troponin I level (Acute) Acute renal failure (Acute) 1. KARINE with baseline creatinine 0.9-1.0 in Jun 20172016. Renal function continues to improve with Creatinine at 1.2 today with improved urine output. Appears more awake, slow to respond. Remains debilitated. Decreased iv fluids. Hold on dialysis today since renal fxn improved. 2. Acute NSTEMI with severe cardiomyopathy, biventricular failure. Cardiology following. High risk of sudden cardiac with poor cardiac function. Pt poor candidate for intervention at this time, high risk for contrast induced renal failure. 3. Remote history of pulmonary embolus which may be contributing to his RHF. consider venous US BLE 4. Metabolic encephalopathy with underlying dementia. mental status somewhat improved. Continue to monitor. History of tremors, decline in health past few months, more so the past 2 weeks prior to admission even when renal function was normal. Consider Parkinsons in differential. 5. Hypernatremia change to D5W. 6. Severe debilitation with aspiration risk. Consider hospice, DNR CCA if pt overall condition does not improve with therapy. Prognosis poor with poor quality of life due to severe cardiomyopathy, risk of sudden cardiac , chronic pain, debilitation with dementia. Over 35min discussion with pt and dtr at bedside. Discussed with cardiology, hospitalist.
--- NOTE | 2017-07-27 16:15 | PCM.PN.CARD ---
Subjectve: The patient remains with waxing and waning mental status, waxing and waning lethargy, involuntary movements, with no acute complaint of ongoing chest discomfort or worsening shortness of breath or dyspnea. Objective: Vital Signs Temp Pulse Resp BP Pulse Ox 98.4 F 86 16 129/96 H 95 07/27/17 15:51 07/27/17 15:51 07/27/17 15:51 07/27/17 15:51 07/27/17 15:51 Oxygen Flow Rate 2 Oxygen Delivery Method Nasal Cannula Weight: 192 lb 10.944 oz Body Mass Index (BMI) 26.9 Intake and Output for Last 24 Hours 07/25/17 07/26/17 07/27/17 23:59 23:59 23:59 Intake Total 2760.1 / 2760.1 1694 / 1694 948 / 948 Output Total 850 / 850 1425 / 1425 750 / 750 Balance 1910.1 / 1910.1 269 / 269 198 / 198 General: Lethargic, Disoriented Lungs: Diminished Demond Bases Cardiovascular: Regular Rhythm, Premature Ectopic Beats, Normal S1, Normal S2 Abdomen: Bowel Sounds Present, Soft, Non Tender Extremities: Mild RLE Edema, Mild LLE Edema 07/27/17 05:30: Sodium 147 H, Potassium 3.9, Chloride 114 H, Carbon Dioxide 21.0, Anion Gap 12, BUN 84 H, Creatinine 1.29, Est GFR (MDRD) Af Amer 70, Est GFR (MDRD) Non-Af 58 L, BUN/Creatinine Ratio 65.1 H, Glucose 118 H, Calcium 8.9 07/27/17 05:30: APTT 55.9 H Rhythm: Sinus rhythm; PVCs Assessment/Plan 1. Non-ST segment elevation MO The patient has continued to be followed. He has undergone noninvasive studies. He does have the appearance of underlying cardiomyopathy. There is a concern whether this is ischemic or nonischemic mediated. Has been started on medical management. This is included aspirin, beta blockers, and lipid-lowering agents. He has not been on JANINE inhibitors or ARB secondary to his ongoing renal insufficiency. He has passed his speech therapy evaluation. Thus he will be placed back on oral beta-blockers and oral lipid-lowering agents. He may eventually need further evaluation with noninvasive or invasive studies. However this may depend upon his underlying mental status as well as his other medical issues including his renal insufficiency. 2. Cardiomyopathy As appear to have an underlying cardiomyopathy. His LV systolic function is markedly depressed according to his echocardiographic studies. Again the etiology is unclear as noted above. He will continue medical management. His medications will be adjusted based upon his ability to tolerate them from the standpoint of vital signs, renal function, etc., as noted above. 3. Hypertension He apparently has a history of hypertension. He will continue medical therapy as deemed appropriate and able. 4. Renal insufficiency He does have the appearance of renal insufficiency. Now status post tunnel catheter placement for dialysis therapy. His BUN remains elevated but his creatinine has improved. He will may require dialysis therapy. 5. Dementia He does have a history of dementia. He appears to have been noted to be confused. Again this impacts his ongoing evaluation and care. The patient's case was discussed with the patient as best as possible, his spouse, and his clinical informatics specialist who was present at the time. A cardiovascular standpoint they were informed that he would require continued cardiac medical therapy and was not, at this time, an ideal candidate for additional noninvasive or invasive evaluation based upon his aforementioned concerns with respect to his mental status changes, involuntary movements, fluctuating renal status, etc. His spouse acknowledged this information. The patient's case was also discussed with Dr. Delgado of nephrology. This note was generated with [employer] dictation software. It may contain incorrect words, spelling, and punctuation that were not noted in checking the note before signing.
--- NOTE | 2017-07-27 16:18 | PN.CARD_ITS ---
Subjectve: The patient remains with waxing and waning mental status, waxing and waning lethargy, involuntary movements, with no acute complaint of ongoing chest discomfort or worsening shortness of breath or dyspnea. Objective: Vital Signs Temp Pulse Resp BP Pulse Ox 98.4 F 86 16 129/96 H 95 07/27/17 15:51 07/27/17 15:51 07/27/17 15:51 07/27/17 15:51 07/27/17 15:51 Oxygen Flow Rate 2 Oxygen Delivery Method Nasal Cannula Weight: 192 lb 10.944 oz Body Mass Index (BMI) 26.9 Intake and Output for Last 24 Hours 07/25/17 07/26/17 07/27/17 23:59 23:59 23:59 Intake Total 2760.1 / 2760.1 1694 / 1694 948 / 948 Output Total 850 / 850 1425 / 1425 750 / 750 Balance 1910.1 / 1910.1 269 / 269 198 / 198 General: Lethargic, Disoriented Lungs: Diminished Demond Bases Cardiovascular: Regular Rhythm, Premature Ectopic Beats, Normal S1, Normal S2 Abdomen: Bowel Sounds Present, Soft, Non Tender Extremities: Mild RLE Edema, Mild LLE Edema 07/27/17 05:30: Sodium 147 H, Potassium 3.9, Chloride 114 H, Carbon Dioxide 21.0 , Anion Gap 12, BUN 84 H, Creatinine 1.29, Est GFR (MDRD) Af Amer 70, Est GFR ( MDRD) Non-Af 58 L, BUN/Creatinine Ratio 65.1 H, Glucose 118 H, Calcium 8.9 07/27/17 05:30: APTT 55.9 H Rhythm: Sinus rhythm; PVCs Assessment/Plan 1. Non-ST segment elevation SC The patient has continued to be followed. He has undergone noninvasive studies. He does have the appearance of underlying cardiomyopathy. There is a concern whether this is ischemic or nonischemic mediated. Has been started on medical management. This is included aspirin, beta blockers , and lipid-lowering agents. He has not been on JANINE inhibitors or ARB secondary to his ongoing renal insufficiency. He has passed his speech therapy evaluation. Thus he will be placed back on oral beta-blockers and oral lipid-lowering agents. He may eventually need further evaluation with noninvasive or invasive studies. However this may depend upon his underlying mental status as well as his other medical issues including his renal insufficiency. 2. Cardiomyopathy As appear to have an underlying cardiomyopathy. His LV systolic function is markedly depressed according to his echocardiographic studies. Again the etiology is unclear as noted above. He will continue medical management. His medications will be adjusted based upon his ability to tolerate them from the standpoint of vital signs, renal function, etc., as noted above. 3. Hypertension He apparently has a history of hypertension. He will continue medical therapy as deemed appropriate and able. 4. Renal insufficiency He does have the appearance of renal insufficiency. Now status post tunnel catheter placement for dialysis therapy. His BUN remains elevated but his creatinine has improved. He will may require dialysis therapy. 5. Dementia He does have a history of dementia. He appears to have been noted to be confused. Again this impacts his ongoing evaluation and care. The patient's case was discussed with the patient as best as possible, his spouse, and his defense analyst who was present at the time. A cardiovascular standpoint they were informed that he would require continued cardiac medical therapy and was not, at this time, an ideal candidate for additional noninvasive or invasive evaluation based upon his aforementioned concerns with respect to his mental status changes, involuntary movements, fluctuating renal status, etc. His spouse acknowledged this information. The patient's case was also discussed with Dr. Delgado of nephrology. This note was generated with [employer] dictation software. It may contain incorrect words, spelling, and punctuation that were not noted in checking the note before signing.
--- NOTE | 2017-07-27 16:34 | PCM.PN.HOSP ---
Patient Problems: Active and Suspected Problems Elevated troponin I level (Acute) Acute renal failure (Acute) Subjective: CC: Troponin elevation, worsening KARINE This is a 76 y/o M with history of dementia who presented on 07/22/17 with decreased oral intake, dyspnea with exertion, decreased energy malaise and confusion. Patient was subsequently found to have elevated troponin consistent with an NSTEMI, he had worsening renal dysfunction which has improved with IV fluids. Vitals/I&O's: Vital Signs Temp Pulse Resp BP Pulse Ox 98.4 F 86 16 129/96 H 95 07/27/17 15:51 07/27/17 15:51 07/27/17 15:51 07/27/17 15:51 07/27/17 15:51 Oxygen Flow Rate 2 Oxygen Delivery Method Nasal Cannula Weight: 87.4 kg Body Mass Index (BMI) 26.9 Intake and Output for Last 24 Hours 07/25/17 07/26/17 07/27/17 23:59 23:59 23:59 Intake Total 2760.1 / 2760.1 1694 / 1694 948 / 948 Output Total 850 / 850 1425 / 1425 750 / 750 Balance 1910.1 / 1910.1 269 / 269 198 / 198 General: Alert, Oriented x3 HEENT: Atraumatic Neck: Supple, No JVD Lungs: Clear to auscultation Cardiovascular: Regular rate, Normal S1, Normal S2 Abdomen: Bowel Sounds Present, Soft Extremities: No clubbing Skin: No rashes Neurological: Cranial nerves II-XII grossly intact, Motor Exam 5/5 strength throughout Psych/Mental Status: Normal Affect Laboratory Results 07/27/17 05:30: Sodium 147 H, Potassium 3.9, Chloride 114 H, Carbon Dioxide 21.0, Anion Gap 12, BUN 84 H, Creatinine 1.29, Estim Creat Clear Calc 52.70, Est GFR (MDRD) Af Amer 70, Est GFR (MDRD) Non-Af 58 L, BUN/Creatinine Ratio 65.1 H, Glucose 118 H, Calcium 8.9 07/27/17 05:30: APTT 55.9 H Current Medications Al Hydroxide/Mg Hydroxide (Mylanta Ii) 30 ml PO Q6H PRN PRN PRN Reason: Gastric burning Albuterol Sulfate (Ventolin Aerosols) 2.5 mg INHALATION Q2H PRN PRN PRN Reason: dyspnea, wheezing Albuterol/Ipratropium (Duoneb) 3 ml INHALATION Q6HWA.RT [facility] Last Admin: 07/27/17 13:19 Dose: 3 ml Aspirin (Ecotrin) 81 mg PO DAILY@0800 [facility] Last Admin: 07/27/17 11:08 Dose: 81 mg Atorvastatin Calcium (Lipitor) 40 mg PO QHS [facility] Carvedilol (Coreg) 3.125 mg PO BID [facility] Donepezil HCl (Aricept) 10 mg PO DAILY [facility] Last Admin: 07/27/17 11:09 Dose: 10 mg Duloxetine HCl (Cymbalta) 60 mg PO DAILY [facility] Last Admin: 07/27/17 11:09 Dose: 60 mg Fentanyl (Duragesic) 25 mcg TRANSDERM. Q3D [facility] Last Admin: 07/26/17 19:24 Dose: 25 mcg Heparin Sodium (Porcine) (Heparin Na) 0 unit IV UD PRN PRN Reason: Protocol Last Admin: 07/25/17 07:40 Dose: 1,000 units Hydralazine HCl (Apresoline) 10 mg IV Q4H PRN PRN PRN Reason: SBP > 160 Hydromorphone HCl (Hydromorphone Hcl) 0.5 mg IV Q8H PRN PRN PRN Reason: PAIN Last Admin: 07/27/17 13:35 Dose: 0.5 mg Heparin Sodium/Dextrose () 25,000 units in 250 mls @ 12 mls/hr IV .[id number] [facility]; As Directed PRN Reason: Protocol Last Admin: 07/27/17 00:59 Dose: 10 mls/hr Dextrose () 1,000 mls @ 50 mls/hr IV .Q20H [facility] Last Admin: 07/27/17 14:47 Dose: 50 mls/hr Magnesium Hydroxide (Milk Of Magnesia) 30 ml PO DAILY PRN PRN Reason: Constipation Memantine (Namenda) 10 mg PO BID [facility] Last Admin: 07/27/17 11:09 Dose: 10 mg Nitroglycerin (Nitrostat) 0.4 mg SUBLINGUAL Q5M PRN PRN Reason: CHEST PAIN Nitroglycerin (Nitrobid) 0.5 inch TRANSDERM. Q8 [facility] Last Admin: 07/27/17 13:31 Dose: 0.5 inch Ondansetron HCl (Zofran) 4 mg IV Q8H PRN PRN PRN Reason: NAUSEA Oxycodone HCl (Oxyir) 10 mg PO Q4H PRN PRN PRN Reason: SEVERE PAIN (6-10/10) Last Admin: 07/24/17 19:20 Dose: 10 mg Oxycodone HCl (Oxycontin) 20 mg PO BID [facility] Last Admin: 07/27/17 11:09 Dose: Not Given Pantoprazole Sodium (Protonix) 40 mg PO DAILY [facility] Last Admin: 07/27/17 11:09 Dose: 40 mg Promethazine HCl (Phenergan (Ll)) 12.5 mg IV Q6H PRN PRN PRN Reason: NAUSEA/VOMITING Sodium Chloride () 5 - 30 ml IV UD PRN PRN Reason: SALINE FLUSH Last Admin: 07/27/17 05:00 Dose: 10 ml Assessment/Plan Active and Suspected Problems Elevated troponin I level (Acute) Acute renal failure (Acute) 1. Troponin elevation consistent with NSTEMI ; continue cardioprotective medications . 2. Cardiomyopathy likely ischemic; he is ordered appropriate cardioprotective medications but he cannot swallow due to decreased mental status. 3. Acute kidney injury; renal parameters improving even though he had a temporal dialysis catheter placed yesterday. 4. Acute change in mental status; likely opiate withdrawal, he takes scheduled dose of OxyContin at home for many years but did not get this since admission, he is on as needed Dilaudid and has been started on Fentanyl patch. 5. Chronic pain syndrome with suspected opiate withdrawal; started on fentanyl patch and as needed Dilaudid. 6. Dementia ; supportive measures. 7. 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 8. Dyslipidemia; he is on a statin. 9. DVT Prophylaxis ; he is on heparin drip for #1.
--- NOTE | 2017-07-27 16:37 | PN_ITS ---
Patient Problems: Active and Suspected Problems Elevated troponin I level (Acute) Acute renal failure (Acute) Subjective: CC: Troponin elevation, worsening KARINE This is a 76 y/o M with history of dementia who presented on 07/22/17 with decreased oral intake, dyspnea with exertion, decreased energy malaise and confusion. Patient was subsequently found to have elevated troponin consistent with an NSTEMI, he had worsening renal dysfunction which has improved with IV fluids. Vitals/I&O's: Vital Signs Temp Pulse Resp BP Pulse Ox 98.4 F 86 16 129/96 H 95 07/27/17 15:51 07/27/17 15:51 07/27/17 15:51 07/27/17 15:51 07/27/17 15:51 Oxygen Flow Rate 2 Oxygen Delivery Method Nasal Cannula Weight: 87.4 kg Body Mass Index (BMI) 26.9 Intake and Output for Last 24 Hours 07/25/17 07/26/17 07/27/17 23:59 23:59 23:59 Intake Total 2760.1 / 2760.1 1694 / 1694 948 / 948 Output Total 850 / 850 1425 / 1425 750 / 750 Balance 1910.1 / 1910.1 269 / 269 198 / 198 General: Alert, Oriented x3 HEENT: Atraumatic Neck: Supple, No JVD Lungs: Clear to auscultation Cardiovascular: Regular rate, Normal S1, Normal S2 Abdomen: Bowel Sounds Present, Soft Extremities: No clubbing Skin: No rashes Neurological: Cranial nerves II-XII grossly intact, Motor Exam 5/5 strength throughout Psych/Mental Status: Normal Affect Laboratory Results 07/27/17 05:30: Sodium 147 H, Potassium 3.9, Chloride 114 H, Carbon Dioxide 21.0 , Anion Gap 12, BUN 84 H, Creatinine 1.29, Estim Creat Clear Calc 52.70, Est GFR (MDRD) Af Amer 70, Est GFR (MDRD) Non-Af 58 L, BUN/Creatinine Ratio 65.1 H, Glucose 118 H, Calcium 8.9 07/27/17 05:30: APTT 55.9 H Current Medications Al Hydroxide/Mg Hydroxide (Mylanta Ii) 30 ml PO Q6H PRN PRN PRN Reason: Gastric burning Albuterol Sulfate (Ventolin Aerosols) 2.5 mg INHALATION Q2H PRN PRN PRN Reason: dyspnea, wheezing Albuterol/Ipratropium (Duoneb) 3 ml INHALATION Q6HWA.RT [facility] Last Admin: 07/27/17 13:19 Dose: 3 ml Aspirin (Ecotrin) 81 mg PO DAILY@0800 [facility] Last Admin: 07/27/17 11:08 Dose: 81 mg Atorvastatin Calcium (Lipitor) 40 mg PO QHS [facility] Carvedilol (Coreg) 3.125 mg PO BID [facility] Donepezil HCl (Aricept) 10 mg PO DAILY [facility] Last Admin: 07/27/17 11:09 Dose: 10 mg Duloxetine HCl (Cymbalta) 60 mg PO DAILY [facility] Last Admin: 07/27/17 11:09 Dose: 60 mg Fentanyl (Duragesic) 25 mcg TRANSDERM. Q3D [facility] Last Admin: 07/26/17 19:24 Dose: 25 mcg Heparin Sodium (Porcine) (Heparin Na) 0 unit IV UD PRN PRN Reason: Protocol Last Admin: 07/25/17 07:40 Dose: 1,000 units Hydralazine HCl (Apresoline) 10 mg IV Q4H PRN PRN PRN Reason: SBP > 160 Hydromorphone HCl (Hydromorphone Hcl) 0.5 mg IV Q8H PRN PRN PRN Reason: PAIN Last Admin: 07/27/17 13:35 Dose: 0.5 mg Heparin Sodium/Dextrose () 25,000 units in 250 mls @ 12 mls/hr IV .[id number] [facility] ; As Directed PRN Reason: Protocol Last Admin: 07/27/17 00:59 Dose: 10 mls/hr Dextrose () 1,000 mls @ 50 mls/hr IV .Q20H [facility] Last Admin: 07/27/17 14:47 Dose: 50 mls/hr Magnesium Hydroxide (Milk Of Magnesia) 30 ml PO DAILY PRN PRN Reason: Constipation Memantine (Namenda) 10 mg PO BID [facility] Last Admin: 07/27/17 11:09 Dose: 10 mg Nitroglycerin (Nitrostat) 0.4 mg SUBLINGUAL Q5M PRN PRN Reason: CHEST PAIN Nitroglycerin (Nitrobid) 0.5 inch TRANSDERM. Q8 [facility] Last Admin: 07/27/17 13:31 Dose: 0.5 inch Ondansetron HCl (Zofran) 4 mg IV Q8H PRN PRN PRN Reason: NAUSEA Oxycodone HCl (Oxyir) 10 mg PO Q4H PRN PRN PRN Reason: SEVERE PAIN (6-10/10) Last Admin: 07/24/17 19:20 Dose: 10 mg Oxycodone HCl (Oxycontin) 20 mg PO BID [facility] Last Admin: 07/27/17 11:09 Dose: Not Given Pantoprazole Sodium (Protonix) 40 mg PO DAILY [facility] Last Admin: 07/27/17 11:09 Dose: 40 mg Promethazine HCl (Phenergan (Ll)) 12.5 mg IV Q6H PRN PRN PRN Reason: NAUSEA/VOMITING Sodium Chloride () 5 - 30 ml IV UD PRN PRN Reason: SALINE FLUSH Last Admin: 07/27/17 05:00 Dose: 10 ml Assessment/Plan Active and Suspected Problems Elevated troponin I level (Acute) Acute renal failure (Acute) 1. Troponin elevation consistent with NSTEMI ; continue cardioprotective medications . 2. Cardiomyopathy likely ischemic; he is ordered appropriate cardioprotective medications but he cannot swallow due to decreased mental status. 3. Acute kidney injury; renal parameters improving even though he had a temporal dialysis catheter placed yesterday. 4. Acute change in mental status; likely opiate withdrawal, he takes scheduled dose of OxyContin at home for many years but did not get this since admission, he is on as needed Dilaudid and has been started on Fentanyl patch. 5. Chronic pain syndrome with suspected opiate withdrawal; started on fentanyl patch and as needed Dilaudid. 6. Dementia ; supportive measures. 7. 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 8. Dyslipidemia; he is on a statin. 9. DVT Prophylaxis ; he is on heparin drip for #1.
[2017-07-27] MEDS: Atorvastatin Calcium 40 MG Tablet PO (22:16)
[2017-07-27] MEDS: Carvedilol 3.125 MG TABLET PO (22:16)
[2017-07-28] VITALS (20 sets, daily range): BP systolic 118–131; BP diastolic 66–100; PULSE 69–138; RESP 14–18; TEMP 36.5–36.8; O2SAT 92–98
[2017-07-28] MEDS: HYDROmorphone HCL 0.5 MG/0.5 ML SYRINGE IV (03:48)
[2017-07-28] MEDS: 0.9% NaCl Peripheral Flush Adult/Peds IV (03:54)
[2017-07-28] MEDS: Nitroglycerin Oint 1 INCH PACKET 0.5 INCH TRANSDERM. ×3 (05:58→22:34)
[2017-07-28 06:29] LABS: Partial Thromboplast Time 43.9 Seconds (24.1-36.2)
[2017-07-28 06:53] LABS: Anion Gap 11 (5-15); BUN 67 mg/dL (7-18); BUN/Creat Ratio 62.6 RATIO (10-20); Calcium,Total 8.5 mg/dL (8.5-10.1); Chloride 113 mmol/L (98-107); Creatinine, Serum 1.07 mg/dL (0.70-1.30); EST Glomerular Filtration Rate 71 mL/min (>60); Est Glom Filt Rate - Afr Amer 86 mL/min (>60); Estimated Creatinine Clearance 63.53 ml/min; Glucose 122 mg/dL (74-106); Potassium 3.6 mmol/L (3.5-5.1); Sodium Level 148 mmol/L (136-145)
[2017-07-28] MEDS: HEPARIN/D5w 25,000 UNITS 25,000 UNITS/250 ML IV.SOLN. 11 UNITS IV (06:58)
[2017-07-28] MEDS: Ipratropium/Albuterol Sulfate 3 ML AMPUL.NEB INHALATION ×3 (07:17→19:43)
[2017-07-28] MEDS: DULoxetine Hcl 60 MG Capsule PO (09:05)
[2017-07-28] MEDS: Carvedilol 3.125 MG TABLET PO ×2 (09:05→22:39)
[2017-07-28] MEDS: Aspirin E.C. 81 MG Tablet PO (09:05)
[2017-07-28] MEDS: Donepezil HCl 10 MG Tablet PO (09:06)
[2017-07-28] MEDS: Pantoprazole Sodium 40 MG Tablet PO (09:06)
[2017-07-28] MEDS: Memantine Hydrochloride 10 MG Tablet PO ×2 (09:06→22:40)
[2017-07-28] MEDS: Magnesium Hydroxide 30 ML UDC PO (09:14)
--- NOTE | 2017-07-28 10:19 | PCM.PN.CARD ---
Subjectve: Patient sitting in bed, status post right subclavian dialysis catheter placement. Patient is awake and answers questions yes or no, denies any chest pain or angina. Appears to have some mild dyspnea with conversation. Objective: Vital Signs Temp Pulse Resp BP Pulse Ox 98.2 F 96 18 118/68 94 07/28/17 09:27 07/28/17 09:27 07/28/17 09:27 07/28/17 09:27 07/28/17 09:27 Oxygen Flow Rate 2 Oxygen Delivery Method Nasal Cannula Weight: 192 lb 10.944 oz Body Mass Index (BMI) 26.9 Intake and Output for Last 24 Hours 07/26/17 07/27/17 07/28/17 23:59 23:59 23:59 Intake Total 1694 / 1694 1936 / 1936 378 / 378 Output Total 1425 / 1425 1445 / 1445 275 / 275 Balance 269 / 269 491 / 491 103 / 103 General: Awake, Alert, Oriented x 3 HEENT: PERRL, EOMI, Sclera Non Icteric Neck: Supple, Good ROM, No Lymph Node Enlargement Lungs: Diminished Demond Bases Cardiovascular: Regular Rhythm, Normal S1, Normal S2, No Murmurs, No Rubs, No Gallops Vascular: No Carotid Bruits, Normal Femoral Pulses, Normal Radial Pulses, Normal Dorsalis Pedal Pulse, Normal Posterior Tibial Pulses Abdomen: Bowel Sounds Present, Soft, Non Tender, No HSM, No Organomegaly Extremities: No Cyanosis, No Clubbing, Bilateral Edema +1 Neurological: No Focal Motor or Sensory Deficit 07/28/17 05:35: APTT 43.9 H 07/28/17 05:35: Sodium 148 H, Potassium 3.6, Chloride 113 H, Carbon Dioxide 24.0, Anion Gap 11, BUN 67 H, Creatinine 1.07, Est GFR (MDRD) Af Amer 86, Est GFR (MDRD) Non-Af 71, BUN/Creatinine Ratio 62.6 H, Glucose 122 H, Calcium 8.5 Rhythm: EKG: Telemetry shows sinus tachycardia with PACs and PVCs. ECHO: Stress Test: Cardiac Cath: PCI: CT Surgery: Holter monitor: EPS: PPM: CXR: Right IJ catheter in place without evidence of pneumothorax, bilateral pleural effusions appear to be worsening. Chest CT Scan: Assessment/Plan 1. LV dysfunction: Patient is a marked deterioration of his LV function from July 2017 until this admission. His EF is gone from 60% down to around 10 or 15% with severe global hypokinesis. In addition the patient had a marked increase in his BUN and creatinine however these appear much improved with IV fluid. Patient had a dialysis catheter placed but it does not appear that he requires dialysis at this time. Without a diagnostic coronary angiogram it is impossible to know whether the patient had an acute coronary event and between his 2 echocardiograms, and his degree of troponin release on this admission is out of proportion to his degree of LV dysfunction. I believe it is reasonable to consider diagnostic coronary angiogram once the patient's mental status has improved. We would need co-consent with the patient's for this given the patient's mental status changes. In addition, I would hold off on dobutamine infusion until after we have looked at the patient's coronary arteries to avoid possible ventricular arrhythmias. The patient's elevated BUN and creatinine may be a result of very poor renal perfusion due to his severe LV dysfunction. I would recommend a 1500 cc fluid restriction, and initiate Lasix 40 mg p.o. twice daily to maintain and optimize fluid status. I would not recommend Aldactone given the patient's chronic renal insufficiency. Arms given the patient's chronic renal insufficiency. I would recommend hydralazine 10 mg p.o. 3 times daily for afterload reduction in order to facilitate LV unloading. Code Visit Inpatient E&M: [id number] [place] [id number]
--- NOTE | 2017-07-28 10:33 | PN.CARD_ITS ---
Subjectve: Patient sitting in bed, status post right subclavian dialysis catheter placement. Patient is awake and answers questions yes or no, denies any chest pain or angina. Appears to have some mild dyspnea with conversation. Objective: Vital Signs Temp Pulse Resp BP Pulse Ox 98.2 F 96 18 118/68 94 07/28/17 09:27 07/28/17 09:27 07/28/17 09:27 07/28/17 09:27 07/28/17 09:27 Oxygen Flow Rate 2 Oxygen Delivery Method Nasal Cannula Weight: 192 lb 10.944 oz Body Mass Index (BMI) 26.9 Intake and Output for Last 24 Hours 07/26/17 07/27/17 07/28/17 23:59 23:59 23:59 Intake Total 1694 / 1694 1936 / 1936 378 / 378 Output Total 1425 / 1425 1445 / 1445 275 / 275 Balance 269 / 269 491 / 491 103 / 103 General: Awake, Alert, Oriented x 3 HEENT: PERRL, EOMI, Sclera Non Icteric Neck: Supple, Good ROM, No Lymph Node Enlargement Lungs: Diminished Demond Bases Cardiovascular: Regular Rhythm, Normal S1, Normal S2, No Murmurs, No Rubs, No Gallops Vascular: No Carotid Bruits, Normal Femoral Pulses, Normal Radial Pulses, Normal Dorsalis Pedal Pulse, Normal Posterior Tibial Pulses Abdomen: Bowel Sounds Present, Soft, Non Tender, No HSM, No Organomegaly Extremities: No Cyanosis, No Clubbing, Bilateral Edema +1 Neurological: No Focal Motor or Sensory Deficit 07/28/17 05:35: APTT 43.9 H 07/28/17 05:35: Sodium 148 H, Potassium 3.6, Chloride 113 H, Carbon Dioxide 24.0 , Anion Gap 11, BUN 67 H, Creatinine 1.07, Est GFR (MDRD) Af Amer 86, Est GFR ( MDRD) Non-Af 71, BUN/Creatinine Ratio 62.6 H, Glucose 122 H, Calcium 8.5 Rhythm: EKG: Telemetry shows sinus tachycardia with PACs and PVCs. ECHO: Stress Test: Cardiac Cath: PCI: CT Surgery: Holter monitor: EPS: PPM: CXR: Right IJ catheter in place without evidence of pneumothorax, bilateral pleural effusions appear to be worsening. Chest CT Scan: Assessment/Plan 1. LV dysfunction: Patient is a marked deterioration of his LV function from July 2017 until this admission. His EF is gone from 60% down to around 10 or 15% with severe global hypokinesis. In addition the patient had a marked increase in his BUN and creatinine however these appear much improved with IV fluid. Patient had a dialysis catheter placed but it does not appear that he requires dialysis at this time. Without a diagnostic coronary angiogram it is impossible to know whether the patient had an acute coronary event and between his 2 echocardiograms, and his degree of troponin release on this admission is out of proportion to his degree of LV dysfunction. I believe it is reasonable to consider diagnostic coronary angiogram once the patient's mental status has improved. We would need co-consent with the patient 's for this given the patient's mental status changes. In addition, I would hold off on dobutamine infusion until after we have looked at the patient's coronary arteries to avoid possible ventricular arrhythmias. The patient's elevated BUN and creatinine may be a result of very poor renal perfusion due to his severe LV dysfunction. I would recommend a 1500 cc fluid restriction, and initiate Lasix 40 mg p.o. twice daily to maintain and optimize fluid status. I would not recommend Aldactone given the patient's chronic renal insufficiency. Arms given the patient's chronic renal insufficiency. I would recommend hydralazine 10 mg p.o. 3 times daily for afterload reduction in order to facilitate LV unloading. Code Visit Inpatient E&M: [id number] [place] [id number]
--- NOTE | 2017-07-28 11:55 | NURSING ---
1110 fentynal patch flushed in toilet per dr Gomez verbal order. Dr Gomez observed waste
[2017-07-28 13:11] LABS: Partial Thromboplast Time 35.6 Seconds (24.1-36.2)
[2017-07-28] MEDS: oxyCODONE 5 MG Tablet 10 MG PO (13:41)
[2017-07-28] MEDS: Furosemide 40 MG/4 ML Vial IV (13:41)
--- NOTE | 2017-07-28 15:36 | PCM.PN.REN ---
Patient Problems: Active and Suspected Problems Elevated troponin I level (Acute) Acute renal failure (Acute) Subjective: Spoke with family at bedside. Patient more responsive however remains drowsy, easily falls back to sleep in the middle of conversation. Function back to baseline. Sodium level continues to rise at 148. Currently on thickened liquids for aspiration precaution. Has mild diffuse edema. Complained of right knee pain. - Physical Exam General: Alert, - - somnolent but arousable HEENT: PERRLA, EOMI Lungs: Clear to auscultation Cardiovascular: Regular rate, No rub noted Abdomen: Bowel Sounds Present, Soft, Non Tender, Non-Distended Extremities: Edema - Mild bilateral lower extremity, right upper extremity where IV access placed Skin: No rashes Musculoskeletal: - - Voice weakness Neurological: - - No tremor upper extremity Psych/Mental Status: Flat Affect Vital Signs Temp Pulse Resp BP Pulse Ox 97.9 F 101 H 16 128/83 H 98 07/28/17 13:39 07/28/17 15:00 07/28/17 13:39 07/28/17 13:39 07/28/17 13:39 Oxygen Flow Rate 2 Oxygen Delivery Method Nasal Cannula Weight: 87.4 kg Body Mass Index (BMI) 26.9 Intake and Output for Last 24 Hours 07/26/17 07/27/17 07/28/17 23:59 23:59 23:59 Intake Total 1694 / 1694 1936 / 1936 883.1 / 883.1 Output Total 1425 / 1425 1445 / 1445 475 / 475 Balance 269 / 269 491 / 491 408.1 / 408.1 Laboratory Tests Past 24 Hrs 07/28/17 07/28/17 07/28/17 05:35 05:35 12:46 APTT 43.9 H 35.6 Sodium 148 H Potassium 3.6 Chloride 113 H Carbon Dioxide 24.0 Anion Gap 11 BUN 67 H Creatinine 1.07 Estim Creat Clear Calc 63.53 Est GFR (MDRD) Af Amer 86 Est GFR (MDRD) Non-Af 71 BUN/Creatinine Ratio 62.6 H Glucose 122 H Calcium 8.5 Assessment/Plan Active and Suspected Problems Elevated troponin I level (Acute) Acute renal failure (Acute) 1. KARINE due to prerenal azotemia, biventricular failure, NSTEMI with baseline creatinine 0.9-1.0 in Jun 20172016. Renal function to baseline. Mental status still not at baseline. Continues to be somnolent but more conversational with the family. No need for dialysis. 2. Acute NSTEMI with severe cardiomyopathy, biventricular failure. No aggressive intervention at this time. Continue medical management. 3. Remote history of pulmonary embolus which may be contributing to his RHF. consider venous US BLE 4. Metabolic encephalopathy with underlying dementia. Continue to monitor. 5. Hypernatremia thickened liquids continue D5W. 6. Severe debilitation with aspiration risk. Patient DNR CCA. Okay to transfer to ECF for therapy from renal standpoint.
--- NOTE | 2017-07-28 18:41 | PN_ITS ---
Patient Problems: Active and Suspected Problems Elevated troponin I level (Acute) Acute renal failure (Acute) Subjective: Patient was seen and examined today, he is nonverbal to this examiner, I talked with his and family members were in the room today, his has decided that he should be a DNR CC arrest, we are currently awaiting approval for the patient to go to TCU for rehab. According to the , patient was able to do simple tasks at home even though he had dementia. Patient was directable. This was the case up until approximately a week before he was admitted into the hospital. Talked with his communication and outreach manager this morning, there are no plans at this time to do anymore testing as far as his cardiac disease is concerned at present time due to his mental status. I talked with nephrology today, cardiology started the patient on IV Lasix today, cardiology states that they will monitor his electrolytes, if his sodium goes up tomorrow they will have to stop the Lasix. - Physical Exam General: Alert, No apparent distress, Well developed HEENT: Atraumatic, PERRLA, EOMI, Normocephalic Oral: Moist Mucosa Neck: Supple, No JVD, No Nuchal Rigidity, Trachea Midline, Thyroid Normal Size and Texture Lungs: Clear to auscultation, Normal air movement, No rhonchi, No wheeze, No rales Cardiovascular: Regular rate, Regular Rhythm, Normal S1, Normal S2, No murmurs, No Ectopic Activity, PMI Normal, No rub noted, No Gallop Abdomen: Bowel Sounds Present, Soft, Non Tender, Non-Distended, No hernias noted Extremities: Capillary Refill Less than 3 Seconds Skin: No rashes, No breakdown Musculoskeletal: No Tenderness to Palpation of Joints or Extremities Neurological: Cranial nerves II-XII grossly intact, Neuro grossly intact, Sensory exam intact to light touch and pain Psych/Mental Status: Normal Affect, Appropriate, Alert and oriented to time, place, person, mood and affect Vital Signs Temp Pulse Resp BP Pulse Ox 97.9 F 101 H 16 128/83 H 98 07/28/17 13:39 07/28/17 15:00 07/28/17 13:39 07/28/17 13:39 07/28/17 13:39 Oxygen Flow Rate 2 Oxygen Delivery Method Nasal Cannula Weight: 87.4 kg Body Mass Index (BMI) 26.9 Intake and Output for Last 24 Hours 07/26/17 07/27/17 07/28/17 23:59 23:59 23:59 Intake Total 1694 / 1694 1936 / 1936 1366.1 / 1366.1 Output Total 1425 / 1425 1445 / 1445 2074 / 2074 Balance 269 / 269 491 / 491 -708.9 / -708.9 Laboratory Tests Past 24 Hrs 07/28/17 07/28/17 07/28/17 05:35 05:35 12:46 APTT 43.9 H 35.6 Sodium 148 H Potassium 3.6 Chloride 113 H Carbon Dioxide 24.0 Anion Gap 11 BUN 67 H Creatinine 1.07 Estim Creat Clear Calc 63.53 Est GFR (MDRD) Af Amer 86 Est GFR (MDRD) Non-Af 71 BUN/Creatinine Ratio 62.6 H Glucose 122 H Calcium 8.5 Assessment/Plan Active and Suspected Problems Elevated troponin I level (Acute) Acute renal failure (Acute) #1 cst-HBZBP-[facility]rllipbin is participating in his care, continue present medications #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 She is okay with this, patient will need to be [facility] in a [facility] facility-we are expecting TCU to have a bed Sunday hopefully #5 hypernatremia-nephrology is participating in patient's care #6 hypertension Code Visit Inpatient E&M: [id number] Subs Hosp L2
[2017-07-28] MEDS: Atorvastatin Calcium 40 MG Tablet PO (22:39)
[2017-07-29] VITALS (20 sets, daily range): BP systolic 101–122; BP diastolic 59–82; PULSE 51–142; RESP 12–18; TEMP 36.3–36.8; O2SAT 94–98
--- NOTE | 2017-07-29 02:54 | EKG12_ITS ---
Test Reason : CP Blood Pressure : / mmHG Vent. Rate : 102 BPM Atrial Rate : 102 BPM P-R Int : 192 ms QRS Dur : 108 ms QT Int : 364 ms P-R-T Axes : 011 062 -64 degrees QTc Int : 474 ms Sinus tachycardia with occasional Premature ventricular complexes ST & T wave abnormality, consider inferior ischemia Abnormal ECG When compared with ECG of 23-JUL-2017 07:10, T wave inversion no longer evident in Anterior leads Confirmed by ROSA JACKSON, JOHN ([id number]), supervising editor news reel FLORENCIA BECKHAM ([id number]) on 08/01/2017 2:42:49 PM Referred By: DR MARINELLI Confirmed By:JOHN LEE MD
[2017-07-29] MEDS: oxyCODONE 5 MG Tablet 10 MG PO (03:20)
[2017-07-29] MEDS: Nitroglycerin Oint 1 INCH PACKET 0.5 INCH TRANSDERM. (05:46)
[2017-07-29 06:17] LABS: Anion Gap 10 (5-15); BUN 56 mg/dL (7-18); BUN/Creat Ratio 54.4 RATIO (10-20); Calcium,Total 8.3 mg/dL (8.5-10.1); Chloride 109 mmol/L (98-107); Creatinine, Serum 1.03 mg/dL (0.70-1.30); EST Glomerular Filtration Rate 75 mL/min (>60); Est Glom Filt Rate - Afr Amer 90 mL/min (>60); Glucose 100 mg/dL (74-106); Potassium 3.3 mmol/L (3.5-5.1); Sodium Level 144 mmol/L (136-145)
[2017-07-29] MEDS: Ipratropium/Albuterol Sulfate 3 ML AMPUL.NEB INHALATION ×3 (07:01→19:34)
[2017-07-29] MEDS: Aspirin E.C. 81 MG Tablet PO (08:35)
[2017-07-29] MEDS: Donepezil HCl 10 MG Tablet PO (08:35)
[2017-07-29] MEDS: DULoxetine Hcl 60 MG Capsule PO (08:36)
[2017-07-29] MEDS: Memantine Hydrochloride 10 MG Tablet PO ×2 (08:36→22:48)
[2017-07-29] MEDS: Furosemide 40 MG/4 ML Vial IV (08:36)
[2017-07-29] MEDS: Carvedilol 3.125 MG TABLET PO ×2 (08:36→22:48)
[2017-07-29] MEDS: Pantoprazole Sodium 40 MG Tablet PO (08:37)
--- NOTE | 2017-07-29 09:15 | PCM.PN.CARD ---
Subjectve: Patient seen this morning, doing about the same, telemetry showed normal sinus rhythm with rare PAC. Objective: Vital Signs Temp Pulse Resp BP Pulse Ox 97.8 F 98 17 110/68 96 07/29/17 08:41 07/29/17 08:41 07/29/17 08:41 07/29/17 08:41 07/29/17 08:41 Oxygen Flow Rate 2 Oxygen Delivery Method Nasal Cannula Weight: 192 lb 10.944 oz Body Mass Index (BMI) 26.9 Intake and Output for Last 24 Hours 07/27/17 07/28/17 07/29/17 23:59 23:59 23:59 Intake Total 1936 / 1936 1865.1 / 1865.1 625 / 625 Output Total 1445 / 1445 2655 / 2655 215 / 215 Balance 491 / 491 -789.9 / -789.9 410 / 410 General: Awake, Alert, Oriented x 3 HEENT: PERRL, EOMI, Sclera Non Icteric Neck: Supple, Good ROM, No Lymph Node Enlargement Lungs: Clear to auscultation Cardiovascular: Regular Rhythm, Normal S1, Normal S2, No Murmurs, No Rubs, No Gallops Vascular: No Carotid Bruits, Normal Femoral Pulses, Normal Radial Pulses, Normal Dorsalis Pedal Pulse, Normal Posterior Tibial Pulses Abdomen: Bowel Sounds Present, Soft, Non Tender, No HSM, No Organomegaly Extremities: No Cyanosis, No Clubbing, No edema Neurological: No Focal Motor or Sensory Deficit 07/28/17 12:46: APTT 35.6 07/29/17 05:32: Sodium 144, Potassium 3.3 L, Chloride 109 H, Carbon Dioxide 25.0, Anion Gap 10, BUN 56 H, Creatinine 1.03, Est GFR (MDRD) Af Amer 90, Est GFR (MDRD) Non-Af 75, BUN/Creatinine Ratio 54.4 H, Glucose 100, Calcium 8.3 L Rhythm: EKG: ECHO: Stress Test: Cardiac Cath: PCI: CT Surgery: Holter monitor: EPS: PPM: CXR: Chest CT Scan: Assessment/Plan 1. LV dysfunction: Patient is a marked deterioration of his LV function from July 2017 until this admission. His EF is gone from 60% down to around 10 or 15% with severe global hypokinesis. In addition the patient had a marked increase in his BUN and creatinine however these appear much improved with IV fluid. Patient had a dialysis catheter placed but it does not appear that he requires dialysis at this time. Without a diagnostic coronary angiogram it is impossible to know whether the patient had an acute coronary event and between his 2 echocardiograms, and his degree of troponin release on this admission is out of proportion to his degree of LV dysfunction. I believe it is reasonable to consider diagnostic coronary angiogram once the patient's mental status has improved. We would need co-consent with the patient's for this given the patient's mental status changes. In addition, I would hold off on dobutamine infusion until after we have looked at the patient's coronary arteries to avoid possible ventricular arrhythmias. The patient's elevated BUN and creatinine may be a result of very poor renal perfusion due to his severe LV dysfunction. I would recommend a 1500 cc fluid restriction, and initiate Lasix 40 mg p.o. twice daily to maintain and optimize fluid status. I would not recommend Aldactone given the patient's chronic renal insufficiency. Arms given the patient's chronic renal insufficiency. I would recommend hydralazine 10 mg p.o. 3 times daily for afterload reduction in order to facilitate LV unloading. Would recommend repeating his echocardiogram in 2-3 months time to determine if his cardiomyopathy has improved as a result of resolution of his acute event. 2. Discussed with Dr. Gomez. [facility] facility or to home with follow-up in our office with Dr. Hylton. Code Visit Inpatient E&M: [id number] Subs Hosp L2
--- NOTE | 2017-07-29 09:18 | PN.CARD_ITS ---
Subjectve: Patient seen this morning, doing about the same, telemetry showed normal sinus rhythm with rare PAC. Objective: Vital Signs Temp Pulse Resp BP Pulse Ox 97.8 F 98 17 110/68 96 07/29/17 08:41 07/29/17 08:41 07/29/17 08:41 07/29/17 08:41 07/29/17 08:41 Oxygen Flow Rate 2 Oxygen Delivery Method Nasal Cannula Weight: 192 lb 10.944 oz Body Mass Index (BMI) 26.9 Intake and Output for Last 24 Hours 07/27/17 07/28/17 07/29/17 23:59 23:59 23:59 Intake Total 1936 / 1936 1865.1 / 1865.1 625 / 625 Output Total 1445 / 1445 2655 / 2655 215 / 215 Balance 491 / 491 -789.9 / -789.9 410 / 410 General: Awake, Alert, Oriented x 3 HEENT: PERRL, EOMI, Sclera Non Icteric Neck: Supple, Good ROM, No Lymph Node Enlargement Lungs: Clear to auscultation Cardiovascular: Regular Rhythm, Normal S1, Normal S2, No Murmurs, No Rubs, No Gallops Vascular: No Carotid Bruits, Normal Femoral Pulses, Normal Radial Pulses, Normal Dorsalis Pedal Pulse, Normal Posterior Tibial Pulses Abdomen: Bowel Sounds Present, Soft, Non Tender, No HSM, No Organomegaly Extremities: No Cyanosis, No Clubbing, No edema Neurological: No Focal Motor or Sensory Deficit 07/28/17 12:46: APTT 35.6 07/29/17 05:32: Sodium 144, Potassium 3.3 L, Chloride 109 H, Carbon Dioxide 25.0 , Anion Gap 10, BUN 56 H, Creatinine 1.03, Est GFR (MDRD) Af Amer 90, Est GFR ( MDRD) Non-Af 75, BUN/Creatinine Ratio 54.4 H, Glucose 100, Calcium 8.3 L Rhythm: EKG: ECHO: Stress Test: Cardiac Cath: PCI: CT Surgery: Holter monitor: EPS: PPM: CXR: Chest CT Scan: Assessment/Plan 1. LV dysfunction: Patient is a marked deterioration of his LV function from July 2017 until this admission. His EF is gone from 60% down to around 10 or 15% with severe global hypokinesis. In addition the patient had a marked increase in his BUN and creatinine however these appear much improved with IV fluid. Patient had a dialysis catheter placed but it does not appear that he requires dialysis at this time. Without a diagnostic coronary angiogram it is impossible to know whether the patient had an acute coronary event and between his 2 echocardiograms, and his degree of troponin release on this admission is out of proportion to his degree of LV dysfunction. I believe it is reasonable to consider diagnostic coronary angiogram once the patient's mental status has improved. We would need co-consent with the patient 's for this given the patient's mental status changes. In addition, I would hold off on dobutamine infusion until after we have looked at the patient's coronary arteries to avoid possible ventricular arrhythmias. The patient's elevated BUN and creatinine may be a result of very poor renal perfusion due to his severe LV dysfunction. I would recommend a 1500 cc fluid restriction, and initiate Lasix 40 mg p.o. twice daily to maintain and optimize fluid status. I would not recommend Aldactone given the patient's chronic renal insufficiency. Arms given the patient's chronic renal insufficiency. I would recommend hydralazine 10 mg p.o. 3 times daily for afterload reduction in order to facilitate LV unloading. Would recommend repeating his echocardiogram in 2-3 months time to determine if his cardiomyopathy has improved as a result of resolution of his acute event. 2. Discussed with Dr. Gomez. May consider transfer to a [place] [facility] facility or to home with follow-up in our office with Dr. Hylton. Code Visit Inpatient E&M: [id number] Subs Hosp L2
[2017-07-29] MEDS: Lactulose 20 GM/30 ML UDC 30 GM PO ×2 (10:41→13:54)
--- NOTE | 2017-07-29 13:40 | NURSING ---
Dressing change to rt chest wall dialysis cath. Cleansed site with ChloraPrep and tegaderm chg dressing applied over top. Site with out redness, edema or drainage.
--- NOTE | 2017-07-29 19:43 | PCM.PROGNOTE ---
Patient Problems: Active and Suspected Problems Elevated troponin I level (Acute) Acute renal failure (Acute) Subjective: Patient was seen and examined today, he is more alert today and responsive to simple questions. I talked at length with his family members including his who is in the room today. Patient's creatinine remains normal, BUN decreased from yesterday. Patient's IV fluids were stopped by nephrology, potassium was slightly low today. Patient is still not eating much but is taking in fluids. Patient still has a right IJ dialysis catheter in place which is temporary, it will need to be discontinued before he is sent to a assisted facility. - Physical Exam General: Alert, Cooperative, No apparent distress, Well developed HEENT: Atraumatic, PERRLA, EOMI Oral: Moist Mucosa Neck: Supple, No JVD, No Nuchal Rigidity, Trachea Midline, Thyroid Normal Size and Texture, - - Right IJ dialysis catheter in place Lungs: Clear to auscultation, Normal air movement, No rhonchi, No wheeze, No rales Cardiovascular: Regular rate, Regular Rhythm, Normal S1, Normal S2, No murmurs, No Ectopic Activity, PMI Normal, No rub noted, No Gallop Abdomen: Bowel Sounds Present, Soft, Non Tender, Non-Distended, No hernias noted Extremities: No clubbing, No cyanosis, Edema - Generalized edema is noted of the lower legs and feet Musculoskeletal: No Tenderness to Palpation of Joints or Extremities Neurological: Cranial nerves II-XII grossly intact, Neuro grossly intact, Sensory exam intact to light touch and pain Psych/Mental Status: Flat Affect, - - Patient is alert but confused, he is not agitated Vital Signs Temp Pulse Resp BP Pulse Ox 97.8 F 78 18 122/82 H 96 07/29/17 17:25 07/29/17 19:34 07/29/17 19:34 07/29/17 17:25 07/29/17 19:35 Oxygen Flow Rate 2 Oxygen Delivery Method Nasal Cannula Weight: 87.4 kg Body Mass Index (BMI) 26.9 Intake and Output for Last 24 Hours 07/27/17 07/28/17 07/29/17 23:59 23:59 23:59 Intake Total 1935 / 1935 1865.1 / 1865.1 1934 Output Total 1445 / 1445 2655 / 2655 1515 / 1515 Balance 491 / 491 -789.9 / -789.9 420 / 420 Laboratory Tests Past 24 Hrs 07/29/17 05:32 Sodium 144 Potassium 3.3 L Chloride 109 H Carbon Dioxide 25.0 Anion Gap 10 BUN 56 H Creatinine 1.03 Estim Creat Clear Calc 66.00 Est GFR (MDRD) Af Amer 90 Est GFR (MDRD) Non-Af 75 BUN/Creatinine Ratio 54.4 H Glucose 100 Calcium 8.3 L Assessment/Plan Active and Suspected Problems Elevated troponin I level (Acute) Acute renal failure (Acute) #1 [id number] is participating in his care, continue present medications #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 If his mental status improves and he becomes more stable, he may undergo heart catheterization in the near future #3 acute kidney injury-nephrology is participating in his care, patient's creatinine is normal, BUN is decreasing, right IJ catheter for dialysis will need removed before he is transferred to a assisted facility #4 dementia-patient may have a component of metabolic encephalopathy on his underlying dementia, his mental status today is improved #5 hypernatremia-resolved #6 Essential hypertension-patient's blood pressure today is been running near 100 systolic, this is probably secondary to his poor EF and medications use for treatment of his cardiomyopathy. Summary: This 76-year-old male with existing dementia was admitted from home with mental status change, acute kidney injury, and non-STEMI. During his workup, it was found that his ejection fraction was severely reduced to 10-15%, previous echoes had shown an ejection fraction of 50% according to cardiology. 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 Patient will need placement in a assisted facility for rehab and adjustment of medications, he presently has a catheter in the right IJ, this will need to be removed at the time he is discharged to the assisted facility Code Visit Inpatient E&M: 93495 Subs Hosp L2
--- NOTE | 2017-07-29 19:52 | PN_ITS ---
Patient Problems: Active and Suspected Problems Elevated troponin I level (Acute) Acute renal failure (Acute) Subjective: Patient was seen and examined today, he is more alert today and responsive to simple questions. I talked at length with his family members including his who is in the room today. Patient's creatinine remains normal, BUN decreased from yesterday. Patient's IV fluids were stopped by nephrology, potassium was slightly low today. Patient is still not eating much but is taking in fluids. Patient still has a right IJ dialysis catheter in place which is temporary, it will need to be discontinued before he is sent to a [facility] facility. - Physical Exam General: Alert, Cooperative, No apparent distress, Well developed HEENT: Atraumatic, PERRLA, EOMI Oral: Moist Mucosa Neck: Supple, No JVD, No Nuchal Rigidity, Trachea Midline, Thyroid Normal Size and Texture, - - Right IJ dialysis catheter in place Lungs: Clear to auscultation, Normal air movement, No rhonchi, No wheeze, No rales Cardiovascular: Regular rate, Regular Rhythm, Normal S1, Normal S2, No murmurs, No Ectopic Activity, PMI Normal, No rub noted, No Gallop Abdomen: Bowel Sounds Present, Soft, Non Tender, Non-Distended, No hernias noted Extremities: No clubbing, No cyanosis, Edema - Generalized edema is noted of the lower legs and feet Musculoskeletal: No Tenderness to Palpation of Joints or Extremities Neurological: Cranial nerves II-XII grossly intact, Neuro grossly intact, Sensory exam intact to light touch and pain Psych/Mental Status: Flat Affect, - - Patient is alert but confused, he is not agitated Vital Signs Temp Pulse Resp BP Pulse Ox 97.8 F 78 18 122/82 H 96 07/29/17 17:25 07/29/17 19:34 07/29/17 19:34 07/29/17 17:25 07/29/17 19:35 Oxygen Flow Rate 2 Oxygen Delivery Method Nasal Cannula Weight: 87.4 kg Body Mass Index (BMI) 26.9 Intake and Output for Last 24 Hours 07/27/17 07/28/17 07/29/17 23:59 23:59 23:59 Intake Total 1935 / 1935 1865.1 / 1865.1 1934 Output Total 1445 / 1445 2655 / 2655 1515 / 1515 Balance 491 / 491 -789.9 / -789.9 420 / 420 Laboratory Tests Past 24 Hrs 07/29/17 05:32 Sodium 144 Potassium 3.3 L Chloride 109 H Carbon Dioxide 25.0 Anion Gap 10 BUN 56 H Creatinine 1.03 Estim Creat Clear Calc 66.00 Est GFR (MDRD) Af Amer 90 Est GFR (MDRD) Non-Af 75 BUN/Creatinine Ratio 54.4 H Glucose 100 Calcium 8.3 L Assessment/Plan Active and Suspected Problems Elevated troponin I level (Acute) Acute renal failure (Acute) #1 [id number] is participating in his care, continue present medications #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 If his mental status improves and he becomes more stable, he may undergo heart catheterization in the near future #3 acute kidney injury-nephrology is participating in his care, patient's creatinine is normal, BUN is decreasing, right IJ catheter for dialysis will need removed before he is transferred to a [facility] facility #4 dementia-patient may have a component of metabolic encephalopathy on his underlying dementia, his mental status today is improved #5 hypernatremia-resolved #6 Essential hypertension-patient's blood pressure today is been running near 100 systolic, this is probably secondary to his poor EF and medications use for treatment of his cardiomyopathy. Summary: This 76-year-old male with existing dementia was admitted from home with mental status change, acute kidney injury, and non-STEMI. During his workup, it was found that his ejection fraction was severely reduced to 10-15%, previous echoes had shown an ejection fraction of 50% according to cardiology. 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 Patient will need placement in a [facility] facility for rehab and adjustment of medications, he presently has a catheter in the right IJ, this will need to be removed at the time he is discharged to the [facility] facility Code Visit Inpatient E&M: 84999 Subs Hosp L2
[2017-07-29] MEDS: Atorvastatin Calcium 40 MG Tablet PO (22:49)
[2017-07-30] VITALS (11 sets, daily range): BP systolic 102–110; BP diastolic 72–79; PULSE 68–112; RESP 16–20; TEMP 36.6–37.3; O2SAT 95–98
[2017-07-30 06:19] LABS: Anion Gap 9 (5-15); BUN 43 mg/dL (7-18); BUN/Creat Ratio 39.8 RATIO (10-20); Calcium,Total 8.5 mg/dL (8.5-10.1); Chloride 107 mmol/L (98-107); Creatinine, Serum 1.08 mg/dL (0.70-1.30); EST Glomerular Filtration Rate 71 mL/min (>60); Est Glom Filt Rate - Afr Amer 86 mL/min (>60); Estimated Creatinine Clearance 62.94 ml/min; Glucose 99 mg/dL (74-106); Potassium 3.3 mmol/L (3.5-5.1); Sodium Level 144 mmol/L (136-145)
[2017-07-30] MEDS: Ipratropium/Albuterol Sulfate 3 ML AMPUL.NEB INHALATION ×2 (06:58→13:15)
[2017-07-30] MEDS: Aspirin E.C. 81 MG Tablet PO (08:59)
[2017-07-30] MEDS: Donepezil HCl 10 MG Tablet PO (09:00)
[2017-07-30] MEDS: DULoxetine Hcl 60 MG Capsule PO (09:01)
[2017-07-30] MEDS: Nystatin Powder 15gm Bottle 1 APPLIC TOPICAL (09:01)
[2017-07-30] MEDS: Memantine Hydrochloride 10 MG Tablet PO (09:02)
[2017-07-30] MEDS: Pantoprazole Sodium 40 MG Tablet PO (09:02)
[2017-07-30] MEDS: Furosemide 40 MG/4 ML Vial IV (09:09)
--- NOTE | 2017-07-30 09:44 | PCM.PN.CARD ---
Subjectve: The patient appears to be resting comfortably. There have been no reports of any acute changes with respect to chest discomfort or worsening shortness of breath/dyspnea. Objective: Vital Signs Temp Pulse Resp BP Pulse Ox 98.9 F 91 20 H 110/79 95 07/30/17 06:20 07/30/17 07:18 07/30/17 06:58 07/30/17 06:27 07/30/17 06:58 Oxygen Flow Rate 2 Oxygen Delivery Method Nasal Cannula Weight: 192 lb 0.362 oz Body Mass Index (BMI) 26.9 Intake and Output for Last 24 Hours 07/28/17 07/29/17 07/30/17 23:59 23:59 23:59 Intake Total 1865.1 / 1865.1 1984 Output Total 2655 / 2655 1765 / 1765 200 / 200 Balance -789.9 / -789.9 220 / 220 -200 / -200 General: Disoriented Lungs: Clear to auscultation Cardiovascular: Regular Rhythm, Premature Ectopic Beats, Normal S1, Normal S2 Abdomen: Bowel Sounds Present, Soft, Non Tender Extremities: No edema 07/30/17 05:10: Sodium 144, Potassium 3.3 L, Chloride 107, Carbon Dioxide 28.0, Anion Gap 9, BUN 43 H, Creatinine 1.08, Est GFR (MDRD) Af Amer 86, Est GFR (MDRD) Non-Af 71, BUN/Creatinine Ratio 39.8 H, Glucose 99, Calcium 8.5 Rhythm: Sinus rhythm; PACs; PVCs, intermittent irregular narrow complex tachycardia concerning for ectopic atrial tachycardia Assessment/Plan 1. Non-ST segment elevation [place] The patient has continued to be followed. He has undergone noninvasive studies. He does have the appearance of underlying cardiomyopathy. There is a concern whether this is ischemic or nonischemic mediated. Has been started on medical management. This is included aspirin, beta blockers, and lipid-lowering agents. He has not been on JANINE inhibitors or ARB secondary to his ongoing renal insufficiency. He may eventually need further evaluation with noninvasive or invasive studies. However this may depend upon his underlying mental status as well as his other medical issues including his renal insufficiency. 2. Cardiomyopathy As appear to have an underlying cardiomyopathy. His LV systolic function is markedly depressed according to his echocardiographic studies. Again the etiology is unclear as noted above. He will continue medical management. His medications will be adjusted based upon his ability to tolerate them from the standpoint of vital signs, renal function, etc., as noted above. 3. Cardiac dysrhythmia The patient's cardiac rhythm monitor suggests episodes of PACs and PVCs as well as irregular narrow complex rhythm appearing compatible with an ectopic atrial rhythm/tachycardia. At the present time he will be followed. He will continue his beta-benitez therapy. The dose can be adjusted as tolerated. If his rhythm demonstrates additional dysrhythmias then he may need to be considered for additional medications including antiarrhythmics, anticoagulants, etc. as needed. 3. Hypertension He apparently has a history of hypertension. He will continue medical therapy as deemed appropriate and able. 4. Renal insufficiency He does have the appearance of renal insufficiency. Now status post tunnel catheter placement for dialysis therapy. 5. Dementia He does have a history of dementia. He appears to have been noted to be confused. Again this impacts his ongoing evaluation and care. This note was generated with [employer] dictation software. It may contain incorrect words, spelling, and punctuation that were not noted in checking the note before signing.
--- NOTE | 2017-07-30 09:49 | PN.CARD_ITS ---
Subjectve: The patient appears to be resting comfortably. There have been no reports of any acute changes with respect to chest discomfort or worsening shortness of breath/dyspnea. Objective: Vital Signs Temp Pulse Resp BP Pulse Ox 98.9 F 91 20 H 110/79 95 07/30/17 06:20 07/30/17 07:18 07/30/17 06:58 07/30/17 06:27 07/30/17 06:58 Oxygen Flow Rate 2 Oxygen Delivery Method Nasal Cannula Weight: 192 lb 0.362 oz Body Mass Index (BMI) 26.9 Intake and Output for Last 24 Hours 07/28/17 07/29/17 07/30/17 23:59 23:59 23:59 Intake Total 1865.1 / 1865.1 1984 Output Total 2655 / 2655 1765 / 1765 200 / 200 Balance -789.9 / -789.9 220 / 220 -200 / -200 General: Disoriented Lungs: Clear to auscultation Cardiovascular: Regular Rhythm, Premature Ectopic Beats, Normal S1, Normal S2 Abdomen: Bowel Sounds Present, Soft, Non Tender Extremities: No edema 07/30/17 05:10: Sodium 144, Potassium 3.3 L, Chloride 107, Carbon Dioxide 28.0, Anion Gap 9, BUN 43 H, Creatinine 1.08, Est GFR (MDRD) Af Amer 86, Est GFR (MDRD ) Non-Af 71, BUN/Creatinine Ratio 39.8 H, Glucose 99, Calcium 8.5 Rhythm: Sinus rhythm; PACs; PVCs, intermittent irregular narrow complex tachycardia concerning for ectopic atrial tachycardia Assessment/Plan 1. Non-ST segment elevation [place] The patient has continued to be followed. He has undergone noninvasive studies. He does have the appearance of underlying cardiomyopathy. There is a concern whether this is ischemic or nonischemic mediated. Has been started on medical management. This is included aspirin, beta blockers , and lipid-lowering agents. He has not been on JANINE inhibitors or ARB secondary to his ongoing renal insufficiency. He may eventually need further evaluation with noninvasive or invasive studies. However this may depend upon his underlying mental status as well as his other medical issues including his renal insufficiency. 2. Cardiomyopathy As appear to have an underlying cardiomyopathy. His LV systolic function is markedly depressed according to his echocardiographic studies. Again the etiology is unclear as noted above. He will continue medical management. His medications will be adjusted based upon his ability to tolerate them from the standpoint of vital signs, renal function, etc., as noted above. 3. Cardiac dysrhythmia The patient's cardiac rhythm monitor suggests episodes of PACs and PVCs as well as irregular narrow complex rhythm appearing compatible with an ectopic atrial rhythm/tachycardia. At the present time he will be followed. He will continue his beta-benitez therapy. The dose can be adjusted as tolerated. If his rhythm demonstrates additional dysrhythmias then he may need to be considered for additional medications including antiarrhythmics, anticoagulants , etc. as needed. 3. Hypertension He apparently has a history of hypertension. He will continue medical therapy as deemed appropriate and able. 4. Renal insufficiency He does have the appearance of renal insufficiency. Now status post tunnel catheter placement for dialysis therapy. 5. Dementia He does have a history of dementia. He appears to have been noted to be confused. Again this impacts his ongoing evaluation and care. This note was generated with [employer] dictation software. It may contain incorrect words, spelling, and punctuation that were not noted in checking the note before signing.
[2017-07-30] MEDS: Carvedilol 6.25 MG Tablet PO (11:19)
--- NOTE | 2017-07-30 11:28 | NURSING ---
waters cath removed, pt tolerated well. Will bladder scan once patient voids.
--- NOTE | 2017-07-30 11:33 | CASEMGMT ---
TCU has a bed for patient and he would be able to go there as he will not be on dialysis. Kavita said he could come today. SW notified physician. Plan: TCU when ready. Valentina TELLEZ
--- NOTE | 2017-07-30 11:47 | PCM.TXEXTCAR ---
- Diet 07/27/17 09:46 Diet: Renal: 60 gm protein Food consistency:: Puree Liquid Consistency:: Honey Thick Dietary Modifications:: Pureed Diet Honey Thick Liquids Is pt able to select menu?: No Diet Comments: TOTAL FEED; all liquid via spoon, seated upright, meds crushed in purees Sodium restricted, 2 grams daily. - Routine Orders/Code Status Suppository Type: Dulcolax 10mg Suppository Frequency: Daily PRN O2 Liters per Minute: 2 O2 Frequency: Continuous Routine Lab Work: CBC - every other day x 3, BMP - every other day x 3 Code Status: [facility] - Wound(s) right outer great toe Wound Type: Abrasion roof of mouth left side Wound Type: Pressure Injury rt subclavian port placement Wound Type: Surgical Incision Dressing Change: Dry Sterile Dressing Temp Dialysis Cath Wound Type: Surgical Incision - Therapies Physical Therapy: Eval and Treat Occupational Therapy: Eval and Treat - Problem/Diagnosis (1) NSTEMI (non-ST elevated myocardial infarction) Status: Acute Current Visit: Yes (2) Cardiomyopathy Status: Acute Current Visit: Yes (3) KARINE (acute kidney injury) Status: Acute Current Visit: Yes (4) Hypernatremia Status: Acute Current Visit: Yes (5) Dementia Status: Chronic Current Visit: Yes (6) Hypertension Status: Chronic Current Visit: No (7) Debility Status: Acute Current Visit: Yes - Allergies/Procedures Done in Hospital Allergies/Adverse Reactions: Allergies hydrocodone [From Vicodin] Adverse Reaction (Verified 07/22/17 17:19) Itching lorazepam [From Ativan] Adverse Reaction (Verified 07/22/17 17:19) Other MAKES ME CRAZY morphine Adverse Reaction (Verified 07/22/17 17:19) Other MAKES HIM CRAZY PER - Type of Care/Length of Stay Estimated LOS: Convalescent Care Less Than 30 days Type of Care Needed: Skilled Rehab Potential: Fair Prognosis: Fair - Additional Orders/Day of Discharge Day of Discharge: 07/30/17 - Dietary and Speech Recommendations Dietitian Recommendations/Changes: Suggest diet change to renal 60 g protein-consistency per GEOLOGY PROFESSOR. If PO intake to remain contraindicated, may need to consider alternate nutrition support. Please consult RD for recommendations as needed. - Follow Up Care Primary Care Physician: Jonel Mckeon MD [Primary Care Provider] - Please follow up with your Primary Care Physician in: 1-2 weeks
--- NOTE | 2017-07-30 11:51 | TREXTCAR_ITS ---
Addendum entered and electronically signed by MOISÉS Chavez 07/30/17 11:52: Code Visit Follow up: Also follow up with: Dr. Haydee Delgado 1 week, nephrology, and with Dr. Hylton 1 week, cardiology. Original Note: - Diet 07/27/17 09:46 Diet: Renal: 60 gm protein Food consistency:: Puree Liquid Consistency:: Honey Thick Dietary Modifications:: Pureed Diet Honey Thick Liquids Is pt able to select menu?: No Diet Comments: TOTAL FEED; all liquid via spoon, seated upright, meds crushed in purees Sodium restricted, 2 grams daily. - Routine Orders/Code Status Suppository Type: Dulcolax 10mg Suppository Frequency: Daily PRN O2 Liters per Minute: 2 O2 Frequency: Continuous Routine Lab Work: CBC - every other day x 3, BMP - every other day x 3 [facility] - Wound(s) right outer great toe Wound Type: Abrasion roof of mouth left side Wound Type: Pressure Injury rt subclavian port placement Wound Type: Surgical Incision Dressing Change: Dry Sterile Dressing Temp Dialysis Cath Wound Type: Surgical Incision - Therapies Physical Therapy: Eval and Treat Occupational Therapy: Eval and Treat - Problem/Diagnosis (1) NSTEMI (non-ST elevated myocardial infarction) Status: Acute Current Visit: Yes (2) Cardiomyopathy Status: Acute Current Visit: Yes (3) KARINE (acute kidney injury) Status: Acute Current Visit: Yes (4) Hypernatremia Status: Acute Current Visit: Yes (5) Dementia Status: Chronic Current Visit: Yes (6) Hypertension Status: Chronic Current Visit: No (7) Debility Status: Acute Current Visit: Yes - Allergies/Procedures Done in Hospital Allergies/Adverse Reactions: Allergies hydrocodone [From Vicodin] Adverse Reaction (Verified 07/22/17 17:19) Itching lorazepam [From Ativan] Adverse Reaction (Verified 07/22/17 17:19) Other MAKES ME CRAZY morphine Adverse Reaction (Verified 07/22/17 17:19) Other MAKES HIM CRAZY PER - Type of Care/Length of Stay Estimated LOS: Convalescent Care Less Than 30 days Type of Care Needed: Skilled Rehab Potential: Fair Prognosis: Fair - Additional Orders/Day of Discharge Day of Discharge: 07/30/17 - Dietary and Speech Recommendations Dietitian Recommendations/Changes: Suggest diet change to renal 60 g protein- consistency per DOG WARDEN. If PO intake to remain contraindicated, may need to consider alternate nutrition support. Please consult RD for recommendations as needed. - Follow Up Care Primary Care Physician: Jonel Mckeon MD [Primary Care Provider] - Please follow up with your Primary Care Physician in: 1-2 weeks
--- NOTE | 2017-07-30 13:04 | PCM.DC.SUM ---
Discharge Date and Diagnosis - Problem List Patient Problems: Active and Suspected Problems Elevated troponin I level (Acute) Acute renal failure (Acute) NSTEMI (non-ST elevated myocardial infarction) (Acute) Cardiomyopathy (Acute) KARINE (acute kidney injury) (Acute) Hypernatremia (Acute) Debility (Acute) Date of Admission: 07/22/17 Date of Discharge: 07/30/17 - Primary Discharge Diagnosis Active and Suspected Problems NSTEMI Acute metabolic encephalopathy KARINE Chronic COPD HTN HLD Dementia Depression Iron def. 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 chronic ulcer - Secondary Discharge Diagnosis Chronic Problems Dementia (Chronic) Chronic obstructive pulmonary disease (Chronic) Former tobacco use (Chronic) Dementia (Chronic) Subacute delirium (Chronic) Hypokalemia (Chronic) Constipation (Chronic) GERD (gastroesophageal reflux disease) (Chronic) Iron deficiency anemia (Chronic) Depression (Chronic) Pulmonary embolism (Chronic) History of pulmonary embolism (Chronic) Status post total right knee replacement (Chronic) Hyperlipidemia (Chronic) Hypertension (Chronic) Chronic lower back pain (Chronic) Hospital Course and Treatment Imaging Results: RAD/Chest 1 View (Portable) IMPRESSION: 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 Probable scarring or atelectasis in the right lung base. Echo: Interpretation Summary Severely dilated left ventricle. The estimated ejection fraction is 10-15 %. There is severe global hypokinesis of the left ventricle. Moderately dilated right ventricle. Moderate global right ventricular systolic dysfunction. The left atrium is moderately enlarged. Trivial mitral valve insufficiency. Moderate (2+) tricuspid valve insufficiency. Right ventricular systolic pressure estimated to be 18 mmHg. Pulmonary pressures most likely underestimated. Trivial aortic valve insufficiency. The inferior vena cava is dilated No collapse of the inferior vena cava. Compared to echo report dated 07/12/2016, LV function has markedly deteriorated from 60% to 10-15%. US/Kidney and Bladder IMPRESSION: Simple left renal cortical cyst RAD/Chest 1 View (Portable) IMPRESSION: Bilateral infiltrates or edema and pleural effusions. Consults: Belenw - cardio Danny - nephrology Cebul - surgery Operations: None, - Procedures: 2-D Echocardiogram, - - dialysis cath placement. Summary of Care Provided: Physical exam on day of discharge: General: Resting comfortably NAD Psych: A/Ox3 normal affect HEENT: PEARRLA AT MI Neck: Supple NT CV: RRR no m/t/r/g/h Resp: CTA Abd: [id number] Soft NT no guarding or rigidity Ext: DP2+= no edema Skin: W/D normal turgor Lymph/Heme: No active bleeding or adenopathy Neuro: CN2-12 intact Hospital course: The patient is a 76 year old M with a hx of HTN, HLD, chronic back pain, obesity, PE, COPD, iron def. anemia, who presented to the ER with decreased PO intake, malaise, and decreased urine output. He was found to have low BP 90/53, anemia, EKG with lateral T wave inversions, and elevated BUN and creatinine, elevated BNP, elevated troponin. He was admitted for NSTEMI, and KARINE, with metabolic encephalopathy. Cardiology and nephrology were consulted. Echo showed severely reduced EF at 10-15% and he was felt to have an underlying cardiomyopathy of unclear etiology. Surgery was consulted for placement of a IJ dialysis catheter. His renal function improved with holding his nephrotoxins and giving him IV fluids. Renal US was negative. Due to his underlying dementia, aggressive intervention such as cardiac catheterization was not recommended by cardiology at this time. He remained clinically stable and long term was recommended. This was arranged for him. His renal function was able to recover without any need for dialysis at this time. In the IJ was discontinued. He was discharged to TCU in stable condition. He will need to follow-up with nephrology, cardiology, his PCP. This patient was seen by Isra Mendosa PA-C under the supervision of Doctor Amy. [] Discharge Diet: Low fat/ Low Cholesterol, 2000 mg Sodium Diet Discharge Activity: Return to Normal Activity Home Medications: Medications to take at Discharge Duloxetine Hcl [Cymbalta] 60 mg PO DAILY 07/11/16 Omeprazole [Prilosec] 40 mg PO DAILY 09/20/16 Memantine HCl/Donepezil HCl [Namzaric 28 mg-10 mg Capsule] 1 each PO QHS 07/22/17 Multivit-Min/FA/Lycopen/Lutein [Centrum Silver Tablet] 1 each PO DAILY 07/22/17 Oxycodone Myristate [Xtampza ER] 18 mg PO BID 07/22/17 Albuterol Aerosols [Ventolin Aerosols] 2.5 mg INHALATION Q2H PRN PRN vial.neb. 07/30/17 Aspirin E.C. [Ecotrin] 81 mg PO DAILY@0800 tablet 07/30/17 Atorvastatin Calcium [Lipitor] 40 mg PO QHS tablet 07/30/17 Carvedilol [Coreg (Beta Ceci)] 6.25 mg PO BID tablet 07/30/17 HydrALAZINE [Apresoline] 10 mg PO TID tablet 07/30/17 Ipratropium/Albuterol Sulfate [Duoneb] 3 ml INHALATION Q6HWA.RT ampul.neb 07/30/17 Mag Hydrox/Al Hydrox/Simeth [Mylanta II] 30 ml PO Q6H PRN PRN udc 07/30/17 Magnesium Hydroxide [Milk Of Magnesia] 30 ml PO DAILY PRN PRN udc 07/30/17 Nitroglycerin [Nitrostat] 0.4 mg SUBLINGUAL Q5M PRN tablet 07/30/17 Nystatin Powder [Mycostatin Powder] 1 applic TOPICAL BID bottle 07/30/17 Potassium Chloride [K-Dur] 20 meq PO DAILYCM tablet 07/30/17 Primary Care Physician: Jonel Mckeon MD [Primary Care Provider] - Please follow up with your Primary Care Physician in: 1-2 weeks Please Follow Up With: Jonel Hylton MD When: 1-2 weeks Please Follow Up With: Haydee Delgado DO When: 1-2 weeks Disposition: [facility]irement facility Minutes spent on discharge:: 40 Patient Condition:: Stable Meaningful Use Info Meaningful Use Diagnoses (Choose all that apply): AMI - AMI Aspirin given w/in 24hrs of arrival?: Yes ASA at discharge?: Yes Statins at discharge?: Yes Ramon/ARB at discharge?: No Reason Ramon/ARB not ordered:: Worsening renal disease Beta Ceci at discharge?: Yes Done w/ Acute [place] measure.: Yes
--- NOTE | 2017-07-30 13:17 | DS.PCM_ITS ---
Discharge Date and Diagnosis - Problem List Patient Problems: Active and Suspected Problems Elevated troponin I level (Acute) Acute renal failure (Acute) NSTEMI (non-ST elevated myocardial infarction) (Acute) Cardiomyopathy (Acute) KARINE (acute kidney injury) (Acute) Hypernatremia (Acute) Debility (Acute) Date of Admission: 07/22/17 Date of Discharge: 07/30/17 - Primary Discharge Diagnosis Active and Suspected Problems NSTEMI Acute metabolic encephalopathy KARINE Chronic COPD HTN HLD Dementia Depression Iron def. 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 chronic ulcer - Secondary Discharge Diagnosis Chronic Problems Dementia (Chronic) Chronic obstructive pulmonary disease (Chronic) Former tobacco use (Chronic) Dementia (Chronic) Subacute delirium (Chronic) Hypokalemia (Chronic) Constipation (Chronic) GERD (gastroesophageal reflux disease) (Chronic) Iron deficiency anemia (Chronic) Depression (Chronic) Pulmonary embolism (Chronic) History of pulmonary embolism (Chronic) Status post total right knee replacement (Chronic) Hyperlipidemia (Chronic) Hypertension (Chronic) Chronic lower back pain (Chronic) Hospital Course and Treatment Imaging Results: RAD/Chest 1 View (Portable) IMPRESSION: 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 Probable scarring or atelectasis in the right lung base. Echo: Interpretation Summary Severely dilated left ventricle. The estimated ejection fraction is 10-15 %. There is severe global hypokinesis of the left ventricle. Moderately dilated right ventricle. Moderate global right ventricular systolic dysfunction. The left atrium is moderately enlarged. Trivial mitral valve insufficiency. Moderate (2+) tricuspid valve insufficiency. Right ventricular systolic pressure estimated to be 18 mmHg. Pulmonary pressures most likely underestimated. Trivial aortic valve insufficiency. The inferior vena cava is dilated No collapse of the inferior vena cava. Compared to echo report dated 07/12/2016, LV function has markedly deteriorated from 60% to 10-15%. US/Kidney and Bladder IMPRESSION: Simple left renal cortical cyst RAD/Chest 1 View (Portable) IMPRESSION: Bilateral infiltrates or edema and pleural effusions. Consults: Belenw - cardio Danny - nephrology Cebul - surgery Operations: None, - Procedures: 2-D Echocardiogram, - - dialysis cath placement. Summary of Care Provided: Physical exam on day of discharge: General: Resting comfortably NAD Psych: A/Ox3 normal affect HEENT: PEARRLA AT MT Neck: Supple NT CV: RRR no m/t/r/g/h Resp: CTA Abd: [id number] Soft NT no guarding or rigidity Ext: DP2+= no edema Skin: W/D normal turgor Lymph/Heme: No active bleeding or adenopathy Neuro: CN2-12 intact Hospital course: The patient is a 76 year old M with a hx of HTN, HLD, chronic back pain, obesity , PE, COPD, iron def. anemia, who presented to the ER with decreased PO intake, malaise, and decreased urine output. He was found to have low BP 90/53, anemia, EKG with lateral T wave inversions, and elevated BUN and creatinine, elevated BNP, elevated troponin. He was admitted for NSTEMI, and KARINE, with metabolic encephalopathy. Cardiology and nephrology were consulted. Echo showed severely reduced EF at 10-15% and he was felt to have an underlying cardiomyopathy of unclear etiology. Surgery was consulted for placement of a IJ dialysis catheter. His renal function improved with holding his nephrotoxins and giving him IV fluids. Renal US was negative. Due to his underlying dementia, aggressive intervention such as cardiac catheterization was not recommended by cardiology at this time. He remained clinically stable and assisted was recommended. This was arranged for him. His renal function was able to recover without any need for dialysis at this time. In the IJ was discontinued. He was discharged to TCU in stable condition. He will need to follow-up with nephrology, cardiology, his PCP. This patient was seen by Isra Mendosa PA-C under the supervision of Doctor Amy. [] Discharge Diet: Low fat/ Low Cholesterol, 2000 mg Sodium Diet Discharge Activity: Return to Normal Activity Home Medications: Medications to take at Discharge Duloxetine Hcl [Cymbalta] 60 mg PO DAILY 07/11/16 Omeprazole [Prilosec] 40 mg PO DAILY 09/20/16 Memantine HCl/Donepezil HCl [Namzaric 28 mg-10 mg Capsule] 1 each PO QHS Multivit-Min/FA/Lycopen/Lutein [Centrum Silver Tablet] 1 each PO DAILY 07/22/17 Oxycodone Myristate [Xtampza ER] 18 mg PO BID 07/22/17 Albuterol Aerosols [Ventolin Aerosols] 2.5 mg INHALATION Q2H PRN PRN vial.neb. 07/30/17 Aspirin E.C. [Ecotrin] 81 mg PO DAILY@0800 tablet 07/30/17 Atorvastatin Calcium [Lipitor] 40 mg PO QHS tablet 07/30/17 Carvedilol [Coreg (Beta Ceci)] 6.25 mg PO BID tablet 07/30/17 HydrALAZINE [Apresoline] 10 mg PO TID tablet 07/30/17 Ipratropium/Albuterol Sulfate [Duoneb] 3 ml INHALATION Q6HWA.RT ampul.neb 07/30 Mag Hydrox/Al Hydrox/Simeth [Mylanta II] 30 ml PO Q6H PRN PRN udc 07/30/17 Magnesium Hydroxide [Milk Of Magnesia] 30 ml PO DAILY PRN PRN udc 07/30/17 Nitroglycerin [Nitrostat] 0.4 mg SUBLINGUAL Q5M PRN tablet 07/30/17 Nystatin Powder [Mycostatin Powder] 1 applic TOPICAL BID bottle 07/30/17 Potassium Chloride [K-Dur] 20 meq PO DAILYCM tablet 07/30/17 Primary Care Physician: Jonel Mckeon MD [Primary Care Provider] - Please follow up with your Primary Care Physician in: 1-2 weeks Please Follow Up With: Jonel Hylton MD When: 1-2 weeks Please Follow Up With: Haydee Delgado DO When: 1-2 weeks Disposition: [facility] facility Minutes spent on discharge:: 40 Patient Condition:: Stable Meaningful Use Info Meaningful Use Diagnoses (Choose all that apply): AMI - AMI Aspirin given w/in 24hrs of arrival?: Yes ASA at discharge?: Yes Statins at discharge?: Yes Ramon/ARB at discharge?: No Reason Ramon/ARB not ordered:: Worsening renal disease Beta Ceci at discharge?: Yes Done w/ Acute [place] measure.: Yes
--- NOTE | 2017-07-30 13:35 | CASEMGMT ---
SW spoke with patient's and let her know TCU will have a bed for patient today. She asked SW who she talks with about d/c when he is ready to leave TCU. BARBARA told her she would talk with Giselle, the SW in TCU. She thanked BARBARA. Plan: [facility] TCU under skilled level of care. Valentina BALBUENA MSW
--- NOTE | 2017-07-30 14:13 | PCM.PN.REN ---
Patient Problems: Active and Suspected Problems Elevated troponin I level (Acute) Acute renal failure (Acute) NSTEMI (non-ST elevated myocardial infarction) (Acute) Cardiomyopathy (Acute) KARINE (acute kidney injury) (Acute) Hypernatremia (Acute) Debility (Acute) Subjective: remains confused, disoriented despite renal function back to baseline. at bedside, states mental status not at baseline. Camara catheter removed. No urine output yet. Complains of thirst, fatigue. Three person assist to chair. Scheduled to transfer to TCU - Physical Exam General: Alert, Confused, Disoriented Oral: Dry Mucosa Lungs: Clear to auscultation Cardiovascular: Regular rate Abdomen: Bowel Sounds Present, Soft, Non Tender, Non-Distended Extremities: Edema - mild RLE Vital Signs Temp Pulse Resp BP Pulse Ox 97.9 F 89 16 102/78 98 07/30/17 12:20 07/30/17 12:20 07/30/17 12:20 07/30/17 12:20 07/30/17 12:20 Oxygen Flow Rate 2 Oxygen Delivery Method Nasal Cannula Weight: 87.1 kg Body Mass Index (BMI) 26.9 Intake and Output for Last 24 Hours 07/28/17 07/29/17 07/30/17 23:59 23:59 23:59 Intake Total 1865.1 / 1865.1 1984 Output Total 2655 / 2655 1765 / 1765 350 / 350 Balance -789.9 / -789.9 220 / 220 -350 / -350 Laboratory Tests Past 24 Hrs 07/30/17 05:10 Sodium 144 Potassium 3.3 L Chloride 107 Carbon Dioxide 28.0 Anion Gap 9 BUN 43 H Creatinine 1.08 Estim Creat Clear Calc 62.94 Est GFR (MDRD) Af Amer 86 Est GFR (MDRD) Non-Af 71 BUN/Creatinine Ratio 39.8 H Glucose 99 Calcium 8.5 Assessment/Plan Active and Suspected Problems Elevated troponin I level (Acute) Acute renal failure (Acute) NSTEMI (non-ST elevated myocardial infarction) (Acute) Cardiomyopathy (Acute) KARINE (acute kidney injury) (Acute) Hypernatremia (Acute) Debility (Acute) 1. KARINE due to prerenal azotemia, biventricular failure, NSTEMI with baseline creatinine 0.9-1.0 in Jun 20172016. Renal function to baseline. Ok to DC tunneled dialysis catheter. No need for dialysis. 2. Acute NSTEMI with severe cardiomyopathy, biventricular failure. No aggressive intervention at this time. Continue medical management. Change to po lasix 3. Remote history of pulmonary embolus which may be contributing to his RHF. consider venous US BLE 4. Metabolic encephalopathy with underlying dementia. Continue to monitor. Remains confused, disoriented dispite renal function back to baseline. 5. Hypernatremia improved, on thickened liquids. DC fluid restriction. 6. Severe debilitation with aspiration risk on thickened liquids. Patient DNR CCA. Okay to transfer to TCU from renal standpoint. DW primary care service, surgery PA, nursing and pt spouse at bedside.
[2017-07-30] MEDS: oxyCODONE 5 MG Tablet 10 MG PO (16:06)
--- NOTE | 2017-07-30 16:42 | NURSING ---
Dr. Polk at bedside, removed temp dialysis cath.
--- NOTE | 2017-07-30 16:46 | PCM.OPRPT ---
Problem List (1) Acute renal failure Status: Acute Qualifiers: Acute renal failure type: unspecified Qualified Code(s): N17.9 - Acute kidney failure, unspecified Report of Operation Date of Procedure: 07/30/17 Pre-Operative Diagnosis: Acute renal failure Post-Operative Diagnosis: Same Surgery/Procedure Performed:: removal of Right internal jugular tunneled 19 cm pre-curved palindrome catheter Type of Anesthesia:: None Description of Procedure: Patient's tunneled dialysis catheter was on the right chest. I removed the stay suture and pulled the catheter out and one single motion. Sterile dressing was applied pressure was applied and the patient tolerated the procedure well. There was no bleeding during the procedure - Admit VTE Documentation VTE Present on Admission: No VTE Mechan Device Prophylaxis: None VTE Pharm Prophylaxis ordered?: No Reason prophylaxis not ordered:: Treatment Not Indicated
== END 2017-07-30 17:54 | disposition skilled nursing facility (03) | DRG 280 ==
LOC: ED 20:26 → PCU 20:38
PROVIDERS: Internal Medicine; Internal Medicine Nephrology; Surgery; Admitting Provider Family Medicine; Emergency Provider Emergency Medicine; Family Provider Family Medicine; PCP Family Medicine; Visit Provider Internal Medicine
PROC: 02HV33Z Insertion of Infusion Device into Superior Vena Cava, Percutaneous Approach (ICD-10-PCS; principal; 2017-07-26 13:45)
DX: I21.4 Non-ST elevation (NSTEMI) myocardial infarction (principal); G93.41 Metabolic encephalopathy; N17.9 Acute kidney failure, unspecified; E87.0 Hyperosmolality and hypernatremia; I42.9 Cardiomyopathy, unspecified; J44.9 Chronic obstructive pulmonary disease, unspecified; F03.90 Unspecified dementia, unspecified severity, without behavioral disturbance, psychotic disturbance, mood disturbance, and anxiety; Z87.891 Personal history of nicotine dependence; E78.5 Hyperlipidemia, unspecified; G89.29 Other chronic pain; M54.9 Dorsalgia, unspecified; F32.9 Major depressive disorder, single episode, unspecified; R53.81 Other malaise; K21.9 Gastro-esophageal reflux disease without esophagitis; D50.9 Iron deficiency anemia, unspecified; M21.371 Foot drop, right foot; Z86.711 Personal history of pulmonary embolism; Z96.651 Presence of right artificial knee joint; Z66 Do not resuscitate; I10 Essential (primary) hypertension
CPT/HCPCS: 36415; 71045; 76000; 76770; 80048; 80053; 80061; 80069; 81001; 82570; 83735; 83880; 84156; 84300; 84443; 84484; 85025; 85610; 85730; 92526; 93005; 93306; 94640; 94762; 97110; 97162; 97166; 97530; 97535; 97802; 99285; J7030; Q9957; A4216; C1750; J1940

== ENCOUNTER 2017-07-30 18:10 | Inpatient (IN) | payer MEDICARE, OTHER, SELFPAY ==
[2017-07-30 18:32] VITALS: BP 102/39; PULSE 78; RESP 18; TEMP 37.2; O2SAT 99; BMI 29.1
--- NOTE | 2017-07-30 18:32 | NURSING ---
pt arrived via bed from [facility]
[2017-07-30 19:42] VITALS: BMI 29.0
--- NOTE | 2017-07-30 20:49 | PCM.HP.STD ---
Problem List (1) Somnolence Status: Acute (2) Acute on chronic systolic heart failure Status: Acute (3) Skin cancer Status: Chronic (4) Anemia Status: Chronic (5) Low back pain Status: Chronic (6) Sciatica Status: Chronic (7) Alzheimers disease Status: Acute (8) NSTEMI (non-ST elevated myocardial infarction) Status: Acute (9) KARINE (acute kidney injury) Status: Acute (10) Constipation Status: Chronic Qualifiers: (11) GERD (gastroesophageal reflux disease) Status: Chronic Qualifiers: (12) Iron deficiency anemia Status: Chronic Qualifiers: (13) Depression Status: Chronic Qualifiers: (14) Pulmonary embolism Status: Chronic (15) Hyperlipidemia Status: Chronic Qualifiers: (16) Hypertension Status: Chronic Qualifiers: History of Present Illness Date of Admission: 07/30/17 Chief Complaint: Here for rehabilitation, strengthening, prior to discharge home with spouse. The patient is a 76 year old Male with below past medical history presented to [facility] Emergency Department 07/22/2017 with somnolence, decreased energy. Fatigue, decreased stamina for several days. Decreased oral intake. Leg swelling increased, legs elevated, HCTZ increased without improvement. Shortness of breath with ambulation. Myalgias, worse in joints. EKG Normal Sinus rhythm, heart rate 84, PVC's, Lateral T wave inversions. Chest X-ray showed fibrosis. WBC normal, Hemoglobin 10.5, BUN 95, Cr 2.64. Troponin1.2, BNP 2095. Gentle IV fluids given. 07/22/2017 Admit to Hospital. Consult cardiology for NSTEMI. Gentle IV fluids for acute kidney failure. Echo for acute congestive heart failure. 07/23/2017 Dr. Salcido recommended stress test later, cardiac catheterization not recommended. 07/23/2017 Echo severe dilated left ventricle. EF 10 to 15% Right ventricular systolic pressure 18mm HG. Severe global hypokinesis Left Ventricle. 07/24/2017 Renal ultrasound simple left renal cortical cyst. 07/25/2017 Dr. Delgado recommended gentle IV hydration Hold Lisinopril, sister requesting hemodialysis. 07/26/2017 Dr. Alaniz perfromed right IJ tunneled catheter insertion. Kidney failure improved with IV fluids, holding nephrotoxins. Cardiac catheterization not recommended. 07/30/2017 Dr. Polk removed right IJ tunneled catheter. 07/30/2017 Admit to TCU for rehabilitation, strengthening, prior to discharge home with spouse. Past Medical History Past Medical History (Chronic Problems): Chronic Problems Dementia (Chronic) Chronic obstructive pulmonary disease (Chronic) Former tobacco use (Chronic) Dementia (Chronic) Skin cancer (Chronic) Anemia (Chronic) Low back pain (Chronic) Sciatica (Chronic) Subacute delirium (Chronic) Hypokalemia (Chronic) Constipation (Chronic) GERD (gastroesophageal reflux disease) (Chronic) Iron deficiency anemia (Chronic) Depression (Chronic) Pulmonary embolism (Chronic) History of pulmonary embolism (Chronic) Status post total right knee replacement (Chronic) Hyperlipidemia (Chronic) Hypertension (Chronic) Chronic lower back pain (Chronic) Allergies hydrocodone [From Vicodin] Adverse Reaction (Verified 07/22/17 17:19) Itching lorazepam [From Ativan] Adverse Reaction (Verified 07/22/17 17:19) Other MAKES ME CRAZY morphine Adverse Reaction (Verified 07/22/17 17:19) Other MAKES HIM CRAZY PER Home Medications: Ambulatory Orders Medication Instructions Recorded Duloxetine Hcl [Cymbalta] 60 mg PO DAILY 07/11/16 Omeprazole [Prilosec] 40 mg PO DAILY 09/20/16 Memantine HCl/Donepezil HCl 1 each PO QHS 07/22/17 [Namzaric 28 mg-10 mg Capsule] Multivit-Min/FA/Lycopen/Lutein 1 each PO DAILY 07/22/17 [Centrum Silver Tablet] Oxycodone Myristate [Xtampza ER] 18 mg PO BID 07/22/17 Albuterol Aerosols [Ventolin 2.5 mg INHALATION Q2H PRN PRN 07/30/17 Aerosols] vial.neb. Aspirin E.C. [Ecotrin] 81 mg PO DAILY@0800 07/30/17 Atorvastatin Calcium [Lipitor] 40 mg PO QHS 07/30/17 Carvedilol [Coreg (Beta Ceci)] 6.25 mg PO BID 07/30/17 Furosemide [Lasix] 40 mg PO DAILY 07/30/17 HydrALAZINE [Apresoline] 10 mg PO TID 07/30/17 Ipratropium/Albuterol Sulfate 3 ml INHALATION Q6HWA.RT 07/30/17 [Duoneb] Mag Hydrox/Al Hydrox/Simeth 30 ml PO Q6H PRN PRN udc 07/30/17 [Mylanta II] Magnesium Hydroxide [Milk Of 30 ml PO DAILY PRN PRN udc 07/30/17 Magnesia] Nitroglycerin [Nitrostat] 0.4 mg SUBLINGUAL Q5M PRN tablet 07/30/17 Nystatin Powder [Mycostatin Powder] 1 applic TOPICAL BID 07/30/17 Potassium Chloride [K-Dur] 20 meq PO DAILYCM 07/30/17 Surgical History: appendectomy, cholecystectomy, herniorrhaphy, total hip arthroplasty - Right, 2011., total knee arthroplasty - 2011, then 09/27/2016., tonsillectomy, - - Laminectomy 1974, Spinal fusion L4, L5, S1 1979, Right knee antibiotic spacer 07/12/2016 Dr. Perea. Psychiatric History: Depression Lives: Spouse/ Significant Other Smoking Status: Former smoker Tobacco Use: Non-smoker Alcohol: Rare Drugs: None - *Family History Maternal History Items: Dementia Paternal History Items: Cancer - Father age 47 from liver CA. Review of Systems Constitutional: Denies: Chills, Fever, Weight Change HEENT: Denies: Head Aches, Sinus Congestion, Sinus Drainage Cardiovascular: Denies: Chest Pain, Palpitations Respiratory: Denies: Cough, Shortness of breath at rest, Sputum production Gastrointestinal: Denies: Abdominal Pain, Nausea, Vomiting Genitourinary: Denies: Dysuria Musculoskeletal: Reports: Muscle pain - Pain all over.. Denies: Joint Pain, Joint Tenderness Skin: Denies: Rash, Wounds Neurological: Denies: Numbness, Tingling, Focal weakness Psychiatric: Denies: Anxiety, Depression, Homicidal Ideations, Suicidal Ideations Hematologic/ Lymphatic: Denies: Easy Bruising, Easy Bleeding VTE Information - Inpt Only VTE Present on Admission: No VTE Mechan Device Prophylaxis: Knee High ARGENIS Hose VTE Pharm Prophylaxis ordered?: Yes Patient Problems: Active and Suspected Problems Somnolence (Acute) Acute on chronic systolic heart failure (Acute) Alzheimers disease (Acute) - Physical Exam General: Alert, Oriented x3, Cooperative HEENT: Atraumatic, PERRLA, EOMI, Normocephalic Neck: Supple, No JVD, Negative Carotid Bruits Lungs: Clear to auscultation, Normal air movement Cardiovascular: Regular rate, No murmurs Abdomen: Bowel Sounds Present, Soft, Non Tender Extremities: Capillary Refill Less than 3 Seconds, Edema - Trace bilateral. Skin: No rashes, No breakdown Musculoskeletal: No Tenderness to Palpation of Joints or Extremities Neurological: Cranial nerves II-XII grossly intact Psych/Mental Status: Normal Affect, Appropriate Vital Signs Temp Pulse Resp BP Pulse Ox 98.9 F 78 18 102/39 L 99 07/30/17 18:32 07/30/17 18:32 07/30/17 18:32 07/30/17 18:32 07/30/17 18:32 Oxygen Flow Rate 2 Oxygen Delivery Method Nasal Cannula Weight: 97.2 kg Body Mass Index (BMI) 29.0 Assessment/Plan Active and Suspected Problems Somnolence (Acute) Acute on chronic systolic heart failure (Acute) Alzheimers disease (Acute) 76 year old male with below past medical history hospitalized for acute kidney injury, NSTEMI, acute on chronic systolic heart failure, cardiac catheterization not recommended, admitted to TCU for debility, rehabilitation, strengthening, prior to discharge home with spouse. Debility - PT/OT. Dysphagia - ST. Pain - Tylenol 1000MG Q8H PRN mild pain, Oxycontin 20MG Q12H, Oxycodone 10MG TID, Medrol dosepak. Bowel - Miralax 17GM daily, Senna/colace 2 tablets BID, Dulcolax 10MG OH daily PRN. Pneumonia vaccination - Administer Prevnar 13 and/or Pneumovax 23 as necessary. DVT prophylaxis - Lovenox 40MG SC daily. COPD - Duoneb 3ML Q6H, Albuterol 2.5MG Q2H PRN. NSTEMI - Coreg 6.25MG BID, Aspirin 81MG daily, NTG 0.4MG SL Q5M PRN. Hyperlipidemia - Atorvastatin 40MG QHS. Depression - Duloxetine 60MG daily. Acute on chronic systolic heart failure - Coreg 6.25MG BID, stop Hydralazine 10MG TID due to hypotension, continue Lasix 40MG daily. Start Entresto 24/26MG BID. Alzheimer's Disease - Possible subacute delirium, stop Namzaric for now. Nutrition - MVI daily. Tinea Corporis - Nystatin BID groin, abdominal folds. GERD - Pantoprazole 40MG daily. Hypokalemia - K-Dur 20MEQ daily.
[2017-07-30 20:54] VITALS: PULSE 78
[2017-07-30] MEDS: Atorvastatin Calcium 40 MG Tablet PO (20:54)
--- NOTE | 2017-07-30 21:00 | HP.PCM_ITS ---
Problem List (1) Somnolence Status: Acute (2) Acute on chronic systolic heart failure Status: Acute (3) Skin cancer Status: Chronic (4) Anemia Status: Chronic (5) Low back pain Status: Chronic (6) Sciatica Status: Chronic (7) Alzheimers disease Status: Acute (8) NSTEMI (non-ST elevated myocardial infarction) Status: Acute (9) KARINE (acute kidney injury) Status: Acute (10) Constipation Status: Chronic Qualifiers: (11) GERD (gastroesophageal reflux disease) Status: Chronic Qualifiers: (12) Iron deficiency anemia Status: Chronic Qualifiers: (13) Depression Status: Chronic Qualifiers: (14) Pulmonary embolism Status: Chronic (15) Hyperlipidemia Status: Chronic Qualifiers: (16) Hypertension Status: Chronic Qualifiers: History of Present Illness Date of Admission: 07/30/17 Chief Complaint: Here for rehabilitation, strengthening, prior to discharge home with spouse. The patient is a 76 year old Male with below past medical history presented to [facility] Emergency Department 07/22/2017 with somnolence, decreased energy. Fatigue, decreased stamina for several days. Decreased oral intake. Leg swelling increased, legs elevated, HCTZ increased without improvement. Shortness of breath with ambulation. Myalgias, worse in joints. EKG Normal Sinus rhythm, heart rate 84, PVC's, Lateral T wave inversions. Chest X-ray showed fibrosis. WBC normal, Hemoglobin 10.5, BUN 95, Cr 2.64. Troponin1.2, BNP 2095. Gentle IV fluids given. 07/22/2017 Admit to Hospital. Consult cardiology for NSTEMI. Gentle IV fluids for acute kidney failure. Echo for acute congestive heart failure. 07/23/2017 Dr. Salcido recommended stress test later, cardiac catheterization not recommended. 07/23/2017 Echo severe dilated left ventricle. EF 10 to 15% Right ventricular systolic pressure 18mm HG. Severe global hypokinesis Left Ventricle. 07/24/2017 Renal ultrasound simple left renal cortical cyst. 07/25/2017 Dr. Delgado recommended gentle IV hydration Hold Lisinopril, sister requesting hemodialysis. 07/26/2017 Dr. Alaniz perfromed right IJ tunneled catheter insertion. Kidney failure improved with IV fluids, holding nephrotoxins. Cardiac catheterization not recommended. 07/30/2017 Dr. Polk removed right IJ tunneled catheter. 07/30/2017 Admit to TCU for rehabilitation, strengthening, prior to discharge home with spouse. Past Medical History Past Medical History (Chronic Problems): Chronic Problems Dementia (Chronic) Chronic obstructive pulmonary disease (Chronic) Former tobacco use (Chronic) Dementia (Chronic) Skin cancer (Chronic) Anemia (Chronic) Low back pain (Chronic) Sciatica (Chronic) Subacute delirium (Chronic) Hypokalemia (Chronic) Constipation (Chronic) GERD (gastroesophageal reflux disease) (Chronic) Iron deficiency anemia (Chronic) Depression (Chronic) Pulmonary embolism (Chronic) History of pulmonary embolism (Chronic) Status post total right knee replacement (Chronic) Hyperlipidemia (Chronic) Hypertension (Chronic) Chronic lower back pain (Chronic) Allergies hydrocodone [From Vicodin] Adverse Reaction (Verified 07/22/17 17:19) Itching lorazepam [From Ativan] Adverse Reaction (Verified 07/22/17 17:19) Other MAKES ME CRAZY morphine Adverse Reaction (Verified 07/22/17 17:19) Other MAKES HIM CRAZY PER Home Medications: Ambulatory Orders Medication Instructions Recorded Duloxetine Hcl [Cymbalta] 60 mg PO DAILY 07/11/16 Omeprazole [Prilosec] 40 mg PO DAILY 09/20/16 Memantine HCl/Donepezil HCl 1 each PO QHS 07/22/17 [Namzaric 28 mg-10 mg Capsule] Multivit-Min/FA/Lycopen/Lutein 1 each PO DAILY 07/22/17 [Centrum Silver Tablet] Oxycodone Myristate [Xtampza ER] 18 mg PO BID 07/22/17 Albuterol Aerosols [Ventolin 2.5 mg INHALATION Q2H PRN PRN 07/30/17 Aerosols] vial.neb. Aspirin E.C. [Ecotrin] 81 mg PO DAILY@0800 07/30/17 Atorvastatin Calcium [Lipitor] 40 mg PO QHS 07/30/17 Carvedilol [Coreg (Beta Ceci)] 6.25 mg PO BID 07/30/17 Furosemide [Lasix] 40 mg PO DAILY 07/30/17 HydrALAZINE [Apresoline] 10 mg PO TID 07/30/17 Ipratropium/Albuterol Sulfate 3 ml INHALATION Q6HWA.RT 07/30/17 [Duoneb] Mag Hydrox/Al Hydrox/Simeth 30 ml PO Q6H PRN PRN udc 07/30/17 [Mylanta II] Magnesium Hydroxide [Milk Of 30 ml PO DAILY PRN PRN udc 07/30/17 Magnesia] Nitroglycerin [Nitrostat] 0.4 mg SUBLINGUAL Q5M PRN tablet 07/30/17 Nystatin Powder [Mycostatin Powder] 1 applic TOPICAL BID 07/30/17 Potassium Chloride [K-Dur] 20 meq PO DAILYCM 07/30/17 Surgical History: appendectomy, cholecystectomy, herniorrhaphy, total hip arthroplasty - Right, 2011., total knee arthroplasty - 2011, then 09/27/2016., tonsillectomy, - - Laminectomy 1974, Spinal fusion L4, L5, S1 1979, Right knee antibiotic spacer 07/12/2016 Dr. Perea. Psychiatric History: Depression Lives: Spouse/ Significant Other Smoking Status: Former smoker Tobacco Use: Non-smoker Alcohol: Rare Drugs: None - *Family History Maternal History Items: Dementia Paternal History Items: Cancer - Father age 47 from liver CA. Review of Systems Constitutional: Denies: Chills, Fever, Weight Change HEENT: Denies: Head Aches, Sinus Congestion, Sinus Drainage Cardiovascular: Denies: Chest Pain, Palpitations Respiratory: Denies: Cough, Shortness of breath at rest, Sputum production Gastrointestinal: Denies: Abdominal Pain, Nausea, Vomiting Genitourinary: Denies: Dysuria Musculoskeletal: Reports: Muscle pain - Pain all over.. Denies: Joint Pain, Joint Tenderness Skin: Denies: Rash, Wounds Neurological: Denies: Numbness, Tingling, Focal weakness Psychiatric: Denies: Anxiety, Depression, Homicidal Ideations, Suicidal Ideations Hematologic/ Lymphatic: Denies: Easy Bruising, Easy Bleeding VTE Information - Inpt Only VTE Present on Admission: No VTE Mechan Device Prophylaxis: Knee High ARGENIS Hose VTE Pharm Prophylaxis ordered?: Yes Patient Problems: Active and Suspected Problems Somnolence (Acute) Acute on chronic systolic heart failure (Acute) Alzheimers disease (Acute) - Physical Exam General: Alert, Oriented x3, Cooperative HEENT: Atraumatic, PERRLA, EOMI, Normocephalic Neck: Supple, No JVD, Negative Carotid Bruits Lungs: Clear to auscultation, Normal air movement Cardiovascular: Regular rate, No murmurs Abdomen: Bowel Sounds Present, Soft, Non Tender Extremities: Capillary Refill Less than 3 Seconds, Edema - Trace bilateral. Skin: No rashes, No breakdown Musculoskeletal: No Tenderness to Palpation of Joints or Extremities Neurological: Cranial nerves II-XII grossly intact Psych/Mental Status: Normal Affect, Appropriate Vital Signs Temp Pulse Resp BP Pulse Ox 98.9 F 78 18 102/39 L 99 07/30/17 18:32 07/30/17 18:32 07/30/17 18:32 07/30/17 18:32 07/30/17 18:32 Oxygen Flow Rate 2 Oxygen Delivery Method Nasal Cannula Weight: 97.2 kg Body Mass Index (BMI) 29.0 Assessment/Plan Active and Suspected Problems Somnolence (Acute) Acute on chronic systolic heart failure (Acute) Alzheimers disease (Acute) 76 year old male with below past medical history hospitalized for acute kidney injury, NSTEMI, acute on chronic systolic heart failure, cardiac catheterization not recommended, admitted to TCU for debility, rehabilitation, strengthening, prior to discharge home with spouse. * Debility - PT/OT. * Dysphagia - ST. * Pain - Tylenol 1000MG Q8H PRN mild pain, Oxycontin 20MG Q12H, Oxycodone 10MG TID, Medrol dosepak. * Bowel - Miralax 17GM daily, Senna/colace 2 tablets BID, Dulcolax 10MG MT daily PRN. * Pneumonia vaccination - Administer Prevnar 13 and/or Pneumovax 23 as necessary. * DVT prophylaxis - Lovenox 40MG SC daily. * COPD - Duoneb 3ML Q6H, Albuterol 2.5MG Q2H PRN. * NSTEMI - Coreg 6.25MG BID, Aspirin 81MG daily, NTG 0.4MG SL Q5M PRN. * Hyperlipidemia - Atorvastatin 40MG QHS. * Depression - Duloxetine 60MG daily. * Acute on chronic systolic heart failure - Coreg 6.25MG BID, stop Hydralazine 10MG TID due to hypotension, continue Lasix 40MG daily. Start Entresto 24/26MG BID. * Alzheimer's Disease - Possible subacute delirium, stop Namzaric for now. * Nutrition - MVI daily. * Tinea Corporis - Nystatin BID groin, abdominal folds. * GERD - Pantoprazole 40MG daily. * Hypokalemia - K-Dur 20MEQ daily.
--- NOTE | 2017-07-30 21:30 | RAD_ITS ---
STUDY: X-RAY - ABDOMEN/PELVIS REASON FOR EXAM: Male, 76 years old. Constipation TECHNIQUE: Supine views of the abdomen and pelvis were obtained. COMPARISON: October 23, 2012 FINDINGS: There is minimal blunting of the right costophrenic angle. The heart is enlarged. There is an unremarkable bowel gas pattern. There is no demonstrated free abdominal air. There is no demonstrated abnormality of the major organs. Cholecystectomy clips are present. There are marked vascular calcifications. The soft tissues are unremarkable. There are marked degenerative changes in the visualized spine. There is scoliosis of the lower spine. Prostheses are present in the right hip. RAD/Abdomen Single View (Portable) IMPRESSION: No acute abnormalities are seen in the abdomen or pelvis. There is moderate stool in the rectum. A small right pleural effusion cannot be excluded. Electronically Signed: Ángela Rivera MD at 22:24 EST Tel Direct: [phone], Service support ,
[2017-07-30] MEDS: oxyCODONE 5 MG Tablet 10 MG PO (22:33)
[2017-07-31 01:12] VITALS: PULSE 111; RESP 18; O2SAT 90
[2017-07-31] MEDS: Ipratropium/Albuterol Sulfate 3 ML AMPUL.NEB INHALATION ×4 (01:12→19:10)
[2017-07-31] MEDS: oxyCODONE 5 MG Tablet 10 MG PO ×3 (05:26→21:52)
[2017-07-31] MEDS: SACUBITRIL/VALSARTAN 24/26 MG TABLET 1 EACH PO ×2 (05:29→17:14)
[2017-07-31] MEDS: Enoxaparin 40 MG/0.4 ML Syringe SC (05:29)
[2017-07-31] MEDS: Nystatin Powder 15gm Bottle 1 APPLIC TOPICAL ×2 (05:30→21:58)
[2017-07-31] MEDS: DULoxetine Hcl 60 MG Capsule PO (05:30)
[2017-07-31] MEDS: Carvedilol 6.25 MG Tablet PO ×2 (05:30→17:14)
[2017-07-31] MEDS: Pantoprazole Sodium 40 MG Tablet PO (05:30)
[2017-07-31] MEDS: Furosemide 40 MG Tablet PO (05:30)
[2017-07-31 06:27] LABS: Absolute Lymphocyte Count 2.54 X10^3/ul (0.83-4.51); Absolute Neutrophil Count 11.8 X10^3/uL (2.0-7.7); Basophil# 0.01 X10^3/uL; Basophil% 0.1 % (0-1); Eosinophil# 0.03 X10^3/uL; Eosinophils% 0.2 % (0-5); Hematocrit 33.4 % (40-54); Lymphocyte # 2.54 X10^3/ul (4.0); Lymphocyte % 16.4 % (19-41); Mean Corp Hgb Conc 29.9 g/gl (32-36); Mean Corpuscular Hgb 24.6 pg (27.0-32.0); Mean Corpuscular Volume 82.3 fL (80-94); Mean Platelet Vol. 9.8 fl (6.2-12.0); Monocyte% 6.5 % (0-10); Neutrophil # 11.83 X10^3/uL (2.7-7.7); Neutrophil % 76.3 % (47-70); Platelet Count 318 K/mm3 (150-450); RBC Distribution Width SD 50.9 fl (35.1-43.9); Red Blood Count 4.06 M/mm3 (4.6-6.2); White Blood Count 15.5 K/mm3 (4.4-11.0)
[2017-07-31 06:28] LABS: Anion Gap 10 (5-15); BUN 54 mg/dL (7-18); BUN/Creat Ratio 43.2 RATIO (10-20); Calcium,Total 8.4 mg/dL (8.5-10.1); Chloride 107 mmol/L (98-107); Creatinine, Serum 1.25 mg/dL (0.70-1.30); EST Glomerular Filtration Rate 60 mL/min (>60); Est Glom Filt Rate - Afr Amer 72 mL/min (>60); Estimated Creatinine Clearance 56.04 ml/min; Glucose 115 mg/dL (74-106); POSITIVE COUNT NO; POSITIVE DIFFERENTIAL NO; POSITIVE MORPHOLOGY NO; Sodium Level 144 mmol/L (136-145)
[2017-07-31 06:29] LABS: Absolute Nucleated RBC Count 0.06 10^3/uL (0-5); NRBC Flagged by Analyzer 0.4 % (0-5)
[2017-07-31 06:55] VITALS: PULSE 95; RESP 18; O2SAT 95
[2017-07-31] MEDS: Aspirin E.C. 81 MG Tablet PO (08:03)
[2017-07-31] MEDS: MethylPREDNISolone DosePak 4 MG BOX 8 MG PO ×4 (08:03→21:54)
[2017-07-31] MEDS: Multivitamins,Ther W-Minerals Tablet 1 TABLET PO (08:03)
--- NOTE | 2017-07-31 09:37 | NURSING ---
dr odonnell aware of kub results, new order for soap suds enema. will administer when done with therapy
[2017-07-31] MEDS: Tuberculin,Purif.prot.deriv. 50 TU/ML Vial 5 ML ID (10:28)
[2017-07-31 13:05] VITALS: PULSE 93; RESP 20
[2017-07-31 15:24] VITALS: BP 91/46; PULSE 77; RESP 24; TEMP 36.8; O2SAT 99
[2017-07-31] MEDS: Senna/Docusate Sodium 1 Tablet 2 TABLET PO (17:14)
--- NOTE | 2017-07-31 17:34 | NURSING ---
Addendum entered by Ana Maria Rinaldi 07/31/17 17:35: Oxycontin tablet that was attempted to be crushed, wasted down sink by this nurse and Lissette Dominguez RN. Original Note: Unable to crush Oxycontin tablet and resident unable to swallow pill. Dr Kay aware and orders to d/c Oxycontin and start Fentanyl Patch 25 mcg Q 72hrs.
[2017-07-31] MEDS: fentaNYL 25 MCG Patch TRANSDERM. (18:24)
[2017-07-31] MEDS: Acetaminophen 500 MG Tablet 1000 MG PO (18:26)
[2017-07-31 19:10] VITALS: PULSE 78; RESP 20; O2SAT 99
--- NOTE | 2017-07-31 19:52 | NURSING ---
Clarified with Dr. Kay about Fentanyl Patch and scheduled Oxyir. Dr. Kay states that he wants both scheduled.
[2017-07-31] MEDS: Atorvastatin Calcium 40 MG Tablet PO (21:52)
[2017-07-31] MEDS: Menthol/Lanolin/Calamine/Znox 113 GM Tube 1 APPLIC TOPICAL (22:00)
--- NOTE | 2017-08-01 05:00 | NURSING ---
Addendum entered by Mely Núñez 08/01/17 07:01: was notified at 0515 and stated she would be in. Original Note: Patient noted to be lethargic and very unresponsive. Patient's blood pressure 120/32 P 70 O2 72 on RA. Patient placed on 2 Liters of O2. Patient's O2 increased then went down to 60s. Patient O2 mask placed. Patient continues to be unresponsive and lethargic. WASH OIL COOLER OPERATOR initiated.
--- NOTE | 2017-08-01 07:08 | PCA ---
at aprox. 5am. I entered res. room to wash him for the day, res didnt look good, I then asked rn. kemp to come look at him, she went into the room and asked me to get vitals, as I was going to get the machine, I asked Kath to look at the res, Kath the touched the res, res was cold to touch, Kalie. then asked carpenter supervisordebbie Walls to call a BATTER SCALER. res transfered to ed.
--- NOTE | 2017-08-01 08:08 | DCINST_ITS ---
Allergies/Adverse Reactions: Allergies hydrocodone [From Vicodin] Adverse Reaction (Verified 08/01/17 05:25) Itching lorazepam [From Ativan] Adverse Reaction (Verified 08/01/17 05:25) Other MAKES ME CRAZY morphine Adverse Reaction (Verified 08/01/17 05:25) Other MAKES HIM CRAZY PER Medications to take at Discharge Duloxetine Hcl [Cymbalta] 60 mg PO DAILY 07/11/16 Omeprazole [Prilosec] 40 mg PO DAILY 09/20/16 Memantine HCl/Donepezil HCl [Namzaric 28 mg-10 mg Capsule] 1 each PO QHS Multivit-Min/FA/Lycopen/Lutein [Centrum Silver Tablet] 1 each PO DAILY 07/22/17 Oxycodone Myristate [Xtampza ER] 18 mg PO BID 07/22/17 Albuterol Aerosols [Ventolin Aerosols] 2.5 mg INHALATION Q2H PRN PRN vial.neb. 07/30/17 Aspirin E.C. [Ecotrin] 81 mg PO DAILY@0800 07/30/17 Atorvastatin Calcium [Lipitor] 40 mg PO QHS 07/30/17 Carvedilol [Coreg (Beta Ceci)] 6.25 mg PO BID 07/30/17 Furosemide [Lasix] 40 mg PO DAILY 07/30/17 HydrALAZINE [Apresoline] 10 mg PO TID 07/30/17 Ipratropium/Albuterol Sulfate [Duoneb] 3 ml INHALATION Q6HWA.RT 07/30/17 Mag Hydrox/Al Hydrox/Simeth [Mylanta II] 30 ml PO Q6H PRN PRN udc 07/30/17 Magnesium Hydroxide [Milk Of Magnesia] 30 ml PO DAILY PRN PRN udc 07/30/17 Nitroglycerin [Nitrostat] 0.4 mg SUBLINGUAL Q5M PRN tablet 07/30/17 Nystatin Powder [Mycostatin Powder] 1 applic TOPICAL BID 07/30/17 Potassium Chloride [K-Dur] 20 meq PO DAILYCM 07/30/17 Primary Care Physician: Jonel Mckeon MD [Primary Care Provider] - Please follow up with your Primary Care Physician in: Not applicable. Proposed Discharge Date: 08/01/17
--- NOTE | 2017-08-01 08:08 | PCM.DC.SUM ---
Discharge Date and Diagnosis Date of Admission: 07/30/17 Date of Discharge: 08/01/17 - Secondary Discharge Diagnosis Chronic Problems Dementia (Chronic) Chronic obstructive pulmonary disease (Chronic) Former tobacco use (Chronic) Dementia (Chronic) Skin cancer (Chronic) Anemia (Chronic) Low back pain (Chronic) Sciatica (Chronic) Subacute delirium (Chronic) Hypokalemia (Chronic) Constipation (Chronic) GERD (gastroesophageal reflux disease) (Chronic) Iron deficiency anemia (Chronic) Depression (Chronic) Pulmonary embolism (Chronic) History of pulmonary embolism (Chronic) Status post total right knee replacement (Chronic) Hyperlipidemia (Chronic) Hypertension (Chronic) Chronic lower back pain (Chronic) Hospital Course and Treatment Imaging Results: Clinical Impression(s) from Imaging Studies KUB X-Ray 07/30/17 21:30 IMPRESSION: No acute abnormalities are seen in the abdomen or pelvis. There is moderate stool in the rectum. A small right pleural effusion cannot be excluded. Electronically Signed: Ángela Rivera MD at 22:24 EST Tel Direct: [phone], Service support , Labs (Last 48 Hours) 07/31/17 07/31/17 05:15 05:15 WBC 15.5 H RBC 4.06 L Hgb 10.0 L Hct 33.4 L MCV 82.3 MCH 24.6 L MCHC 29.9 L RDW 17.0 H RDW Differential 50.9 H Plt Count 318 MPV 9.8 Immature Gran % (Auto) 0.500 Neut % (Auto) 76.3 H Lymph % (Auto) 16.4 L [place] % (Auto) 6.5 Eos % (Auto) 0.2 Baso % (Auto) 0.1 Absolute Neuts (auto) 11.8 H Absolute Lymphs (auto) 2.54 Total Counted Not Reportable Nucleated RBC % 0.4 Absolute Retic 0.06 Sodium 144 Potassium 4.0 Chloride 107 Carbon Dioxide 27.0 Anion Gap 10 BUN 54 H Creatinine 1.25 Estim Creat Clear Calc 56.04 Est GFR (MDRD) Af Amer 72 Est GFR (MDRD) Non-Af 60 BUN/Creatinine Ratio 43.2 H Glucose 115 H Calcium 8.4 L Operations: None, - Procedures: None Summary of Care Provided: The patient is a 76 year old M kelby with below past medical history hospitalized for acute kidney injury, NSTEMI, acute on chronic systolic heart failure, cardiac catheterization not recommended, admitted to TCU for debility, rehabilitation, strengthening, prior to discharge home with spouse.[] 08/01/2017 Resident short of breath, aerosol given, became unresponsive, transferred to [facility] Emergency Department, developed bradycardia, suffered respiratory arrest and . Home Medications: Medications to take at Discharge Duloxetine Hcl [Cymbalta] 60 mg PO DAILY 07/11/16 Omeprazole [Prilosec] 40 mg PO DAILY 09/20/16 Memantine HCl/Donepezil HCl [Namzaric 28 mg-10 mg Capsule] 1 each PO QHS 07/22/17 Multivit-Min/FA/Lycopen/Lutein [Centrum Silver Tablet] 1 each PO DAILY 07/22/17 Oxycodone Myristate [Xtampza ER] 18 mg PO BID 07/22/17 Albuterol Aerosols [Ventolin Aerosols] 2.5 mg INHALATION Q2H PRN PRN vial.neb. 07/30/17 Aspirin E.C. [Ecotrin] 81 mg PO DAILY@0800 07/30/17 Atorvastatin Calcium [Lipitor] 40 mg PO QHS 07/30/17 Carvedilol [Coreg (Beta Ceci)] 6.25 mg PO BID 07/30/17 Furosemide [Lasix] 40 mg PO DAILY 07/30/17 HydrALAZINE [Apresoline] 10 mg PO TID 07/30/17 Ipratropium/Albuterol Sulfate [Duoneb] 3 ml INHALATION Q6HWA.RT 07/30/17 Mag Hydrox/Al Hydrox/Simeth [Mylanta II] 30 ml PO Q6H PRN PRN udc 07/30/17 Magnesium Hydroxide [Milk Of Magnesia] 30 ml PO DAILY PRN PRN udc 07/30/17 Nitroglycerin [Nitrostat] 0.4 mg SUBLINGUAL Q5M PRN tablet 07/30/17 Nystatin Powder [Mycostatin Powder] 1 applic TOPICAL BID 07/30/17 Potassium Chloride [K-Dur] 20 meq PO DAILYCM 07/30/17 Primary Care Physician: Jonel Mckeon MD [Primary Care Provider] - Please follow up with your Primary Care Physician in: Not applicable. Disposition: Minutes spent on discharge:: 15 Patient Condition:: Poor Meaningful Use Info Meaningful Use Diagnoses (Choose all that apply): CHF - CHF JANINE/ARB ordered at discharge?: No Reason JANINE/ARB not ordered?: Worsening renal function Documented LVEF (%): 15
--- NOTE | 2017-08-03 10:25 | MDS.RN ---
Information for the mds was obtained from review of the clinical record, interview of resident, staff, and direct observation of resident's care.
== END 2017-08-01 07:13 | disposition short-term general hospital (02) | DRG 947 ==
PROVIDERS: Admitting Provider Family Medicine Geriatric Medicine; Family Provider Family Medicine; PCP Family Medicine; Visit Provider Family Medicine Geriatric Medicine
DX: R53.81 Other malaise (principal); I50.23 Acute on chronic systolic (congestive) heart failure; G30.9 Alzheimer's disease, unspecified; J44.9 Chronic obstructive pulmonary disease, unspecified; E87.6 Hypokalemia; F02.80 Dementia in other diseases classified elsewhere, unspecified severity, without behavioral disturbance, psychotic disturbance, mood disturbance, and anxiety; B35.4 Tinea corporis; E78.5 Hyperlipidemia, unspecified; R41.82 Altered mental status, unspecified; K21.9 Gastro-esophageal reflux disease without esophagitis; I11.0 Hypertensive heart disease with heart failure; G89.29 Other chronic pain; M54.9 Dorsalgia, unspecified; F32.9 Major depressive disorder, single episode, unspecified; I25.2 Old myocardial infarction; Z86.711 Personal history of pulmonary embolism; Z85.828 Personal history of other malignant neoplasm of skin; Z79.899 Other long term (current) drug therapy; Z79.82 Long term (current) use of aspirin; Z87.891 Personal history of nicotine dependence
CPT/HCPCS: 36415; 74018; 80048; 85025; 92526; 92610; 94640; 97110; 97162; 97165; 97530; 97535; 97802

== ENCOUNTER 2017-08-01 05:18 | Emergency (ER) | payer MEDICARE, OTHER, SELFPAY ==
[2017-08-01 05:18] VITALS: BP 93/47; PULSE 65; RESP 32; TEMP 35.6; BMI 34.3
--- NOTE | 2017-08-01 05:24 | EKG12_ITS ---
Test Reason : BUILDING [employer]CTION [employer] Blood Pressure : / mmHG Vent. Rate : 063 BPM Atrial Rate : 063 BPM P-R Int : 272 ms QRS Dur : 112 ms QT Int : 532 ms P-R-T Axes : 035 076 137 degrees QTc Int : 544 ms Sinus rhythm with 1st degree A-V block with occasional Premature ventricular complexes Incomplete left bundle branch block Nonspecific T wave abnormality Prolonged QT Abnormal ECG Confirmed by ROSA JACKSON, JOHN ([id number]), editor dictionary FLORENCIA BECKHAM ([id number]) on 08/07/2017 2:53:48 PM Referred By: CHINO Confirmed By:JOHN LEE MD
[2017-08-01] MEDS: Naloxone 2 MG/2 ML Syringe IV (05:25)
[2017-08-01] MEDS: 0.9% Normal Saline 1,000 ML 1000 ML IV (05:25)
[2017-08-01 05:32] VITALS: PULSE 65; RESP 24
--- NOTE | 2017-08-01 05:32 | ED.RN ---
UNABLE TO OBTAIN PULSE OX AT THIS TIME. FINGERS COLD.
[2017-08-01 05:40] LABS: Base Excess -9 mmol/L (-2 to +2); Bicarbonate 15.9 mmol/L (22-26); Blood Gas Specimen Type ART; O2 Delivery Device NRB Mask; PO2 87 mmHG (75-100); SITE R Brachial; SO2 97 % (95-99); Total Carbon Dioxide 17 mmol/L; pCO2 26.4 mmHg (35-45); pH 7.39 (7.35-7.45)
--- NOTE | 2017-08-01 05:49 | ED.RN ---
[address] FARFAN AT BED SIDE, STARTED BAGGING PT. 0535 PULSE CHECK, NO PULSE, CONTINUED TO BAG. 0538 WEAK FEMORAL PULSE FELT, DR. FARFAN SUCTIONED PT, NO GAG REFLEX. 0539, NO PULSE PEA, DR. FARFAN DID ULTRASOUND AT BEDSIDE, VALVE WAS FLUTTERING. NO HEART CONTRACTION. 0540, MORPHINE 4 MG GIVEN IV. TIME OF CALLED BY DR. FARFAN AT 0549.
--- NOTE | 2017-08-01 06:47 | ED.DCSUM_ITS ---
- ER Visit Summary Date of Service: 08/01/17 Chief Complaint: Unresponsive History of Present Illness: The patient is a 76 M presents to the emergency department from the TCU unresponsive. History is hard to gather as the patient is not responsive. He was recently admitted with acute kidney injury requiring temporary dialysis. He also had an NSTEMI. The patient was transferred to TCU for rehab. Prior to transfer, the decision was made with the family that they did not want any aggressive therapy and the patient was made comfort care arrest with no intubation. He was seen normal in the evening. He actually had a breathing treatment sometime after midnight. They check him again in the patient had labored respirations, diminished pulses, and was not responsive. Rapid response was called on the floor and the patient was brought down. The patient was not responsive to sternal rub. He was not responsive to voice. Again, all history was gathered from the charts. Physical Examination: Elderly male in obvious distress. Patient has agonal respirations with diminished air movement. Pupils are fixed. There is no extraocular motion. Head is normocephalic. Skin is pallorous. The patient is diaphoretic. He is cyanotic. He moves no extremities. Heart sounds are diminished. There is little air movement. Abdomen is soft. Test Results: [] Emergency Department Course and Treatment: The patient had what appears to be agonal respirations with diminished air movement. He has diminished pulses and decreased blood pressure. I have made an immediate attempt to call his to confirm his Comfort Care status but there is no answer. IV was established. The patient was on opiate analgesics so he was given Narcan with no change. He continued to have worsening of his respiratory status. The patient had a witnessed respiratory arrest. As he was Comfort Care arrest, CPR was not started. The patient did appear to have some mild discomfort with his breathing. I did attempt to bag the patient to see if there was any hypercapnia, but this did not change the patient's symptoms at all. The patient lost peripheral pulses after he had stopped breathing prior to morphine being given. Bedside ultrasound confirmed agonal cardiac activity with little to no contractility. The patient was not able to be resuscitated. Time of was called at 0549. I did notify Dr. Parham who was agreeable to sign the certificate. I discussed this with the patient's and daughter. The patient was pronounced. Treatment Plan: [] Disposition: [] Impression: 1. Cardiopulmonary arrest This note was generated with 1DayLater dictation software. It may contain incorrect words, spelling, and punctuation that were not noted in review of the chart prior to signing ED Disposition - Plan for ED Patient: Chief Complaint: Unresponsive Referrals: Jonel Mckeon MD [Primary Care Provider] -
[2017-08-01 07:15] LABS: Bedside Glucose 84 mg/dL (70-110)
== END 2017-08-01 08:46 ==
PROVIDERS: Emergency Provider Emergency Medicine; Family Provider Family Medicine; PCP Family Medicine
DX: I46.9 Cardiac arrest, cause unspecified (principal); N17.9 Acute kidney failure, unspecified; I21.4 Non-ST elevation (NSTEMI) myocardial infarction
CPT/HCPCS: 36600; 82803; 82962; 93005; 96374; 96375; 99284; J7030; A4216